=== PATIENT | female | born 1995 | race African-American/Black ===

== ENCOUNTER 2023-02-11 20:47 | Outpatient (REF) | payer MEDICAID, SELFPAY ==
[2023-02-16 15:08] LABS: Age Gdln ACOG Testing Note (.); IGP, rfx Aptima HPV ASCU Note (.)
== END 2023-02-11 20:48 ==
LOC: LAB 20:47
PROVIDERS: PCP Family Medicine; Visit Provider Physician Assistant
DX: Z12.4 Encounter for screening for malignant neoplasm of cervix (principal)
CPT/HCPCS: G0145

== ENCOUNTER 2023-02-14 08:26 | Outpatient (OUT) | payer MEDICAID, SELFPAY ==
[2023-02-14 09:31] LABS: Glucose 1 Hour 161 mg/dL; Thyroid Stimulating Hormone 0.508 uIU/mL (0.358-3.740)
[2023-02-16 18:07] LABS: AFP Value 38.1 ng/mL (.); Gest. Age on Collection Date 18.4 weeks (.); Gestat. Age Based On As provided (.); Insulin Dep Diabetes No (.); Maternal Age At EDD 27.7 yr (.); OSBR Risk 1 IN 10000 (.); Results Report (.)
== END 2023-02-14 08:27 ==
LOC: LAB 08:26
PROVIDERS: PCP Family Medicine; Visit Provider Obstetrics & Gynecology
DX: O26.892 Other specified pregnancy related conditions, second trimester (principal); E74.39 Other disorders of intestinal carbohydrate absorption; R73.09 Other abnormal glucose; R94.5 Abnormal results of liver function studies; N92.6 Irregular menstruation, unspecified
CPT/HCPCS: 36415; 82105; 82950; 84443

== ENCOUNTER 2023-03-12 09:37 | Outpatient (OUT) | payer MEDICAID, SELFPAY ==
--- NOTE | 2023-03-12 09:55 | US_ITS ---
Patient: SHADIA PARKS Exam Date: 03/12/2023 : 1995 Gender:F Ordering : DR Santino Mancini . Admission #: [id number] Family : DR Chan Pedro . Order #: [id number] CLICK HERE TO VIEW EXAM RADIOLOGY REPORT PROCEDURE: US BREAST RT LIMITED COMPARISON: None. INDICATIONS: Right Breast Lump N63.15 TECHNIQUE: Breast ultrasound was performed, with evaluation focusing only on specific areas of concern. FINDINGS: DIAGNOSTIC CATEGORY 1--NEGATIVE. RIGHT BREAST: No significant suspicious finding. RECOMMENDATIONS: CLINICAL EVALUATION. PLEASE NOTE: A NORMAL ULTRASOUND EXAMINATION DOES NOT EXCLUDE THE POSSIBILITY OF BREAST CANCER. A CLINICALLY SUSPICIOUS PALPABLE LUMP SHOULD BE BIOPSIED. Dictated by: Dominic Winkler M.D. on 03/12/2023 at 15:04 Approved by: Dominic Winkler M.D. on 03/12/2023 at 15:05
--- NOTE | 2023-03-12 09:56 | US_ITS ---
[address] [address] Patient Name: SHADIA PARKS MRN: [id number] date: 1995 Sex: F Assigned Patient Location: [place] Current Patient Location: [place] Accession/Order Number: [id number] Exam Date: 03/12/2023 10:00 Report Date: 03/12/2023 16:02 At the request of: ROBINA HOWE Procedure: US OB cervical length EXAMINATION: US OB anatomy, US OB cervical length HISTORY: Second Trimester Z34.92 COMPARISON: No relevant comparison available. TECHNIQUE: Transabdominal sonographic examination was performed for obstetrical and evaluation. FINDINGS: Number: 1 Heart Rate: 145.9 bpm H.B. /min Amniotic Fluid Volume: Subjectively normal Placental Location: Posterior with lower margin 0.4 cm from os. Cervix Length: 4.6 cm; closed. ANATOMY: Normal Structures -cerebellum, choroid plexus, cisterna magna, lateral cerebral ventricles, orbits, midline falx, hard palate, four-chamber heart, RVOT, LVOT, stomach, kidneys, bladder, umbilical cord insertion into abdomen, three-vessel cord, cervical spine, thoracic spine, lumbar spine, sacral spine, right upper extremity, left upper extremity, right lower extremity, left lower extremity. SUBOPTIMALLY SEEN: None ABNORMALITIES: Small amount of free fluid surrounding the heart and septation versus prominent cordae tendineae within left ventricle. BIOMETRY: BPD: 4.7 cm 20 weeks 1 days ; less than 3% HC: 17.7 cm 20 weeks 1 days; less than 3% AC: 15.7 cm 20 weeks 6 days; less than 3% FL: 3.6 cm 21 weeks 3 days; 5% EFW:391.4 grams; less than 3% FL/AC: 22.9 FL/BPD: 77.0 HC/AC: 1.1 GESTATIONAL AGE: Age by EDC: 23 weeks 0 days ABDIRIZAK by EDC: 07/09/2023 Age by current US: 20 weeks 5 days ABDIRIZAK by current US: 07/25/2023 US/US OB cervical length IMPRESSION: 1. Single live intrauterine with growth detailed above. 2. Estimated weight is less than 3rd percentile. 3. There appears to be small amount of fluid surrounding the heart and questionable prominent cordae tendineae versus septation within the left ventricle. Follow-up recommended. Electronically authenticated by: MELVIN LUGO Date: 03/12/2023 16:02
--- NOTE | 2023-03-12 09:56 | US_ITS ---
[address] [address] Patient Name: SHADIA PARKS MRN: [id number] date: 1995 Sex: F Assigned Patient Location: US Current Patient Location: US Accession/Order Number: [id number] Exam Date: 03/12/2023 10:00 Report Date: 03/12/2023 16:02 At the request of: ROBINA HOWE Procedure: US OB anatomy EXAMINATION: US OB anatomy, US OB cervical length HISTORY: Second Trimester Z34.92 COMPARISON: No relevant comparison available. TECHNIQUE: Transabdominal sonographic examination was performed for obstetrical and evaluation. FINDINGS: Number: 1 Heart Rate: 145.9 bpm H.B. /min Amniotic Fluid Volume: Subjectively normal Placental Location: Posterior with lower margin 0.4 cm from os. Cervix Length: 4.6 cm; closed. ANATOMY: Normal Structures -cerebellum, choroid plexus, cisterna magna, lateral cerebral ventricles, orbits, midline falx, hard palate, four-chamber heart, RVOT, LVOT, stomach, kidneys, bladder, umbilical cord insertion into abdomen, three-vessel cord, cervical spine, thoracic spine, lumbar spine, sacral spine, right upper extremity, left upper extremity, right lower extremity, left lower extremity. SUBOPTIMALLY SEEN: None ABNORMALITIES: Small amount of free fluid surrounding the heart and septation versus prominent cordae tendineae within left ventricle. BIOMETRY: BPD: 4.7 cm 20 weeks 1 days ; less than 3% HC: 17.7 cm 20 weeks 1 days; less than 3% AC: 15.7 cm 20 weeks 6 days; less than 3% FL: 3.6 cm 21 weeks 3 days; 5% EFW:391.4 grams; less than 3% FL/AC: 22.9 FL/BPD: 77.0 HC/AC: 1.1 GESTATIONAL AGE: Age by EDC: 23 weeks 0 days ABDIRIZAK by EDC: 07/09/2023 Age by current US: 20 weeks 5 days ABDIRIZAK by current US: 07/25/2023 US/US OB anatomy IMPRESSION: 1. Single live intrauterine with growth detailed above. 2. Estimated weight is less than 3rd percentile. 3. There appears to be small amount of fluid surrounding the heart and questionable prominent cordae tendineae versus septation within the left ventricle. Follow-up recommended. Electronically authenticated by: MELVIN LUGO Date: 03/12/2023 16:02
== END 2023-03-12 09:38 | disposition home or self-care (01) ==
LOC: US 09:37
PROVIDERS: PCP Family Medicine; Visit Provider Obstetrics & Gynecology
DX: Z34.92 Encounter for supervision of normal pregnancy, unspecified, second trimester (principal); N63.15 Unspecified lump in the right breast, overlapping quadrants
CPT/HCPCS: 76642; 76805; 76817

== ENCOUNTER 2023-04-24 00:56 | Observation (INO) | payer MEDICAID, SELFPAY ==
[2023-04-24 01:24] VITALS: BP 106/54; PULSE 84
[2023-04-24 01:26] VITALS: BP 106/54; PULSE 84; RESP 18; TEMP 36.8
[2023-04-24 02:02] LABS: Bilirubin Urine NEGATIVE (NEGATIVE); Blood Urine NEGATIVE (NEGATIVE); Clarity Urine CLEAR (CLEAR); Color Urine YELLOW (YELLOW); Glucose Urine UA NEGATIVE (NEGATIVE); Ketones Urine NEGATIVE (NEGATIVE); Leukocyte Esterase Urine NEGATIVE (NEGATIVE); Nitrite Urine NEGATIVE (NEGATIVE); Protein Urine NEGATIVE (NEG/TRACE); Specific Gravity Urine 1.025 (1.005-1.025); Urobilinogen Urine 0.2 EU/dL (0.2-1.0); pH Urine 6.5 (5.0-9.0)
[2023-04-24 02:05] LABS: Urine Microscopic Indicated NO
== END 2023-04-24 10:07 | disposition home or self-care (01) ==
PROVIDERS: Admitting Provider Obstetrics & Gynecology; PCP Family Medicine; Visit Provider Obstetrics & Gynecology
DX: O46.90 Antepartum hemorrhage, unspecified, unspecified trimester (principal); Z3A.00 Weeks of gestation of pregnancy not specified
CPT/HCPCS: 59025; 81003; G0378; G0379

== ENCOUNTER 2023-06-09 08:10 | Outpatient (OUT) | payer MEDICAID, SELFPAY ==
[2023-06-09 08:44] LABS: Glucose Fasting 84 mg/dL (74-106)
[2023-06-09 10:37] LABS: Glucose 1 Hour 138 mg/dL
[2023-06-09 11:16] LABS: Glucose 2 Hour 124 mg/dL
[2023-06-09 12:08] LABS: Glucose 3 Hour 135 mg/dL
== END 2023-06-09 08:11 | disposition home or self-care (01) ==
LOC: LAB 08:12
PROVIDERS: PCP Family Medicine; Visit Provider Obstetrics & Gynecology
DX: R73.09 Other abnormal glucose (principal)
CPT/HCPCS: 36415; 82951; 82952

== ENCOUNTER 2023-06-11 10:28 | Outpatient (OUT) | payer MEDICAID, SELFPAY ==
--- NOTE | 2023-06-11 10:30 | US_ITS ---
[address] [address] Patient Name: SHADIA PARKS MRN: [id number] date: 1995 Sex: F Assigned Patient Location: US Current Patient Location: US Accession/Order Number: [id number] Exam Date: 06/11/2023 10:30 Report Date: 06/11/2023 17:12 At the request of: ROBINA HOWE Procedure: US OB follow up EXAMINATION: US OB follow up HISTORY: FOLLOW UP FOR FLUID AROUND HEART COMPARISON: Ultrasound OB anatomy 03/12/2023 FINDINGS: Presentation: Cephalic Heart rate: 146 bpm Anatomy: Inadequate evaluation of heart due to position. No appreciable free fluid around the heart. GA: 35 weeks 1 day ABDIRIZAK: 07/15/2023 US/US OB follow up IMPRESSION: 1. Single live intrauterine . 2. Inadequate evaluation of the heart. Additional follow-up recommended. Electronically authenticated by: MELVIN LUGO Date: 06/11/2023 17:12
== END 2023-06-11 10:29 | disposition home or self-care (01) ==
LOC: US 10:29
PROVIDERS: PCP Family Medicine; Visit Provider Obstetrics & Gynecology
DX: Z36.2 Encounter for other antenatal screening follow-up (principal); Z3A.35 35 weeks gestation of pregnancy
CPT/HCPCS: 76816

== ENCOUNTER 2023-06-18 19:21 | Outpatient (REF) | payer MEDICAID, SELFPAY | END 2023-06-18 19:22 | disposition home or self-care (01) | LOC: LAB 19:21 | PROVIDERS: PCP Family Medicine; Visit Provider Obstetrics & Gynecology | DX: Z34.93 Encounter for supervision of normal pregnancy, unspecified, third trimester (principal) | CPT/HCPCS: 87081 ==

== ENCOUNTER 2023-06-26 10:13 | Outpatient (OUT) | payer MEDICAID, SELFPAY ==
--- NOTE | 2023-06-26 10:13 | US_ITS ---
[address] [address] Patient Name: SHADIA PARKS MRN: [id number] date: 1995 Sex: F Assigned Patient Location: US Current Patient Location: US Accession/Order Number: [id number] Exam Date: 06/26/2023 10:15 Report Date: 06/26/2023 15:08 At the request of: ROBINA HOWE Procedure: US OB growth EXAMINATION: US OB growth HISTORY: LGA COMPARISON: Ultrasound OB anatomy 03/12/2023 FINDINGS: Heart Rate: 137.0 bpm Number: 1.0 Position: CEPHALIC Amniotic Fluid Volume: 13.6 cm Maximum Vertical Pocket: 4.3 cm BIOMETRY: BPD: 8.3 cm cm; 33 weeks 2 days; <3% HC: 31.2 cmcm; 34 weeks 6 days ; < 3% AC: 32.5 cm cm; 36 weeks 3 days; 40% FL: 7.2 cm cm; 36 weeks 4 days; 33% EFW: 2809.5 grams; 24% FL/AC: 22.0 FL/BPD: 86.6 HC/AC: 1.0 GESTATIONAL AGE: Age by EDC: 37 weeks 2 days ABDIRIZAK by EDC: 07/15/2023 Age by US: 35 weeks 2 days ABDIRIZAK by US: 07/29/2023 US/US OB growth IMPRESSION: 1. Single live intrauterine with growth detailed above. 2. Biparietal diameter and head circumference are both < 3rd percentile. Electronically authenticated by: MELVIN LUGO Date: 06/26/2023 15:08
== END 2023-06-26 10:14 | disposition home or self-care (01) ==
LOC: US 10:13
PROVIDERS: PCP Family Medicine; Visit Provider Obstetrics & Gynecology
DX: O26.843 Uterine size-date discrepancy, third trimester (principal); Z3A.37 37 weeks gestation of pregnancy
CPT/HCPCS: 76816

== ENCOUNTER 2023-07-08 09:51 | Inpatient (IN) | payer MEDICAID, SELFPAY ==
[2023-07-08] VITALS (38 sets, daily range): BP systolic 86–131; BP diastolic 51–87; PULSE 64–92; RESP 14–24; TEMP 35.9–36.9; O2SAT 96–100
[2023-07-08] MEDS: 0.9 % SODIUM CHLORIDE 1,000 ML 1000 ML IV (11:00)
[2023-07-08] MEDS: 0.9 % SODIUM CHLORIDE 1,000 ML 125 ML IV (11:35)
[2023-07-08 11:45] LABS: Bilirubin Urine NEGATIVE (NEGATIVE); Blood Urine NEGATIVE (NEGATIVE); Clarity Urine CLEAR (CLEAR); Color Urine YELLOW (YELLOW); Glucose Urine UA NEGATIVE (NEGATIVE); Ketones Urine NEGATIVE (NEGATIVE); Leukocyte Esterase Urine NEGATIVE (NEGATIVE); Nitrite Urine NEGATIVE (NEGATIVE); Protein Urine 30 mg/dL (NEG/TRACE)
[2023-07-08 11:51] LABS: Amphetamine Screen Urine NEGATIVE (NEGATIVE); Barbiturates Screen Urine NEGATIVE (NEGATIVE); Benzodiazepines Screen Urine NEGATIVE (NEGATIVE); Buprenorphine Screen Urine NEGATIVE (NEGATIVE); Cannabinoid Screen Urine POSITIVE (NEGATIVE); Cocaine Screen Urine NEGATIVE (NEGATIVE); Methadone Screen Urine NEGATIVE (NEGATIVE); Methamphetamines Screen Urine NEGATIVE (NEGATIVE); Opiate Screen Urine NEGATIVE (NEGATIVE); Oxycodone Screen Urine NEGATIVE (NEGATIVE); Phencyclidine Screen Urine NEGATIVE (NEGATIVE); Tricyclic Antidepressant Urine NEGATIVE (NEGATIVE)
[2023-07-08 11:52] LABS: Basophils Percent Auto 0.2 % (0.2-2.0); Eosinophils Absolute Auto 0.1 10^3/uL (0.0-0.7); Eosinophils Percent Auto 0.4 % (0.9-7.0); Hematocrit 30.6 % (36.0-48.0); Hemoglobin 9.3 g/dL (12.0-16.0); Immature Granulocytes Abs Auto 0.08 10^3/uL (0.00-0.03); Immature Granulocytes Pct Auto 0.6 % (0.0-0.5); Lymphocytes Absolute Auto 2.9 10^3/uL (1.2-3.8); Lymphocytes Percent Auto 20.7 % (20.5-60.0); Mean Corpuscular HGB Conc 30.4 g/dL (29.9-35.2); Mean Corpuscular Hemoglobin 25.9 pg (26.7-34.0); Mean Corpuscular Volume 85.2 fL (81.0-99.0); Mean Platelet Volume 9.3 fL (9.5-13.5); Monocytes Absolute Auto 0.9 10^3/uL (0.3-0.8); Monocytes Percent Auto 6.2 % (1.7-12.0); Neutrophils Absolute Auto 10.1 10^3/uL (1.4-6.5); Neutrophils Percent Auto 71.9 % (43.0-75.0); Platelet Count 253 10^3/uL (150-450); Red Blood Count 3.59 10^6/uL (4.20-5.40); Red Cell Distribution Width 15.6 % (11.0-15.0)
[2023-07-08 11:56] LABS: Bacteria Urine TRACE #/HPF (NONE SEEN); Cast Seen? NONE SEEN #/LPF (NONE SEEN); Crystals Seen? None Seen #/HPF (None Seen); Mucus Urine SMALL (NONE SEEN); Squamous Epithelial Cell Urine MODERATE #/LPF (NONE/RARE)
[2023-07-08] MEDS: CEFAZOLIN SODIUM/DEXTROSE,ISO 2 GM/50 ML PIGGYBACK IV ×2 (12:21→17:52)
[2023-07-08] MEDS: LACTATED RINGER'S SOLUTION 1,000 ML 50 ML IV ×2 (12:44→13:18)
--- NOTE | 2023-07-08 13:30 | P.ON_ITS ---
Brief Operative Note Date of procedure: 07/08/23 Pre-op diagnosis: iup at 39wks, previous c/s, desires sterilization Post-op diagnosis: same as pre-op Procedure: NAME OF PROCEDURE: [ section with bilateral salpingectomy ] PROCEDURE: Patient was taken back to the Operating Room where she was given a spinal anesthesia with Duramorph without difficulty. She was prepped and draped in the normal sterile fashion. A Pfannenstiel skin incision was then made 2?cm above the symphysis pubis and carried down to underlying rectus fascia using a Bovie. The fascia was incised in the midline and extended laterally using Buck scissors. Two Alvin clamps were placed on the superior aspect of the fascia and dissected off the underlying rectus muscles. The same was performed on the inferior aspect as well. The muscles were then in the midline. Peritoneum was identified and entered bluntly. The peritoneum was then extended superiorly and inferiorly with good visualization of the bladder. The bladder blade was inserted. Vesicouterine peritoneum was identified, tented up, and entered with Metzenbaum scissors. A bladder flap was then created digitally. The bladder blade was reinserted. A low transverse incision was made on the patient's uterus and extended laterally digitally. The infant was then delivered atraumatically after the bladder blade was removed in the cephalic position. The cord was clamped and cut. Cord blood was obtained. The infant was handed off to awaiting team. The patient's placenta was spontaneously delivered. The uterus was then exteriorized. The uterus was cleared of all clots and debris. The bladder blade was reinserted. The patient's uterine incision was closed using #0 Vicryl in a running lock fashion. Excellent hemostasis was assured.? The rt tube was identified and grasped with babock, the ligasure was used to transect and ligate the tube in its entirity, this was done on the contralateral side as well. The uterus was then returned to the patient's abdomen. The patient's abdomen was copiously irrigated using warm saline. Peritoneal gutters were cleared of all clots and debris. Again excellent hemostasis was assured. The patient's fascia was closed using #0 Vicryl in a running fashion. The patie nt's skin was closed using 4-0 Vicryl subcuticularly. The patient tolerated the procedure well. Sponge, lap, and needle counts were correct x2. The patient was taken to the Recovery Room in stable condition. Anesthesia: spinal Surgeon: Santino Mancini [employer] Secretary: Kylah Vila Estimated blood loss (mL): 600 Pathology: other (placenta and tubes) Condition: stable Disposition: PACU
--- NOTE | 2023-07-08 13:34 | PM.OBPRCCS ---
Procedure Pre-op/Post-op diagnoses: Pre-Op/Post-Op Diagnoses Operation Date: 07/08/23 12:15 <No data on this case meets the specified criteria> Procedure: Procedures Operation Date: 07/08/23 12:15 Actual Procedure Side Surgeon p repeat with salpingectomy Not Applicable Santino Mancini DO Jewelry Consultant: Sadaf Vila Estimated blood loss (mL): 600 Disposition: floor Anesthesia type: Spinal
[2023-07-08] MEDS: OXYTOCIN/0.9 % SODIUM CHLORIDE 20 UNITS/1,000 ML PLAST..BAG 125 UNIT IV (14:00)
[2023-07-08] MEDS: ONDANSETRON 4 MG RAPDIS TABLET PO (15:20)
[2023-07-08] MEDS: KETOROLAC TROMETHAMINE 30 MG/ML VIAL IVP ×2 (15:20→23:14)
[2023-07-08] MEDS: PROMETHAZINE HCL 25 MG/ML VIAL IV (20:06)
[2023-07-08] MEDS: ENOXAPARIN SODIUM 40 MG/0.4 ML SYRINGE SUBQ (23:14)
[2023-07-09] VITALS (7 sets, daily range): BP systolic 104–121; BP diastolic 56–71; PULSE 71–72; RESP 16; TEMP 36.2–36.8
[2023-07-09] MEDS: 0.9 % SODIUM CHLORIDE 1,000 ML 999 ML IV (05:02)
[2023-07-09 06:21] LABS: Basophils Percent Auto 0.2 % (0.2-2.0); Eosinophils Absolute Auto 0.1 10^3/uL (0.0-0.7); Eosinophils Percent Auto 0.7 % (0.9-7.0); Hematocrit 26.8 % (36.0-48.0); Hemoglobin 8.2 g/dL (12.0-16.0); Immature Granulocytes Abs Auto 0.08 10^3/uL (0.00-0.03); Immature Granulocytes Pct Auto 0.6 % (0.0-0.5); Lymphocytes Absolute Auto 3.3 10^3/uL (1.2-3.8); Lymphocytes Percent Auto 23.9 % (20.5-60.0); Mean Corpuscular HGB Conc 30.6 g/dL (29.9-35.2); Mean Corpuscular Hemoglobin 25.8 pg (26.7-34.0); Mean Corpuscular Volume 84.3 fL (81.0-99.0); Mean Platelet Volume 9.5 fL (9.5-13.5); Monocytes Absolute Auto 1.2 10^3/uL (0.3-0.8); Monocytes Percent Auto 8.3 % (1.7-12.0); Neutrophils Absolute Auto 9.2 10^3/uL (1.4-6.5); Neutrophils Percent Auto 66.3 % (43.0-75.0); Platelet Count 240 10^3/uL (150-450); Red Blood Count 3.18 10^6/uL (4.20-5.40); Red Cell Distribution Width 15.8 % (11.0-15.0); White Blood Count 13.9 10^3/uL (4.0-11.0)
--- NOTE | 2023-07-09 06:51 | PM.OBPN ---
OB - PN: Subj Subjective Patient comments: no complaints and pain well controlled [place] status: doing well Exam Constitutional Vital Signs, click to edit/add: Last Vital Signs Temp 98.2 F 07/09/23 04:14 Pulse 72 07/09/23 04:14 Resp 16 07/09/23 04:14 BP 104/62 07/09/23 04:14 Pulse Ox 100 07/08/23 15:30 O2 Del Method Room Air 07/09/23 04:14 Documenting provider has reviewed patient's vital signs: yes Common normals: no apparent distress Respiratory Common normals: normal respiratory effort and clear to auscultation bilaterally Cardio Common normals: regular rate and regular rhythm GI Common normals: Normal to inspection, nondistended, normoactive bowel sounds present Extremity Common normals: no clubbing, cyanosis or edema and no calf tenderness Results Labs Labs: Short CBC 07/08/23 07/09/23 Range/Units 10:05 06:07 WBC 14.0 H 13.9 H (4.0-11.0) 10^3/uL Hgb 9.3 L 8.2 L (12.0-16.0) g/dL Hct 30.6 L 26.8 L (36.0-48.0) % Plt Count 253 240 (150-450) 10^3/uL Urine 07/08/23 Range/Units 10:30 Urine Color Yellow (YELLOW) Urine Clarity Clear (CLEAR) Urine pH 8.0 (5.0-9.0) Ur Specific [place] 1.020 (1.005-1.025) Urine Protein 30 A (NEG/TRACE) mg/dL Urine Glucose (UA) Negative (NEGATIVE) mg/dL OB - PN: A/P Plan - day: 1 Plan: routine postop care Time Spent with Patient Time: Total time spent is greater than 50% in coordination of care (as documented) at patient's floor/unit and/or counseling patient: Total time spent with greater than 50% in coordination of care (as documented) at patient's floor/unit and/or counseling patient: less than 15 minutes
--- NOTE | 2023-07-09 08:06 | PC.NURSE ---
Awake and alert, plan of care discussed, voices no complaints-discussed hx of depression and orders recieved by physician for antidepressant therapy, urine clearing in sanchez, iv continues at 125 ml/hr, dr dye in room
[2023-07-09] MEDS: KETOROLAC TROMETHAMINE 30 MG/ML VIAL IVP (08:35)
[2023-07-09] MEDS: CITALOPRAM HYDROBROMIDE 20 MG TABLET PO (08:35)
[2023-07-09] MEDS: DOCUSATE SODIUM 100 MG CAPSULE PO (08:36)
[2023-07-09] MEDS: IBUPROFEN 400 MG TABLET 800 MG PO ×2 (15:36→23:16)
--- NOTE | 2023-07-09 19:29 | W.PC.ACHO ---
Registration Status: ADM IN Primary Language: Guatemalan Preferred Language: Guatemalan report given Active Medications Generic Name Dose Route Start Last Admin Trade Name Freq PRN Reason Stop Dose Admin Al Hydroxide/Mg Hydroxide 2,400 mg 07/08/23 13:27 Magnesium Hydroxide 2,400 Mg/10 Ml Oral.Susp PO Q6H PRN Dyspepsia Diphenhydramine HCl 25 mg 07/08/23 13:27 Diphenhydramine Hcl 50 Mg/Ml (1ml) Vial IV 07/09/23 13:28 Q6H PRN Itching Diphtheria/Pertussis/Tetanus Vacc 0.5 ml 07/10/23 09:00 Adacel Diph,Pertuss(Acell),Tet Vac/Pf 0.5 Ml Adult Syringe IM 07/10/23 09:01 .ONCE ONE Docusate Sodium 100 mg 07/09/23 09:00 Docusate Sodium 100 Mg Capsule PO BID MINDI Enoxaparin Sodium 40 mg 07/08/23 23:00 07/08/23 23:14 Enoxaparin Sodium 40 Mg/0.4 Ml Syringe SUBQ 40 mg Q24H MINDI Administration Sodium Chloride 1,000 mls @ 125 mls/hr 07/08/23 11:15 07/09/23 05:02 Sodium Chloride 0.9% 1,000 Ml IV 999 mls/hr .Q8H MINDI Administration Ibuprofen 800 mg 07/08/23 13:27 Ibuprofen 400 Mg Tablet PO Q8H PRN Pain Ketorolac Tromethamine 30 mg 07/08/23 13:27 07/08/23 23:14 Ketorolac Tromethamine 30 Mg/Ml Vial IVP 07/10/23 13:28 30 mg Q6H PRN Administration Pain Measles/Mumps/Rubella Vaccine Live 0.5 ml 07/10/23 09:00 Measles,Mumps,Rubella Vacc/Pf 0.5 Ml Vial SQ 07/10/23 09:01 .ONCE ONE Ondansetron HCl 4 mg 07/08/23 13:27 07/08/23 15:20 Ondansetron 4 Mg Rapdis Tablet PO 4 mg Q6H PRN Administration Nausea And Vomiting Ondansetron HCl 4 mg 07/08/23 13:27 Ondansetron Pf 4 Mg/2 Ml Vial IV Q6H PRN Nausea And Vomiting Oxycodone/Acetaminophen 1 tab 07/08/23 13:27 Oxycodone Hcl/Acetaminophen 5mg/325mg PO Q4H PRN Pain Scale 4-6 Oxycodone/Acetaminophen 2 tab 07/08/23 13:27 Oxycodone Hcl/Acetaminophen 5mg/325mg PO Q4H PRN Pain Scale 7-10 Promethazine HCl 25 mg 07/08/23 19:12 07/08/23 20:06 Promethazine Hcl 25 Mg/Ml Vial IV 25 mg Q6H PRN Administration Nausea And Vomiting Senna 17.2 mg 07/08/23 20:00 Sennosides 8.6 Mg Tablet PO QHS PRN Constipation Simethicone 80 mg 07/08/23 13:27 Simethicone 80 Mg Tab.Chew PO QID PRN Abdominal Distention Diet Category Date Time Status Regular Consistency Diet Diet 07/08/23 13:28 Active IV Insertion/Site Date of IV Line Insertion [18g 07/08/23 right Upper Arm] IV Insertion Time [18g right 10:55 Upper Arm] Neurology Patient orientation (short person list) Respiratory Lung sounds [Throughout] Inspiratory Wheeze Lung sounds [Throughout] Inspiratory Wheeze Lung sounds [Throughout] Inspiratory Wheeze Pulse Oximetry 100 Pulse Oximetry 100 Pulse Oximetry 100 Pulse Oximetry 100 Pulse Oximetry 100 Pulse Oximetry 100 Pulse Oximetry 96 Pulse Oximetry 100 Pulse Oximetry 100 Pulse Oximetry 100 Pulse Oximetry 99 Pulse Oximetry 100 Pulse Oximetry 100 Pulse Oximetry 100 Pulse Oximetry 100 Pulse Oximetry 100 Pulse Oximetry 100 Pulse Oximetry 100 Pulse Oximetry 99 Pulse Oximetry 99 Oxygen Delivery Method Room Air Oxygen Delivery Method Room Air Oxygen Delivery Method Room Air Oxygen Delivery Method Room Air Oxygen Delivery Method Room Air Oxygen Delivery Method Room Air Oxygen Delivery Method Room Air Oxygen Delivery Method Room Air Oxygen Delivery Method Room Air Oxygen Delivery Method Room Air Oxygen Delivery Method Room Air Oxygen Delivery Method Room Air Oxygen Delivery Method Room Air Oxygen Delivery Method Room Air Cardiology Heart Sounds Strong,Regular Heart Sounds Strong,Regular Heart Sounds Strong,Regular Catheter Urinary Catheter Date of 07/08/23 Insertion [Urethral] Urinary Catheter Time of 10:43 Insertion [Urethral]
--- NOTE | 2023-07-09 19:30 | W.PC.ACHO ---
Registration Status: ADM IN Primary Language: Nauruan Preferred Language: Nauruan Report recieved from David Gandhi RN. Active Medications Generic Name Dose Route Start Last Admin Trade Name Freq PRN Reason Stop Dose Admin Al Hydroxide/Mg Hydroxide 2,400 mg 07/08/23 13:27 Magnesium Hydroxide 2,400 Mg/10 Ml Oral.Susp PO Q6H PRN Dyspepsia Celecoxib 20 mg 07/09/23 08:15 07/09/23 08:35 Citalopram Hydrobromide 20 Mg Tablet PO 20 mg QD MINDI Administration Diphtheria/Pertussis/Tetanus Vacc 0.5 ml 07/10/23 09:00 Adacel Diph,Pertuss(Acell),Tet Vac/Pf 0.5 Ml Adult Syringe IM 07/10/23 09:01 .ONCE ONE Docusate Sodium 100 mg 07/09/23 09:00 07/09/23 08:36 Docusate Sodium 100 Mg Capsule PO 100 mg BID MINDI Administration Enoxaparin Sodium 40 mg 07/08/23 23:00 07/08/23 23:14 Enoxaparin Sodium 40 Mg/0.4 Ml Syringe SUBQ 40 mg Q24H MINDI Administration Sodium Chloride 1,000 mls @ 125 mls/hr 07/08/23 11:15 07/09/23 05:02 Sodium Chloride 0.9% 1,000 Ml IV 999 mls/hr .Q8H MINDI Administration Ibuprofen 800 mg 07/08/23 13:27 07/09/23 15:36 Ibuprofen 400 Mg Tablet PO 800 mg Q8H PRN Administration Pain Ketorolac Tromethamine 30 mg 07/08/23 13:27 07/09/23 08:35 Ketorolac Tromethamine 30 Mg/Ml Vial IVP 07/10/23 13:28 30 mg Q6H PRN Administration Pain Measles/Mumps/Rubella Vaccine Live 0.5 ml 07/10/23 09:00 Measles,Mumps,Rubella Vacc/Pf 0.5 Ml Vial SQ 07/10/23 09:01 .ONCE ONE Ondansetron HCl 4 mg 07/08/23 13:27 07/08/23 15:20 Ondansetron 4 Mg Rapdis Tablet PO 4 mg Q6H PRN Administration Nausea And Vomiting Ondansetron HCl 4 mg 07/08/23 13:27 Ondansetron Pf 4 Mg/2 Ml Vial IV Q6H PRN Nausea And Vomiting Oxycodone/Acetaminophen 1 tab 07/08/23 13:27 Oxycodone Hcl/Acetaminophen 5mg/325mg PO Q4H PRN Pain Scale 4-6 Oxycodone/Acetaminophen 2 tab 07/08/23 13:27 Oxycodone Hcl/Acetaminophen 5mg/325mg PO Q4H PRN Pain Scale 7-10 Promethazine HCl 25 mg 07/08/23 19:12 07/08/23 20:06 Promethazine Hcl 25 Mg/Ml Vial IV 25 mg Q6H PRN Administration Nausea And Vomiting Senna 17.2 mg 07/08/23 20:00 Sennosides 8.6 Mg Tablet PO QHS PRN Constipation Simethicone 80 mg 07/08/23 13:27 Simethicone 80 Mg Tab.Chew PO QID PRN Abdominal Distention Respiratory Oxygen Delivery Method Room Air Oxygen Delivery Method Room Air Oxygen Delivery Method Room Air Oxygen Delivery Method Room Air Oxygen Delivery Method Room Air Oxygen Delivery Method Room Air Cardiology Heart Sounds Strong,Regular Heart Sounds Strong,Regular Bowels Date of Last Bowel Movement [ 07/09/23 All Quadrants]
[2023-07-09] MEDS: ENOXAPARIN SODIUM 40 MG/0.4 ML SYRINGE SUBQ (23:16)
[2023-07-10 04:37] VITALS: BP 117/73; PULSE 72
[2023-07-10 04:42] VITALS: PULSE 72; RESP 14; TEMP 36.8
[2023-07-10] MEDS: IBUPROFEN 400 MG TABLET 800 MG PO (07:28)
[2023-07-10 07:30] VITALS: BP 114/70; PULSE 66; RESP 16; TEMP 36.6
--- NOTE | 2023-07-10 07:33 | W.PC.ACHO ---
Registration Status: ADM IN Primary Language: South Sudanese Preferred Language: [place]ese Report given to Hermelindo Crabtree RN. Active Medications Generic Name Dose Route Start Last Admin Trade Name Freq PRN Reason Stop Dose Admin Al Hydroxide/Mg Hydroxide 2,400 mg 07/08/23 13:27 Magnesium Hydroxide 2,400 Mg/10 Ml Oral.Susp PO Q6H PRN Dyspepsia Celecoxib 20 mg 07/09/23 08:15 07/09/23 08:35 Citalopram Hydrobromide 20 Mg Tablet PO 20 mg QD MINDI Administration Diphtheria/Pertussis/Tetanus Vacc 0.5 ml 07/10/23 09:00 Adacel Diph,Pertuss(Acell),Tet Vac/Pf 0.5 Ml Adult Syringe IM 07/10/23 09:01 .ONCE ONE Docusate Sodium 100 mg 07/09/23 09:00 07/09/23 20:24 Docusate Sodium 100 Mg Capsule PO Not Given BID MINDI Enoxaparin Sodium 40 mg 07/08/23 23:00 07/09/23 23:16 Enoxaparin Sodium 40 Mg/0.4 Ml Syringe SUBQ 40 mg Q24H MINDI Administration Sodium Chloride 1,000 mls @ 125 mls/hr 07/08/23 11:15 07/09/23 05:02 Sodium Chloride 0.9% 1,000 Ml IV 999 mls/hr .Q8H MINDI Administration Ibuprofen 800 mg 07/08/23 13:27 07/10/23 07:28 Ibuprofen 400 Mg Tablet PO 800 mg Q8H PRN Administration Pain Ketorolac Tromethamine 30 mg 07/08/23 13:27 07/09/23 08:35 Ketorolac Tromethamine 30 Mg/Ml Vial IVP 07/10/23 13:28 30 mg Q6H PRN Administration Pain Measles/Mumps/Rubella Vaccine Live 0.5 ml 07/10/23 09:00 Measles,Mumps,Rubella Vacc/Pf 0.5 Ml Vial SQ 07/10/23 09:01 .ONCE ONE Ondansetron HCl 4 mg 07/08/23 13:27 07/08/23 15:20 Ondansetron 4 Mg Rapdis Tablet PO 4 mg Q6H PRN Administration Nausea And Vomiting Ondansetron HCl 4 mg 07/08/23 13:27 Ondansetron Pf 4 Mg/2 Ml Vial IV Q6H PRN Nausea And Vomiting Oxycodone/Acetaminophen 1 tab 07/08/23 13:27 Oxycodone Hcl/Acetaminophen 5mg/325mg PO Q4H PRN Pain Scale 4-6 Oxycodone/Acetaminophen 2 tab 07/08/23 13:27 Oxycodone Hcl/Acetaminophen 5mg/325mg PO Q4H PRN Pain Scale 7-10 Promethazine HCl 25 mg 07/08/23 19:12 07/08/23 20:06 Promethazine Hcl 25 Mg/Ml Vial IV 25 mg Q6H PRN Administration Nausea And Vomiting Senna 17.2 mg 07/08/23 20:00 Sennosides 8.6 Mg Tablet PO QHS PRN Constipation Simethicone 80 mg 07/08/23 13:27 Simethicone 80 Mg Tab.Chew PO QID PRN Abdominal Distention Respiratory Oxygen Delivery Method Room Air Oxygen Delivery Method Room Air Bowels Date of Last Bowel Movement [ 07/09/23 All Quadrants]
--- NOTE | 2023-07-10 08:44 | PM.OBPN ---
OB - PN: Subj Subjective Patient comments: no complaints and pain well controlled [place] status: doing well Exam Constitutional Vital Signs, click to edit/add: Last Vital Signs Temp 97.9 F 07/10/23 07:30 Pulse 66 07/10/23 07:30 Resp 16 07/10/23 07:30 BP 114/70 07/10/23 07:30 Pulse Ox 100 07/08/23 15:30 O2 Del Method Room Air 07/10/23 07:30 Documenting provider has reviewed patient's vital signs: yes Common normals: no apparent distress Respiratory Common normals: normal respiratory effort and clear to auscultation bilaterally Cardio Common normals: regular rate and regular rhythm GI Common normals: Normal to inspection, nondistended, normoactive bowel sounds present Extremity Common normals: no clubbing, cyanosis or edema and no calf tenderness OB - PN: A/P Plan - day: 2 Plan: routine postop care, discharge home and follow up 6 weeks Time Spent with Patient Time: Total time spent is greater than 50% in coordination of care (as documented) at patient's floor/unit and/or counseling patient: Total time spent with greater than 50% in coordination of care (as documented) at patient's floor/unit and/or counseling patient: less than 15 minutes
[2023-07-10] MEDS: CITALOPRAM HYDROBROMIDE 20 MG TABLET PO (08:50)
--- NOTE | 2023-07-20 | DS_ITS ---
DISCHARGE DATE: ??07/20/2023 PRIMARY DIAGNOSES: 1.? Intrauterine at 39 weeks. 2.? Previous . 3.? Desires permanent sterilization. PROCEDURE:? section with bilateral salpingectomy. HOSPITAL COURSE:? As expected.? Please see chart for full details.? LABORATORY DATA:? Please see chart. COMPLICATIONS:? None. DISCHARGE CONDITION:? Stable. CONSULTATION:? Anesthesia. DISCHARGE INSTRUCTIONS: 1.? Diet:? Regular. 2.? Medications: a.? Percocet 5/325 one to two p.o. every 4-6 hours p.r.n. pain. b.? Motrin 800 one p.o. every 8 hours p.r.n. pain. 3.? Followup in one week. Restrictions:? Pelvic rest for 6 weeks.? No heavy lifting.? May drive when pain free and no longer on narcotics. MTDD
== END 2023-07-10 10:45 | disposition home or self-care (01) | DRG 539 ==
PROVIDERS: Admitting Provider Obstetrics & Gynecology; PCP Family Medicine; Visit Provider Obstetrics & Gynecology
PROC: 10D00Z1 Extraction of Products of Conception, Low, Open Approach (ICD-10-PCS; CPT 59514; principal; 2023-07-08 12:15)
DX: O34.211 Maternal care for low transverse scar from previous cesarean delivery (principal); O99.334 Smoking (tobacco) complicating childbirth; F17.210 Nicotine dependence, cigarettes, uncomplicated; Z3A.39 39 weeks gestation of pregnancy; Z37.0 Single live birth; Z79.82 Long term (current) use of aspirin; Z79.899 Other long term (current) drug therapy; Z83.3 Family history of diabetes mellitus; Z83.49 Family history of other endocrine, nutritional and metabolic diseases; Z82.49 Family history of ischemic heart disease and other diseases of the circulatory system; Z83.2 Family history of diseases of the blood and blood-forming organs and certain disorders involving the immune mechanism; Z81.8 Family history of other mental and behavioral disorders; Z23 Encounter for immunization
CPT/HCPCS: 36415; 51702; 80307; 81001; 85025; 86850; 86900; 86901; 88302; 96372; 96374; 96376

== ENCOUNTER 2025-04-14 15:45 | Outpatient (OUT) | payer MEDICAID, SELFPAY ==
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
--- OUTSIDE RECORDS SUMMARY | 2024-03-02 12:15 | XMS_ITS ---
Author Organization The [facility] in [place] Address [address] [place] [address] Care Team Providers Care Hospice Volunteer Coordinator Name Role Phone Reno Rangel Primary Care Provider Allergies No Known Allergies REASON FOR VISIT yearly- meds, Discuss Iron pills- said was on those in the past Medications Medication SIG (Take, Route, Frequency, Duration) Notes Start Date End Date Status Citalopram Hydrobromide 40 MG 1 tablet Orally Once a day for 30 days Active Abilify 15 MG 1 tablet Orally Once a day Active Social History Tobacco Use: Social History Observation Description Date Details (start date - stop date) Current Smoker 08/31/2015 - NA Tobacco Control (Standard) Question Answer Notes Tobacco use: Current smoker When did you start smoking? 08/31/2015 How often do you smoke cigarettes? Every day How many cigarettes a day do you smoke? 11-20 Additional Findings: Tobacco user Modera te cigarette smoker (10-19 cigs/day) AUDIT-C (Standard) Question Answer Notes Did you have a drink contain ing alcohol in the past year? Yes How often did you have six o r more drinks on one occasion in the past year? Never (0 point) How many drinks did you have on a typical day when you were drinking in the past year? 1 or 2 drinks (0 point) How often did you have a dri nk containing alcohol in the past year? Monthly or less (1 point) Points 1 Interpretation Negative Problems Problem Type SNOMED Code ICD Code Onset Dates Problem Status W/U Status Risk Notes Problem Well adult (620992433) Well adult (Z00.00) Active confirmed Vital Signs Weight 220.4 lbs 03/02/2024 Height 63 in 03/02/2024 Blood pressure systolic 108 mm Hg 03/02/20 24 Blood pressure diastolic 64 mm Hg 024 BMI 39.04 kg/m2 03/02/2024 Encounters Encounter Location Date Provider Diagnosis [facility] [address] [place] [address] 03/02/2024 Reno Rangel Well adult Z00.0 0 Assessments Encounter Date Diagnosis (ICD Code) Assessment Notes Treatment Notes Treatment Clinical Notes Section Notes 03/02/2024 Well adult (ICD-10 - Z00.00) Plan Of Treatment Medication Medication Name Sig Start Date Stop Date Notes Citalopram Hydrobromide 40 MG 1 tablet O rally Once a day for 30 days Abilify 15 MG 1 tablet Orally Once a day Pending Test Test Name Order Date CBC AUTO DIFF 03/02/2024 FERRITIN 03/02/2024 GLYCOHEMOGLOBIN A1C 03/02/2024 IRON 03/02/2024 LIPID PROFILE 03/02/2024 PROF 14(COMP METB) 03/02/2024 THYROID PROFILE WITH TSH 03/02/2024 Progress Notes * Prachi PARKS MDOB:[birth year] (28 yo F)Acc No.[id number]:03/02/2024 Progress Note Patient: Prachi CORONEL Provider: Nathaly Rangel ([facility])MD :1995 A ge:28 Y S ex:Female Date:03/02/2024 Address:[facility] [address], [id number] Check In:04:26 PM ESTCheck O ut:04:42 PM EST Subjective: * Chief Complaints: * Y early- medsDiscuss Iron pills- said was on those in the past * HPI: D epression Screening: PHQ-2 (2015 Edition) L ittle interest or pleasure in doing things??Not at all F eeling down, depressed, or hopeless? N ot at all T otal Score 0 G eneral: no issues. * ROS: E ENT: hearing changes d enies, denies. v isual changes d enies, denies. n on-healing mouth sores d enies, denies. s wollen glands or neck lumps?denies, denies. h oarseness d enies, denies. s ore throat d enies, denies. d ifficulty swallowing d enies, denies. n ose bleeds d enies, denies. n walker congestion d enies, denies. e ar ache d enies, denies. e ar discharge d enies, denies.?ringing in ears d enies, denies. l ight sensitivity d enies, denies. e ye pain denies, denies. b lurring d enies, denies. e ye irritation d enies, denies. d ouble vision d enies, denies. v ision loss d enies, denies. G eneral/Constitutional: Sweats: D enies, Denies. F atigue d enies, denies.?Sleep problems d enies, denies. A norexia d enies, denies. M alaise d enies, denies. W eight loss d enies, denies. F atigue or Weakness d enies, denies. F ever or Chills d enies, denies. C ardiovascular: Shortness of Breath w/lying flat d enies, denies. L ightheadedness/dizziness d enies, denies. C hest tightness/ heavy pressure d enies, denies.?Swelling of legs, ankles, or feet d enies, denies. W aking up with shortness of breath denies, denies. C hest pain d enies, denies. P alpitations d enies, denies.?Weight gain d enies, denies. R espiratory: Chronic or frequent cough d enies, denies. C oughing up blood d enies, denies. D ifficulty breathing d enies, denies. P roductive cough?denies, denies. S noring d enies, denies. S hortness of breath that awakens from sleep (PND) d enies, denies. C hest pain d enies, denies. S putum production d enies, denies. W heezing d enies, denies. M usculoskeletal: Joint pain d enies, denies. J oint Fluid d enies, denies. B ack pain d enies, denies. K nee pain d enies, denies. N abraham pain d enies, denies. J oint Stiffness d enies, denies. M uscle cramps d enies, denies. Weakness of muscles d enies, denies. A rthritis d enies, denies. M uscle aches?denies, denies. P ain in shoulder(s) d enies, denies. S wollen joints d enies, denies. * Active Problem List N93.8 Dysfunctional uterin e bleeding Modified On:01/06/2024 Status:confirmed L91.8 Acquired skin tag Modified On:01/18/2024 Status:confirmed M54.12 Cervical radicular p ain Modified On:01/18/2024 Status:confirmed L30.9 Eczema Modified On:01/18/2024 Status:confirmed J01.90 Acute sinusitis Modified On:01/18/2024 Status:confirmed N92.1 Breakthrough bleedin g Modified On:01/18/2024 Status:confirmed R53.83 Fatigue Modified On:01/18/2024 Status:confirmed E66.01 Morbid obesity Modified On:01/18/2024 Status:confirmed Z00.00 Annual physical exam Modified On:01/18/2024 Status:confirmed Z00.00 Well adult Modified On:03/02/2024 Status:confirmed * Medical History: * Surgical History: C ESAREAN DELIVERY x3 * Hospitalization/Major Diagno stic Procedure: s ee above * Family History: F ather: alive, colon cancer, Hypercholesterolemia, diagnosed with Other malignant neoplasm of unspecified site. M other: alive, Heart Attack, , Hypercholesterolemia. B rother(s): alive. Sister(s): alive. D sherieer(s): alive. 1 brother(s) , 1 sister(s) - healthy. 3 daughter(s) - healthy. . * Social History: T obacco Use: T obacco Control (Standard) T obacco use: C urrent smoker W hen did you start smoking? 0 08/31/2015 H ow often do you smoke cigarettes? E very day H ow many cigarettes a day do you smoke? 1 1-20 A dditional Findings: Tobacco user M oderate cigarette smoker (10-19 cigs/day) D rug/Alcohol: A DIPAK-C (Standard) D id you have a drink containing alcohol in the past year? Y es H ow often did you have six or more drinks on one occasion in the past year? N ever (0 point) H ow many drinks did you have on a typical day when you were drinking in the past year? 1 or 2 drinks (0 point) H ow often did you have a drink containing alcohol in the past year? M onthly or less (1 point) P oints 1 I nterpretation N egative * Medications: T akingAbilify(ARIPiprazole) 10 MG Tablet 1 tablet Orally Once a day Citalopram Hydrobromide 40 MG Tablet 1 tablet Orally Once a day Medication List reviewed and reconciled with the patientTaking Abilify(ARIPiprazole) 10 MG Tablet 1 tablet Orally Once a day Taking Citalopram Hydrobromide 40 MG Tablet 1 tablet Orally Once a day Medication List reviewed and reconciled with the patient * Allergies: N .K.D.A.no[Allergies Verified] Objective: * Vitals: W t:220.4lbs, Ht: 63 in, BP:108/64mm Hg, BMI:39.04Index, Ht-cm: 160.02 cm, Wt-k.97 kg. * Examination: P hysical Exam: GENERAL: w ell developed, well nourished, in no acute distress , well developed, well nourished, in no acute distress. HEAD: n ormocephalic/atraumatic , normocephalic/atraumatic.? EYES: p upils equal, round and reactive to light, conjunctivae and sclerae normal , pupils equal, round and reactive to light, conjunctivae and sclerae normal.? EARS: n o deformity or lesion of external ear, canals and TM appear normal bilaterally, TM's intact, not inflamed with normal light reflex, hearing grossly normal to conversational speech , no deformity or lesion of external ear, canals and TM appear normal bilaterally, TM's intact, not inflamed with normal light reflex, hearing grossly normal to conversational speech. NOSE: n o deformity, discharge, inflammation, or lesions , no deformity, discharge, inflammation, or lesions. MOUTH: m ucous membranes moist, normal oropharynx and posterior pharynx without lesions or exudates, tongue normal, dentition normal , mucous membranes moist, normal oropharynx and posterior pharynx without lesions or exudates, tongue normal, dentition normal. NECK: n abraham supple, no masses or palpable cervical nodes, trachea midline, thyroid without nodules, masses, tenderness, or enlargement , neck supple, no masses or palpable cervical nodes, trachea midline, thyroid without nodules, masses, tenderness, or enlargement. CHEST: n o chest wall deformity, no chest wall tenderness , no chest wall deformity, no chest wall tenderness. LUNGS: n ormal respiratory effort and clear to auscultation, no wheezes, rales, or rhonchi, good air exchange , normal respiratory effort and clear to auscultation, no wheezes, rales, or rhonchi, good air exchange. CARDIO: r egular rate and rhythm, normal S1 and S2, nor murmur, rub, or gallop , regular rate and rhythm, normal S1 and S2, nor murmur, rub, or gallop. PULSES: n ormal capillary refill , normal capillary refill.? ABDOMEN: s oft, non-distended, non-tender, no masses , soft, non-distended, non-tender, no masses. MUSCULOSKELETAL: n o deformity or scoliosis noted, normal range of motion, joints normal, no erythema, edema, effusion, or ecchymosis , no deformity or scoliosis noted, normal range of motion, joints normal, no erythema, edema, effusion, or ecchymosis. EXTREMITY: n o clubbing, cyanosis, edema, or deformity with normal ROM in both upper and lower bilateral extremities , no clubbing, cyanosis, edema, or deformity with normal ROM in both upper and lower bilateral extremities. NEUROLOGIC: g rossly normal , grossly normal. SKIN: n o rashes, ulcerations, or suspicious lesions , no rashes, ulcerations, or suspicious lesions. LYMPH NODES: n o cervical adenopathy, nodes normal , no cervical adenopathy, nodes normal. MENTAL STATUS: a lert and oriented x3, normal mood and affect , alert and oriented x3, normal mood and affect. Assessment: * Assessment: 1. W ell adult - Z00.00 (Primary) Plan: * Treatment: * Procedure Codes: * Preventive Medicine: Screenings/Counseling: B ND ACTION PLAN Above Normal BMI Follow-up D ietary management education, guidance, and counseling * * Sign off status: Completed Visit Status: C HK (Check Out) true * Provider: Nathaly Rangel ([facility])MD Date: 03/02/2024 Generated for Keii sonya/Marcelo/eTransmitting on: 0 04/14/2025 03:48 PM EDT History and Physical Notes * HPI (History of Present Illness) Category Sub-Category Detail Notes Category Not es General no issues Depression Screening PHQ-2 (2015 Edition) Little interest or pleasure in doing things?: Not at all Feeling down, depressed, or hopeless?: N ot at all Total Score: 0 Examination Category Sub-Category Detail Notes Category Not es Physical Exam GENERAL: well developed, well nourished, in no acute distress , well developed, well nourished, in no acute distress HEAD: normocephalic/atraum atic , normocephalic/atraumatic EYES: pupils equal, round and reactive to light, conjunctivae and sclerae normal , pupils equal, round and reactive to light, conjunctivae and sclerae normal EARS: no deformity or lesi on of external ear, canals and TM appear normal bilaterally, TM's intact, not inflamed with normal light reflex, hearing grossly normal to conversational speech , no deformity or lesion of external ear, canals and TM appear normal bilaterally, TM's intact, not inflamed with normal light reflex, hearing grossly normal to conversational speech NOSE: no deformity, discha rge, inflammation, or lesions , no deformity, discharge, inflammation, or lesions MOUTH: mucous membranes florin st, normal oropharynx and posterior pharynx without lesions or exudates, tongue normal, dentition normal , mucous membranes moist, normal oropharynx and posterior pharynx without lesions or exudates, tongue normal, dentition normal NECK: neck supple, no mass es or palpable cervical nodes, trachea midline, thyroid without nodules, masses, tenderness, or enlargement , neck supple, no masses or palpable cervical nodes, trachea midline, thyroid without nodules, masses, tenderness, or enlargement CHEST: no chest wall deform ity, no chest wall tenderness , no chest wall deformity, no chest wall tenderness LUNGS: normal respiratory e ffort and clear to auscultation, no wheezes, rales, or rhonchi, good air exchange , normal respiratory effort and clear to auscultation, no wheezes, rales, or rhonchi, good air exchange CARDIO: regular rate and rhy thm, normal S1 and S2, nor murmur, rub, or gallop , regular rate and rhythm, normal S1 and S2, nor murmur, rub, or gallop PULSES: normal capillary ref ill , normal capillary refill ABDOMEN: soft, non-distended, non-tender, no masses , soft, non-distended, non- tender, no masses RECTAL: MUSCULOSKELETAL: no deformity or scol iosis noted, normal range of motion, joints normal, no erythema, edema, effusion, or ecchymosis , no deformity or scoliosis noted, normal range of motion, joints normal, no erythema, edema, effusion, or ecchymosis EXTREMITY: no clubbing, cyanosi s, edema, or deformity with normal ROM in both upper and lower bilateral extremities , no clubbing, cyanosis, edema, or deformity with normal ROM in both upper and lower bilateral extremities NEUROLOGIC: grossly normal , maxx ssly normal SKIN: no rashes, ulceratio ns, or suspicious lesions , no rashes, ulcerations, or suspicious lesions LYMPH NODES: no cervical adenopat hy, nodes normal , no cervical adenopathy, nodes normal MENTAL STATUS: alert and oriented x 3, normal mood and affect , alert and oriented x3, normal mood and affect
--- OUTSIDE RECORDS SUMMARY | 2024-03-02 12:47 | XMS_ITS ---
Author Organization The [facility] in [place] Address [address] [place] [address] Care Team Providers Care Blade Boner Name Role Phone AshishReno brock Primary Care Provider [phone] IDALMIS RANGEL Unavailable [phone] REASON FOR VISIT refill meds Medications Medication SIG (Take, Route, Frequency, Duration) Notes Start Date End Date Status Citalopram Hydrobromide 40 MG 1 tablet Orally Once a day for 30 days Active Abilify 15 MG 1 tablet Orally Once a day for 30 days Active Encounters Encounter Location Date Provider Diagnosis [address] [address] 03/02/2024 IDALMIS RANGEL Well adult Z00.00 Assessments Encounter Date Diagnosis (ICD Code) Assessment Notes Treatment Notes Treatment Clinical Notes Section Notes 03/02/2024 Well adult (ICD-10 - Z00.00) Plan Of Treatment Medication Medication Name Sig Start Date Stop Date Notes Citalopram Hydrobromide 40 MG 1 tablet O rally Once a day for 30 days Abilify 15 MG 1 tablet Orally Once a day for 30 days Progress Notes * Prachi PARKS MDOB:[birth year] (28 yo F)Acc No.[id number]:03/02/2024 Patient: Scar EAGLEPrachi :1995 A ge:28 Y S ex:Female Address:[address] [place] [address] * Refills Refill Abilify Tablet, 15 MG, Orally, 30, 1 tablet, Once a day, 30 days, Refills=11 Refill Citalopram Hydrobromide Tablet, 40 MG, Orally, 30 Tablet, 1 tablet, Once a day, 30 days, Refills=11 * true * Date: Generated for Rhett hassan/Marcelo/Petritting on: 0 04/14/2025 03:48 PM EDT
--- OUTSIDE RECORDS SUMMARY | 2025-04-11 04:45 | XMS_ITS ---
Author Organization [facility] in [place] Address [address] [place] [address] Care Team Providers Care Publisher Assistant Name Role Phone Reno Pedro Primary Care Provider Allergies No Known Allergies REASON FOR VISIT wellness- work PE Medications Medication SIG (Take, Route, Fr equency, Duration) Notes Start Date End Date Status Adipex-P 37.5 MG 1 tablet before yue kfast Orally Once a day 04/11/2025 Active Social History Tobacco Use: Social History [...] user Modera te cigarette smoker (10-19 cigs/day) Problems Problem Type SNOMED Code ICD Code Onset Dates Problem Status W/U Status Risk Notes Problem Obesity (817437105) Obesity (E66.9) Active confirmed Vital Signs Weight 258.4 lbs 04/11/2025 Height 63 in 04/11/2025 Blood pressure systolic 112 mm Hg 04/11/20 25 Blood pressure diastolic 74 mm Hg 025 BMI 45.77 kg/m2 04/11/2025 Encounters Encounter Location Date Provider Diagnosis [facility] [address] [place] [address] 04/11/2025 Reno Pedro Well adult Z00.00 ; Dysfunctional uterine bleeding N93.8 and Obesity E66.9 Assessments Encounter Date Diagnosis (ICD Code) Assessment Notes Treatment Notes Treatment Clinical Notes Section Notes 04/11/2025 Well adult (ICD-10 - Z00.00) off bipolar meds - and stable 04/11/2025 Dysfunctional uterine bleeding (ICD-10 - N93.8) 04/11/2025 Obesity (ICD-10 - E66.9) Plan Of Treatment Medication Medication Name Sig Start Date Stop Date Notes Adipex-P 37.5 MG 1 tablet before yue kfast Orally Once a day 04/11/2025 Treatment Notes Assessment Notes Well adult off bipolar meds - a nd stable Pending Test Test Name Order Date HEMOGLOBIN A1C (GLYCO) 04/11/2025 IRON, TOTAL 04/11/2025 LIPID PANEL (CHOL/TRIG/HDL/LDL) 04/11/20 25 Insulin Level 04/11/2025 FSH+LH+Prog+E2 04/11/2025 US PELVIS AND TRANSVAG 04/11/2025 THYROID PANEL (T4/TSH/FREE T3) 5 CMP (COMP MET NELSON) w/eGFR CKD-EPI 2024 CBC WITH DIFF 04/11/2025 Progress Notes * Prachi PARKS MDOB:[birth year] (29 yo F)Acc No.[id number]:04/11/2025 Progress Note Patient: Prachi CORONEL Provider: Nathaly Pedro ([facility])MD :1995 A ge:29 Y S ex:Female Date:04/11/2025 Address:[address] [place] [address] Rody PEREZ, [id number] Check In:08:33 AM ESTCheck O ut:09:07 AM EST Subjective: * Chief Complaints: * w ellness- work PE * HPI: G eneral: well adult no issues. * ROS: E ENT: hearing changes d enies. v isual changes d enies.?non-healing mouth sores d enies. s wollen glands or neck lumps d enies. h oarseness d enies. s ore throat d enies. d ifficulty swallowing d enies. n ose bleeds d enies. n walker congestion d enies. e ar ache d enies. e ar discharge?denies. r inging in ears d enies. l ight sensitivity d enies. e ye pain d enies. b lurring d enies. e ye irritation d enies. d ouble vision d enies.?vision loss d enies. G eneral/Constitutional: Sweats: D enies. F atigue d enies. S leep problems d enies. A norexia d enies. M alaise d enies. W eight loss d enies.?Fatigue or Weakness d enies. F ever or Chills d enies. C ardiovascular: Shortness of Breath w/lying flat d enies. L ightheadedness/dizziness d enies. C hest tightness/ heavy pressure d enies. S welling of legs, ankles, or feet d enies. W aking up with shortness of breath d enies. C hest pain denies. P alpitations d enies. W eight gain d enies. R espiratory: Chronic or frequent cough d enies. C oughing up blood?denies. D ifficulty breathing d enies. P roductive cough d enies. S noring?denies. S hortness of breath that awakens from sleep (PND) d enies. C hest pain d enies. S putum production d enies. W heezing d enies. M usculoskeletal: Joint pain d enies. J oint Fluid d enies. B ack pain d enies. K nee pain d enies. N abraham pain d enies. J oint Stiffness d enies. M uscle cramps d enies. W eakness of muscles d enies. A rthritis d enies. M uscle aches d enies. P ain in shoulder(s) d enies. S wollen joints d enies. * Active Problem List N93.8 Dysfunctional uterin e bleeding Modified On:01/06/2024W/U Status:confirmed L91.8 Acquired skin tag Modified On:01/18/2024W/U Status:confirmed M54.12 Cervical radicular p ain Modified On:01/18/2024 Status:confirmed L30.9 Eczema Modified On:01/18/2024 Status:confirmed J01.90 Acute sinusitis Modified On:01/18/2024 Status:confirmed N92.1 Breakthrough bleedin g Modified On:01/18/2024 Status:confirmed R53.83 Fatigue Modified On:01/18/2024 Status:confirmed E66.01 Morbid obesity Modified On:01/18/2024 Status:confirmed Z00.00 Annual physical exam Modified On:01/18/2024 Status:confirmed Z00.00 Well adult Modified On:03/02/2024 Status:confirmed E66.9 Obesity Modified On:04/11/2025 Status:confirmed * Medical History: * Surgical History: C ESAREAN DELIVERY x3 * Hospitalization/Major Diagno stic Procedure: s ee above * Family History: F ather: alive, colon cancer, Hypercholesterolemia, diagnosed with Other malignant neoplasm of unspecified site. M other: alive, Heart Attack, , Hypercholesterolemia. B rother(s): alive. Sister(s): alive. D prashanthhter(s): alive. 1 brother(s) , 1 sister(s) - [...] user M oderate cigarette smoker (10-19 cigs/day) * Medications: D iscontinuedAbilify(ARIPiprazole) 15 MG Tablet 1 tablet Orally Once a day Citalopram Hydrobromide 40 MG Tablet 1 tablet Orally Once a day Medication List reviewed and reconciled with the patientDiscontinued Abilify(ARIPiprazole) 15 MG Tablet 1 tablet Orally Once a day Discontinued Citalopram Hydrobromide 40 MG Tablet 1 tablet Orally Once a day Medication List reviewed and reconciled with the patient * Allergies: N .K.D.A.no[Allergies Verified] Objective: * Vitals: W t:258.4lbs, Ht: 63 in, BP:112/74mm Hg, BMI:45.77Index, Ht-cm: 160.02 cm, Wt-k.21 kg. * Examination: P hysical Exam: GENERAL: w ell developed, well nourished, in no acute distress. HEAD: n ormocephalic/atraumatic. EYES: p upils equal, round and reactive to light, conjunctivae and sclerae normal. EARS: n o deformity or lesion of external ear, canals and TM appear normal bilaterally, TM's intact, not inflamed with normal light reflex, hearing grossly normal to conversational speech. NOSE: n o deformity, discharge, inflammation, or lesions.? MOUTH: m ucous membranes moist, normal oropharynx and posterior pharynx without lesions or exudates, tongue normal, dentition normal. NECK: n abraham supple, no masses or palpable cervical nodes, trachea midline, thyroid without nodules, masses, tenderness, or enlargement. CHEST: n o chest wall deformity, no chest wall tenderness.? LUNGS: n ormal respiratory effort and clear to auscultation, no wheezes, rales, or rhonchi, good air exchange. CARDIO: r egular rate and rhythm, normal S1 and S2, nor murmur, rub, or gallop. PULSES: n ormal capillary refill. ABDOMEN: s oft, non-distended, non-tender, no masses. MUSCULOSKELETAL: n o deformity or scoliosis noted, normal range of motion, joints normal, no erythema, edema, effusion, or ecchymosis. EXTREMITY: n o clubbing, cyanosis, edema, or deformity with normal ROM in both upper and lower bilateral extremities. NEUROLOGIC: g rossly normal. SKIN: n o rashes, ulcerations, or suspicious lesions. LYMPH NODES: n o cervical adenopathy, nodes normal. MENTAL STATUS: a lert and oriented x3, normal mood and affect. Assessment: * Assessment: 1. W ell adult - Z00.00 (Primary) 2 . D ysfunctional uterine bleeding - N93.8 3 . O besity - E66.9 Plan: * Treatment: 2. D ysfunctional uterine bleeding I maging: US PELVIS AND TRANSVAG 3.?Obesity? Start Adipex-P Tablet, 37.5 MG, 1 tablet before breakfast, Orally, Once a day, 30.?? * Procedure Codes: * Preventive Medicine: Screenings/Counseling: B [place] ACTION PLAN Above Normal BMI Follow-up D ietary management education, guidance, and counseling * * Sign off status: Completed Visit Status: C HK (Check Out) true * Provider: Nathaly Pedro ([facility])MD Date: 04/11/2025 Generated for Printi ng/Faxing/eTransmitting on: 04/14/2025 03:48 PM EDT History and Physical Notes * HPI (History of Present Illness) Category Sub-Category Detail Notes Category Not es General well adult no issues Examination Category Sub-Category Detail Notes Category Not es Physical Exam GENERAL: well developed, well nourished, in no acute distress HEAD: normocephalic/atraum atic EYES: pupils equal, round and reactive to light, conjunctivae and sclerae normal EARS: no deformity or lesi on of external ear, canals and TM appear normal bilaterally, TM's intact, not inflamed with normal light reflex, hearing grossly normal to conversational speech NOSE: no deformity, discha rge, inflammation, or lesions MOUTH: mucous membranes florin st, normal oropharynx and posterior pharynx without lesions or exudates, tongue normal, dentition normal NECK: neck supple, no mass es or palpable cervical nodes, trachea midline, thyroid without nodules, masses, tenderness, or enlargement CHEST: no chest wall deform ity, no chest wall tenderness LUNGS: normal respiratory e ffort and clear to auscultation, no wheezes, rales, or rhonchi, good air exchange CARDIO: regular rate and rhy thm, normal S1 and S2, nor murmur, rub, or gallop PULSES: normal capillary ref ill ABDOMEN: soft, non-distended, non-tender, no masses RECTAL: MUSCULOSKELETAL: no deformity or scol iosis noted, normal range of motion, joints normal, no erythema, edema, effusion, or ecchymosis EXTREMITY: no clubbing, cyanosi s, edema, or deformity with normal ROM in both upper and lower bilateral extremities NEUROLOGIC: grossly normal SKIN: no rashes, ulceratio ns, or suspicious lesions LYMPH NODES: no cervical adenopat hy, nodes normal MENTAL STATUS: alert and oriented x 3, normal mood and affect
--- NOTE | 2025-04-14 15:48 | US_ITS ---
The [address] [address] Patient Name: SHADIA PARKS MRN: [id number] date: 1995 Sex: F Assigned Patient Location: Current Patient Location: Accession/Order Number: [id number] Exam Date: 04/14/2025 21:45 Report Date: 04/14/2025 21:48 At the request of: IDALMIS RANGEL MD Procedure: US pelvis transvaginal The pelvic ultrasound transabdominal transvaginal imaging HISTORY: Amenorrhea for 6 months. History of 3 C-sections. History of tubes removed. Uterus anteverted. Uterus measures 8.9 x 4.6 x 5.2 cm. Limited assessment due to patient body habitus. Endometrium has a total combined thickness of 7.5 mm. Right ovary not visualized. The left ovary measures 2.3 x 1.6 x 1.7 cm with resistive index of 0.6. Prominent vessels in the left adnexal region identified. US/US pelvis transvaginal IMPRESSION: Examination secondary patient body habitus. Nonvisualization of the right ovary. Unremarkable left ovary. Anteverted uterus. No uterine lesion. Unremarkable 7.5 mm thick endometrial complex Impression dictated by: Arvin Chisholm M.D. 04/14/2025 9:48 PM Dictation Location: [place] [address] Electronically authenticated by: [id number] Y Date: 04/14/2025 21:48
--- OUTSIDE RECORDS SUMMARY | 2025-04-14 15:48 | XMS_ITS | Encounter Summary ---
Author Organization [facility] Address [address] [place] [address] Care Team Providers Care Seafood Farmer Name Role Phone Chan Pedro MD Primary Care Provider [phone] Encounter Details Date Type Department Care Team (Late st Contact Info) Description 04/06/2023 Abstract [facility] [address] [place] [address] [place] [address] Sunita Edward LPN Social History Tobacco Use Types Packs/Day Years Used Date Smoking Tobacco: Every Day Cigarettes Comments Yes Sex and Gender Information Value Date Recorded Sex Assigned at Not on file Legal Sex Female 7:58 PM EDT Gender Identity Female 11/12/2022 7:58 PM EDT Sexual Orientation Not on file documented as of this encounter Plan of Treatment Not on file documented as of this encounter Visit Diagnoses Not on filedocumented in this encounter Care Teams Seafood Farmer Relationship Specialty Start Date End Date Chan Pedro MD PCP - General Family Medicine 02/11/23 documented as of this encounter
--- OUTSIDE RECORDS SUMMARY | 2025-04-14 15:48 | XMS_ITS | Encounter Summary ---
Author Organization [facility] Address [address] [place] [address] Care Team Providers Care Traffic Operations Manager Name Role Phone Chan Pedro MD Primary Care Provider [phone] Encounter Details Date Type Department Care Team (Late st Contact Info) Description 04/06/2023 External Result Encounter [facility] [address] [facility] [place] [address] Santino Mancini DO [address] [place] [address] Social History Tobacco Use Types Packs/Day Years Used Date Smoking Tobacco: Every Day Cigarettes Comments Yes Sex and Gender Information Value Date Recorded Sex Assigned at Not on file Legal Sex Female 7:58 PM EDT Gender Identity Female 11/12/2022 7:58 PM EDT Sexual Orientation Not on file documented as of this encounter Plan of Treatment Not on file documented as of this encounter Procedures Procedure Name Priority Date/Time Associated Diagnosis Comments US OB 14+ WEEKS ANATOMY SCAN 04/06/2023 1:35 PM EDT documented in this encounter Results * US OB 14+ weeks anatomy scan (04/06/2023 1:35 PM EDT) Anatomical Region Laterality Modality Body Ultrasound 04/06/2023 1:35 PM EDT Narrative 04/06/2023 1:34 PM EDT THIS EXAM WAS PERFORMED AT [facility] REPORT (Signed Final 04/06/2023 13:34) PATIENT INFO: ID #: [id number] : [birth year] (27 yrs)(F) Name: SHADIA CUNNINGHAM Visit Date: 04/06/2023 12:03 STEEL PERFORMED BY: Attending: Peter Tompkins MD Performed By: Sonia Mcduffie RDMS Referred By: Santino Soto. Address: [address] [place] [address] [place] [address] Location: [facility] [place] SERVICE(S) PROVIDED: Comprehensive Anatomic Survey 84206 INDICATIONS: Screening for anatomic survey Z36.89 Obesity in , antepartum O99.210 Prior O34.21 Screening for IUGR Z36.4 Smoking (tobacco) complicating , O99.332 second trimester VITAL SIGNS: Weight (lb): 243 Height: 5'2 BMI: 44.44 EVALUATION: Num Of Fetuses: 1 Heart Rate(bpm): 142 Cardiac Activity: Present appears normal Presentation: Variable Placenta: Posterior, away from cervical os P. Cord Insertion: Eccentric (>2cm from edge) Largest Pocket(cm) 5.53 BIOMETRY: BPD: 55.6 mm G.Age: 23w 0d < 1 % OFD: 78.5 mm HC: 213.8 mm G.Age: 23w 3d < 1 % AC: 199.8 mm G.Age: 24w 4d 13 % FL: 48.9 mm G.Age: 26w 3d 59 % HUM: 43.8 mm G.Age: 26w 0d 54 % CER: 27.6 mm G.Age: 24w 4d 37 % LV: 4.4 mm CM: 6 mm TIB: 44.7 mm G.Age: 27w 3d 87 % CI: 70.8 % 70 - 86 FL/HC: 22.9 % 18.6 - 20.4 HC/AC: 1.07 1.04 - 1.22 FL/BPD: 87.9 % 71 - 87 FL/AC: 24.5 % 20 - 24 Est. FW: 767 gm 1 lb 11 oz 17 % OB HISTORY: : 4 Term: 2 Livin GESTATIONAL AGE: LMP: 25w 5d Date: 10/08/22 ABDIRIZAK: 07/15/23 U/S Today: 24w 3d ABDIRIZAK: 07/24/23 Best: 25w 5d Det. By: LMP (10/08/22) ABDIRIZAK: 07/15/23 TARGETED ANATOMY: Central Nervous System Calvarium/Cranial V.: Appears normal Intracranial Elsa: Appears normal Cavum: Appears normal Parenchyma: Appears normal Lateral Ventricles: Appears normal Choroid Plexus: Appears normal Cereb./Vermis: Appears normal Cisterna Magna: Appears normal Midline Falx: Appears normal Spine Cervical: Not well visualized Thoracic: Not well visualized Lumbar: Not well visualized Sacral: Not well visualized Shape/Curvature: Not well visualized Head/Neck Face: Appears normal Lips: Appears normal Neck: Appears normal Nuchal Fold: Not evaluated d/t GA Nasal Bone: Appears normal Profile: Appears normal Orbits/Eyes: Appears normal Mandible: Appears normal Maxilla: Appears normal Thorax Thoracic Contour: Appears normal Lungs: Appears normal 4 Chamber View: Appears normal Cardiac Activity: Appears normal Cardiac Rhythm: Normal Cardiac Situs: Appears normal Rt Outflow Tract: Appears normal Lt Outflow Tract: Appears normal Aortic Arch: Appears normal Ductal Arch: Appears normal SVC: Appears normal Interventr. Septum: Appears Normal Cardiac Berino: Normal Diaphragm: Appears normal 3 Vessel View: Appears normal 3 V Trachea View: Appears Normal IVC: Appears normal Crossing: Appears normal Abdomen Ventral Wall: Appears normal Cord Insertion: Appears normal Situs: Appears normal Stomach: Appears normal Lt Kidney: Appears normal Rt Kidney: Appears normal Bladder: Appears normal Bowel: Appears normal Extremities Lt Humerus: Appears normal Rt Humerus: Appears normal Lt Forearm: Appears normal Rt Forearm: Appears normal Lt Hand: Appears normal Rt Hand: Appears normal Lt Femur: Appears normal Rt Femur: Appears normal Lt Lower Leg: Appears normal Rt Lower Leg: Appears normal Lt Foot: Appears normal Rt Foot: Appears normal Other Umbilical Cord: Appear normal Masses: None visualized Genitalia: Female CERVIX UTERUS ADNEXA: Cervix Normal appearance by abdominal scan Uterus Gravid uterus Right Ovary Size(cm) 5.42 x 2.94 x 1.66 Vol(ml): 13.85 Visualized Left Ovary Not visualized Cul De Sac No fluid seen Adnexa No adnexal masses identified COMMENTS: 1. Ultrasound is not diagnostic for chromosomal abnormalities, will not detect all structural abnormalities, and is not diagnostic for genetic disorders even if multiple exams are performed during a given . 2. Images of optimal diagnostic quality could not be obtained. 3. anatomic survey is incomplete due to maternal body habitus and position. Peter Tompkins MD Electronically Signed Final Report 04/06/2023 13:34 IMPRESSION: 1. Single intrauterine with size consistent with dates. 2. The HC measures less than the 3rd percentile for the gestational age but reference biometric measurement within 2 SD of the mean. (Dae and yury, 1984) 3. Amniotic fluid volume assessment (DVP) is normal. RECOMMENDATIONS: 1. Please see M consultation documentation from today's encounter. 2. Subsequent follow up or other follow up as clinically determined by primary OB provider unless otherwise specified by [facility]. 3. Results forwarded to ordering provider so they can follow up with the patient as necessary. Procedure Note Radiology, RadiologistMD - 04/06/2023 [facility] (Signed Final 04/06/2023 13:34) PATIENT INFO: ID #: [id number] : [birth year] (27 yrs)(F) Name: SHADIA CUNNINGHAM Visit Date: 04/06/2023 12:03 STEEL PERFORMED BY: Attending: Peter Tompkins MD Performed By: Sonia Mcduffie RDMS Referred By: Santino Loya Address: [address] [place] [address] [address] [place] [place] [address] Location: [facility] [place] SERVICE(S) PROVIDED: Comprehensive Anatomic Survey 80975 INDICATIONS: Screening for anatomic survey Z36.89 Obesity in , antepartum O99.210 Prior O34.21 Screening for IUGR Z36.4 Smoking (tobacco) complicating , O99.332 second trimester VITAL SIGNS: Weight (lb): 243 Height: 5'2 BMI: 44.44 EVALUATION: Num Of Fetuses: 1 Heart Rate(bpm): 142 Cardiac Activity: Present appears normal Presentation: Variable Placenta: Posterior, away from cervical os P. Cord Insertion: Eccentric (>2cm from edge) Largest Pocket(cm) 5.53 BIOMETRY: BPD: 55.6 mm G.Age: 23w 0d < 1 % OFD: 78.5 mm HC: 213.8 mm G.Age: 23w 3d < 1 % AC: 199.8 mm G.Age: 24w 4d 13 % FL: 48.9 mm G.Age: 26w 3d 59 % HUM: 43.8 mm G.Age: 26w 0d 54 % CER: 27.6 mm G.Age: 24w 4d 37 % LV: 4.4 mm CM: 6 mm TIB: 44.7 mm G.Age: 27w 3d 87 % CI: 70.8 % 70 - 86 FL/HC: 22.9 % 18.6 - 20.4 HC/AC: 1.07 1.04 - 1.22 FL/BPD: 87.9 % 71 - 87 FL/AC: 24.5 % 20 - 24 Est. FW: 767 gm 1 lb 11 oz 17 % OB HISTORY: : 4 Term: 2 Livin GESTATIONAL AGE: LMP: 25w 5d Date: 10/08/22 ABDIRIZAK: 07/15/23 U/S Today: 24w 3d ABDIRIZAK: 07/24/23 Best: 25w 5d Det. By: LMP (10/08/22) ABDIRIZAK: 07/15/23 TARGETED ANATOMY: Central Nervous System Calvarium/Cranial V.: Appears normal Intracranial Elsa: Appears normal Cavum: Appears normal Parenchyma: Appears normal Lateral Ventricles: Appears normal Choroid Plexus: Appears normal Cereb./Vermis: Appears normal Cisterna Magna: Appears normal Midline Falx: Appears normal Spine Cervical: Not well visualized Thoracic: Not well visualized Lumbar: Not well visualized Sacral: Not well visualized Shape/Curvature: Not well visualized Head/Neck Face: Appears normal Lips: Appears normal Neck: Appears normal Nuchal Fold: Not evaluated d/t GA Nasal Bone: Appears normal Profile: Appears normal Orbits/Eyes: Appears normal Mandible: Appears normal Maxilla: Appears normal Thorax Thoracic Contour: Appears normal Lungs: Appears normal 4 Chamber View: Appears normal Cardiac Activity: Appears normal Cardiac Rhythm: Normal Cardiac Situs: Appears normal Rt Outflow Tract: Appears normal Lt Outflow Tract: Appears normal Aortic Arch: Appears normal Ductal Arch: Appears normal SVC: Appears normal Interventr. Septum: Appears Normal Cardiac Berino: Normal Diaphragm: Appears normal 3 Vessel View: Appears normal 3 V Trachea View: Appears Normal IVC: Appears normal Crossing: Appears normal Abdomen Ventral Wall: Appears normal Cord Insertion: Appears normal Situs: Appears normal Stomach: Appears normal Lt Kidney: Appears normal Rt Kidney: Appears normal Bladder: Appears normal Bowel: Appears normal Extremities Lt Humerus: Appears normal Rt Humerus: Appears normal Lt Forearm: Appears normal Rt Forearm: Appears normal Lt Hand: Appears normal Rt Hand: Appears normal Lt Femur: Appears normal Rt Femur: Appears normal Lt Lower Leg: Appears normal Rt Lower Leg: Appears normal Lt Foot: Appears normal Rt Foot: Appears normal Other Umbilical Cord: Appear normal Masses: None visualized Genitalia: Female CERVIX UTERUS ADNEXA: Cervix Normal appearance by abdominal scan Uterus Gravid uterus Right Ovary Size(cm) 5.42 x 2.94 x 1.66 Vol(ml): 13.85 Visualized Left Ovary Not visualized Cul De Sac No fluid seen Adnexa No adnexal masses identified COMMENTS: 1. Ultrasound is not diagnostic for chromosomal abnormalities, will not detect all structural abnormalities, and is not diagnostic for genetic disorders even if multiple exams are performed during a given . 2. Images of optimal diagnostic quality could not be obtained. 3. anatomic survey is incomplete due to maternal body habitus and position. Peter Tompkins MD Electronically Signed Final Report 04/06/2023 13:34 IMPRESSION: 1. Single intrauterine with size consistent with dates. 2. The HC measures less than the 3rd percentile for the gestational age but reference biometric measurement within 2 SD of the mean. (Dae and colleagues, 1984) 3. Amniotic fluid volume assessment (DVP) is normal. RECOMMENDATIONS: 1. Please see MFM consultation documentation from today's encounter. 2. Subsequent follow up or other follow up as clinically determined by primary OB provider unless otherwise specified by MFM. 3. Results forwarded to ordering provider so they can follow up with the patient as necessary. us Santino Mancini DO IMG OB US PROCEDURES Final Resul t documented in this encounter Visit Diagnoses Not on filedocumented in this encounter Care Teams Traffic Operations Manager Relationship Specialty Start Date End Date Chan Pedro MD PCP - General Family Medicine 02/11/23 documented as of this encounter
--- OUTSIDE RECORDS SUMMARY | 2025-04-14 15:48 | XMS_ITS | Encounter Summary ---
Author Organization [facility] Address [address] [place] [address] Care Team Providers Care Clinical Social Work Therapist Name Role Phone Chan Pedro MD Primary Care Provider [phone] Encounter Details Date Type Department Care Team (Late st Contact Info) Description 02/18/2023 Abstract [facility] [address] [place] [address] Santino Mancini DO [address] [facility] [place] [address] Social History Tobacco Use Types Packs/Day Years [...] on filedocumented in this encounter Care Teams Clinical Social Work Therapist Relationship Specialty Start Date End Date Chan Pedro MD PCP - General Family Medicine 02/11/23 documented as of this encounter
--- OUTSIDE RECORDS SUMMARY | 2025-04-14 15:48 | XMS_ITS | Encounter Summary ---
Author Organization [facility] Address [address] [place] [address] Care Team Providers Care Oracle Architect Name Role Phone Chan Pedro MD Primary Care Provider [phone] Reason for Visit * Reason Comments Med Refill Encounter Details Date Type Department Care Team (Late st Contact Info) Description 03/08/2025 Refill [facility] [address] [place] [id number] Santino Mancini DO [address] [place], [place] [id number] Nausea and vomiting in ([facility]) Social History Tobacco Use Types Packs/Day Years Used Date Smoking Tobacco: Every Day Cigarettes Comments No Sex and Gender Information Value Date Recorded Sex Assigned at Not on file Legal Sex Female 7:58 PM EDT Gender Identity Female 11/12/2022 7:58 PM EDT Sexual Orientation Not on file documented as of this encounter Plan of Treatment Not on file documented as of this encounter Visit Diagnoses Diagnosis Nausea and vomiting in ([facility]) Unspecified vomiting of , unspecified as to episode of care documented in this encounter Care Teams Oracle Architect Relationship Specialty Start Date End Date Chan Pedro MD PCP - General Family Medicine 02/11/23 documented as of this encounter
--- OUTSIDE RECORDS SUMMARY | 2025-04-14 15:48 | XMS_ITS | Encounter Summary ---
Author Organization [facility] Address [address] [place] [address] Care Team Providers Care Professional Model Name Role Phone Chan Pedro MD Primary Care Provider [phone] Encounter Details Date Type Department Care Team (Late st Contact Info) Description 04/02/2023 Abstract [facility] [address] [place] [address] [place] [address] Sunita Edward LPN Social History Tobacco Use [...] on filedocumented in this encounter Care Teams Professional Model Relationship Specialty Start Date End Date Chan Pedro MD PCP - General Family Medicine 02/11/23 documented as of this encounter
--- OUTSIDE RECORDS SUMMARY | 2025-04-14 15:48 | XMS_ITS | Encounter Summary ---
Author Organization [facility] Address [address] [place] [address] Care Team Providers Care Tile Edger Name Role Phone Chan Pedro MD Primary Care Provider [phone] Encounter Details Date Type Department Care Team (Late st Contact Info) Description 03/12/2023 Clinisync Result Encounter [facility] External Department Unsolicited Santino Howe, DO [address] [place] [address] [place] [address] Social History Tobacco Use Types Packs/Day Years [...] Priority Date/Time Associated Diagnosis Comments US OB CERVICAL LENGTH 03/12/2023 4:02 PM EDT documented in this encounter Results * US OB CERVICAL LENGTH (03/12/2023 4:02 PM EDT) Anatomical Region Laterality Modality Other 03/12/2023 4:02 PM EDT Narrative 02/26/2024 11:00 AM EDT The [address] [address] Ultrasound Report Signed with Mariama Patient: SHADIA PARKS MR#: [id number] : 1995 Acct:[id number] Age/Sex: 27 / F ADM Date: 03/12/23 Loc: US Attending Dr: Santino Howe D.O. Ordering Physician: Santino Howe D.O. Date of Service: 03/12/23 Procedure(s): US OB cervical length Accession Number(s): [id number] cc: Santino Howe D.O.; Chan Pedro M.D. ADDENDUM [place] [id number] Patient Name: SHADIA PARKS MRN: [id number] date: 1995 Sex: F Assigned Patient Location: US Current Patient Location: US Accession/Order Number: [id number] Exam Date: 03/12/2023 10:00 Report Date: 03/20/2023 11:32 At the request of: SANTINO HOWE Procedure: US OB cervical length Begin Addendum #1 The patient provided incorrect clinical gestational age which should have been 22 weeks 1 day at the time of this ultrasound exam: BPD less than 3% HC less than 3% Abdominal circumference 5. 1% Femur length: 24% Estimated weight 2. 9% Findings consistent with intrauterine growth retardation Original Report EXAMINATION: US OB anatomy, US OB cervical length HISTORY: Second Trimester Z34. 92 COMPARISON: No relevant comparison available. TECHNIQUE: Transabdominal sonographic examination was performed for obstetrical and evaluation. FINDINGS: Number: 1 Heart Rate: 145. 9 bpm H. B. /min Amniotic Fluid Volume: Subjectively normal Placental Location: Posterior with lower margin 0. 4 cm from os. Cervix Length: 4. 6 cm; closed. ANATOMY: Normal Structures -cerebellum, choroid plexus, cisterna magna, lateral cerebral ventricles, orbits, midline falx, hard palate, four-chamber heart, RVOT, LVOT, stomach, kidneys, bladder, umbilical cord insertion into abdomen, three-vessel cord, cervical spine, thoracic spine, lumbar spine, sacral spine, right upper extremity, left upper extremity, right lower extremity, left lower extremity. SUBOPTIMALLY SEEN: None ABNORMALITIES: Small amount of free fluid surrounding the heart and septation versus prominent cordae tendineae within left ventricle. BIOMETRY: BPD: 4. 7 cm 20 weeks 1 days ; less than 3% HC: 17. 7 cm 20 weeks 1 days; less than 3% AC: 15. 7 cm 20 weeks 6 days; less than 3% FL: 3. 6 cm 21 weeks 3 days; 5% EFW:391. 4 grams; less than 3% FL/AC: 22. 9 FL/BPD: 77. 0 HC/AC: 1. 1 GESTATIONAL AGE: Age by EDC: 23 weeks 0 days ABDIRIZAK by EDC: 07/09/2023 Age by current US: 20 weeks 5 days ABDIRIZAK by current US: 07/25/2023 Addendum Dictated By: Sal Valentin M.D. Addendum Signed By: <Electronically signed by Sal Valentin M.D.> 02/26/24 1100 Addendum Cosigned By: DD/ TD/TT: / ADDENDUM US/US OB cervical length IMPRESSION: 1. Single live intrauterine with growth detailed above. 2. Estimated weight is less than 3rd percentile. 3. There appears to be small amount of fluid surrounding the heart and questionable prominent cordae tendineae versus septation within the left ventricle. Follow-up recommended. Electronically authenticated by: SAL VALENTIN Date: 03/20/2023 11:32 Addendum Dictated By: Sal Valentin M.D. Addendum Signed By: <Electronically signed by Sal Valentin M.D.> 02/26/24 1100 Addendum Cosigned By: DD/ TD/TT: / [address] [address] Patient Name: SHADIA PARKS MRN: [id number] date: 1995 Sex: F Assigned Patient Location: Current Patient Location: Accession/Order Number: [id number] Exam Date: 03/12/2023 10:00 Report Date: 03/12/2023 16:02 At the request of: SANTINO HOWE Procedure: US OB cervical length EXAMINATION: US OB anatomy, US OB cervical length HISTORY: Second Trimester Z34.92 COMPARISON: No relevant comparison available. TECHNIQUE: Transabdominal sonographic examination was performed for obstetrical and evaluation. FINDINGS: Number: 1 Heart Rate: 145.9 bpm H.B. /min Amniotic Fluid Volume: Subjectively normal Placental Location: Posterior with lower margin 0.4 cm from os. Cervix Length: 4.6 cm; closed. ANATOMY: Normal Structures -cerebellum, choroid plexus, cisterna magna, lateral cerebral ventricles, orbits, midline falx, hard palate, four-chamber heart, RVOT, LVOT, stomach, kidneys, bladder, umbilical cord insertion into abdomen, three-vessel cord, cervical spine, thoracic spine, lumbar spine, sacral spine, right upper extremity, left upper extremity, right lower extremity, left lower extremity. SUBOPTIMALLY SEEN: None ABNORMALITIES: Small amount of free fluid surrounding the heart and septation versus prominent cordae tendineae within left ventricle. BIOMETRY: BPD: 4.7 cm 20 weeks 1 days ; less than 3% HC: 17.7 cm 20 weeks 1 days; less than 3% AC: 15.7 cm 20 weeks 6 days; less than 3% FL: 3.6 cm 21 weeks 3 days; 5% EFW:391.4 grams; less than 3% FL/AC: 22.9 FL/BPD: 77.0 HC/AC: 1.1 GESTATIONAL AGE: Age by EDC: 23 weeks 0 days ABDIRIZAK by EDC: 07/09/2023 Age by current US: 20 weeks 5 days ABDIRIZAK by current US: 07/25/2023 US/US OB cervical length IMPRESSION: 1. Single live intrauterine with growth detailed above. 2. Estimated weight is less than 3rd percentile. 3. There appears to be small amount of fluid surrounding the heart and questionable prominent cordae tendineae versus septation within the left ventricle. Follow-up recommended. Electronically authenticated by: DOMINIC WINKLER Date: 03/12/2023 16:02 Dictated By: Dominic Winkler M.D. Signed By: 03/12/23 1605 DD/ 1602 TD/TT: Senior Linux Unix Engineer: Procedure Note Radiology, Radiologist, - 02/26/2024 [place] [address] Ultrasound Report Signed with Addlorraine Patient: SHADIA PARKS KMR#: [id number] : 1995Acct:[id number] Age/Sex: 27 / FADM Date: 03/12/23 Loc: US Attending Dr: Santino Howe D.O. Ordering Physician: Santino Howe D.O. Date of Service: 03/12/23 Procedure(s): US OB cervical length Accession Number(s): [id number] cc: Santino Howe D.O.; Chan Pedro M.D. ADDENDUM The [place] [id number] Patient Name: SHADIA PARKS MRN: [id number] date: 1995 Sex: F Assigned Patient Location: US Current Patient Location: US Accession/Order Number: [id number] Exam Date: 03/12/2023 10:00 Report Date: 03/20/2023 11:32 At the request of: SANTINO HOWE Procedure: US OB cervical length Begin Addendum #1 The patient provided incorrect clinical gestational age which should havebeen 22 weeks 1 day at the time of this ultrasound exam: BPD less than 3% HC less than 3% Abdominal circumference 5. 1% Femur length: 24% Estimated weight 2. 9% Findings consistent with intrauterine growth retardation Original Report EXAMINATION: US OB anatomy, US OB cervical length HISTORY: Second Trimester Z34. 92 COMPARISON: No relevant comparison available. TECHNIQUE: Transabdominal sonographic examination was performed for obstetrical and evaluation. FINDINGS: Number: 1 Heart Rate: 145. 9 bpm H. B. /min Amniotic Fluid Volume: Subjectively normal Placental Location: Posterior with lower margin 0. 4 cm from os. Cervix Length: 4. 6 cm; closed. ANATOMY: Normal Structures -cerebellum, choroid plexus, cisterna magna, lateral cerebral ventricles, orbits, midline falx, hard palate, four-chamberheart, RVOT, LVOT, stomach, kidneys, bladder, umbilical cord insertion intoabdomen, three-vessel cord, cervical spine, thoracic spine, lumbar spine, sacralspine, right upper extremity, left upper extremity, right lower extremity, leftlower extremity. SUBOPTIMALLY SEEN: None ABNORMALITIES: Small amount of free fluid surrounding the heart andseptation versus prominent cordae tendineae within left ventricle. BIOMETRY: BPD: 4. 7 cm 20 weeks 1 days ; less than 3% HC: 17. 7 cm 20 weeks 1 days; less than 3% AC: 15. 7 cm 20 weeks 6 days; less than 3% FL: 3. 6 cm 21 weeks 3 days; 5% EFW:391. 4 grams; less than 3% FL/AC: 22. 9 FL/BPD: 77. 0 HC/AC: 1. 1 GESTATIONAL AGE: Age by EDC: 23 weeks 0 days ABDIRIZAK by EDC: 07/09/2023 Age by current US: 20 weeks 5 days ABDIRIZAK by current US: 07/25/2023 Addendum Dictated By: Sal Valentin M.D. Addendum Signed By: <Electronically signed by Sal Valentin M.D.> 02/26/24 1100 Addendum Cosigned By: DD/ TD/TT: / ADDENDUM US/US OB cervical length IMPRESSION: 1. Single live intrauterine with growth detailed above. 2. Estimated weight is less than 3rd percentile. 3. There appears to be small amount of fluid surrounding the heart and questionable prominent cordae tendineae versus septation within the left ventricle. Follow-up recommended. Electronically authenticated by: SAL VALENTIN Date: 03/20/2023 11:32 Addendum Dictated By: Sal Valentin M.D. Addendum Signed By: <Electronically signed by Sal Valentin M.D.> 02/26/24 1100 Addendum Cosigned By: DD/ TD/TT: / [address] [address] Patient Name: SHADIA PARKS MRN: [id number] date: 1995 Sex: F Assigned Patient Location: US Current Patient Location: Accession/Order Number: [id number] Exam Date: 03/12/2023 10:00 Report Date: 03/12/2023 16:02 At the request of: SANTINO CARLEY Procedure: US OB cervical length EXAMINATION: US OB anatomy, US OB cervical length HISTORY: Second Trimester Z34.92 COMPARISON: No relevant comparison available. TECHNIQUE: Transabdominal sonographic examination was performed for obstetrical and evaluation. FINDINGS: Number: 1 Heart Rate: 145.9 bpm H.B. /min Amniotic Fluid Volume: Subjectively normal Placental Location: Posterior with lower margin 0.4 cm from os. Cervix Length: 4.6 cm; closed. ANATOMY: Normal Structures -cerebellum, choroid plexus, cisterna magna, lateral cerebral ventricles, orbits, midline falx, hard palate, four-chamberheart, RVOT, LVOT, stomach, kidneys, bladder, umbilical cord insertion intoabdomen, three-vessel cord, cervical spine, thoracic spine, lumbar spine, sacralspine, right upper extremity, left upper extremity, right lower extremity, leftlower extremity. SUBOPTIMALLY SEEN: None ABNORMALITIES: Small amount of free fluid surrounding the heart andseptation versus prominent cordae tendineae within left ventricle. BIOMETRY: BPD: 4.7 cm 20 weeks 1 days ; less than 3% HC: 17.7 cm 20 weeks 1 days; less than 3% AC: 15.7 cm 20 weeks 6 days; less than 3% FL: 3.6 cm 21 weeks 3 days; 5% EFW:391.4 grams; less than 3% FL/AC: 22.9 FL/BPD: 77.0 HC/AC: 1.1 GESTATIONAL AGE: Age by EDC: 23 weeks 0 days ABDIRIZAK by EDC: 07/09/2023 Age by current US: 20 weeks 5 days ABDIRIZAK by current US: 07/25/2023 US/US OB cervical length IMPRESSION: 1. Single live intrauterine with growth detailed above. 2. Estimated weight is less than 3rd percentile. 3. There appears to be small amount of fluid surrounding the heart and questionable prominent cordae tendineae versus septation within the left ventricle. Follow-up recommended. Electronically authenticated by: DOMINIC WINKLER Date: 03/12/2023 16:02 Dictated By: Dominic Winkler M.D. Signed By:03/12/23 1605 DD/ 1602 TD/TT: Senior Linux Unix Engineer: us Santino Howe DO [facility] Final Result documented in this encounter Visit Diagnoses Not on filedocumented in this encounter Care Teams Tile Edger Relationship Specialty Start Date End Date Chan Pedro MD PCP - General Family Medicine 02/11/23 documented as of this encounter
--- OUTSIDE RECORDS SUMMARY | 2025-04-14 15:48 | XMS_ITS | Encounter Summary ---
Author Organization [facility] Address [address] [place] [address] Care Team Providers Care Coil Repair Technician Name Role Phone Chan Pedro MD Primary Care Provider [phone] Encounter Details Date Type Department Care Team (Late st Contact Info) Description 03/17/2023 Abstract [facility] [address] [place] [address] Santino Mancini DO [address] [place] [address] Social History Tobacco Use Types Packs/Day Years [...] on filedocumented in this encounter Care Teams Coil Repair Technician Relationship Specialty Start Date End Date Chan Pedro MD PCP - General Family Medicine 02/11/23 documented as of this encounter
--- OUTSIDE RECORDS SUMMARY | 2025-04-14 15:48 | XMS_ITS | Encounter Summary ---
Author Organization [facility] tem Address [id number] [address] [place] [address] Care Team Providers Care Pre School Teacher Name Role Phone Chan Pedro MD Primary Care Provider [phone] Encounter Details Date Type Department Care Team (Late st Contact Info) Description 02/05/2021 Orders Only Maternal- Medicine at [facility] [address] [place] [address] External, Scanning Provider Social History Tobacco Use Types Packs/Day Years Used Date Smoking Tobacco: Never Assessed Alcohol Use Standard Drinks/Week Comments Not Currently 0 (1 standard drink = 0.6 oz pur e alcohol) Childcare Answer Date Recorded Childcare Unknown 07/20/2019 Employment Answer Date Recorded Employment Unknown 07/20/2019 Purpose - Life Answer Date Recorded Purpose and direction in life Unknown Comments Yes Sex and Gender Information Value Date Recorded Sex Assigned at Female 04/03/2023 12:13 PM EDT Legal Sex Female 2:47 PM EST Gender Identity Female 04/03/2023 12:13 PM EDT Sexual Orientation Straight 04/03/2023 12 :13 PM EDT COVID-19 Exposure Response Date Recorded In the last month, have you been in contact with someone who was confirmed or suspected to have Coronavirus / COVID-19? No / Unsure 02/08/2021 7:05 AM EDT documented as of this encounter Plan of Treatment Not on file documented as of this encounter Procedures Procedure Name Priority Date/Time Associated Diagnosis Comments US PREG LMTD 1 OR MORE FETUS Routine 01/30/2021 CREATININE, URINE, 24 HOUR Routine 12/24/2020 PROTEIN, URINE, 24 HOUR Routine 12/24/2020 US PREG LMTD 1 OR MORE FETUS Routine 11/26/2020 HCG-BETA, SERUM Routine 11/19/2020 documented in this encounter Results * Ultrasound limited 1 or more fetus (01/30/2021) Anatomical Region Laterality Modality OB-MEDICAL PARASITOLOGIST Ultrasound Narrative 01/30/2021 see attached report us Scanning Provider External IMG US ORDERABLES Harish ariana Result - Final * Protein, urine, 24 hour (12/24/2020) Urine protein 12.2 MANUAL LY TRANSCRIBED RESULTS Comment:see attached report Urine volume 975 MANUALL Y TRANSCRIBED RESULTS Comment:see attached report Total Protein, urine, 24 hour 118.9 MANUALLY TRANSCRIBED RESULTS Comment:see attached report us Scanning Provider External URINE ORDERABLES Edit ed Result - Final Performing Organization Address [facility] Co de Phone Number MANUALLY TRANSCRIBED RESULTS * Creatinine, urine, 24 hour (12/24/2020) Urine creatinine 125.03 MANUALLY TRANSCRIBED RESULTS Comment:see attached report Creatinine 0.58 mg/dL MANUALLY TRANSCRIBED RESULTS Comment:see attached report Urine volume 975 MANUALL Y TRANSCRIBED RESULTS Comment:see attached report Creatinine, 24H Ur 1,219.04 MANUALLY TRANSCRIBED RESULTS Comment:see attached report Creatinine Clearance 133.60 mL/min MANUALLY TRANSCRIBED RESULTS Comment:see attached report us Scanning Provider External URINE ORDERABLES Edit ed Result - Final Performing Organization Address [facility] Co de Phone Number MANUALLY TRANSCRIBED RESULTS * Ultrasound limited 1 or more fetus (11/26/2020) Anatomical Region Laterality Modality OB-MEDICAL PARASITOLOGIST Ultrasound Narrative 11/26/2020 see attached report us Scanning Provider External IMG US ORDERABLES Harish ariana Result - Final * hCG, quantitative, (11/19/2020) Hcg-beta, serum 121,905 MANUALLY TRANSCRIBED RESULTS Comment:see attached report us Scanning Provider External LAB BLOOD ORDERABLES Edited Result - Final MANUALLY TRANSCRIBED RESULTS documented in this encounter Visit Diagnoses Not on filedocumented in this encounter Care Teams Pre School Teacher Relationship Specialty Start Date End Date Chan Pedro MD PCP - General Family Medicine 02/08/21 documented as of this encounter
--- OUTSIDE RECORDS SUMMARY | 2025-04-14 15:48 | XMS_ITS | Patient Health Record ---
Author Organization [facility] [place] Address [address] [place] [address] Care Team Providers Care Asphalt Distributor Operator Name Role Phone Reno Pedro Primary Care Provider Allergies No Known Allergies Reason For Referral No Information Medications Medication SIG (Take, Route, Fr equency, [...] Problem Status W/U Status Risk Notes Problem Fatigue (77878436) Fatigue (R53.83) Active confirmed Problem Morbid obesity (434293539) Morbid obesity (E66.01) Active confirmed Problem Obesity (921278223) Obesity (E66.9) Active confirmed Problem Eczema (18263819) Eczema (L30.9) Active confirm ed Problem Acute sinusitis (11015521) Acute sinusitis (J01.90) Active confirmed Problem Annual health maintenance examination (81331793) Annual physical exam (Z00.00) Active confirmed Problem Well adult (172876923) Well adult (Z00.00) Active confirmed Problem Cervical radiculopathy (88814923) Cervical radicular pain (M54.12) Active confirmed Problem Dysfunctional uterine bleeding (73954595296688) Dysfunctional uterine bleeding (N93.8) Active confirmed Problem Breakthrough bleeding (18971300) Breakthrough bleeding (N92.1) Active confirmed Problem Skin tag (033264583) Acquired skin tag (L91.8) Active confirmed Vital Signs Blood pressure diastolic 74 mm Hg 04/11/2025 Height 63 in 04/11/2025 Blood pressure systolic 112 mm Hg 04/11/2025 Weight 258.4 lbs 04/11/2025 BMI 45.77 kg/m2 04/11/2025 Encounters Encounter Location Date Provider Diagnosis [facility] [address] [place] [address] 04/11/2025 Reno Pedro Well adult Z00.00 ; Dysfunctional uterine bleeding N93.8 and Obesity E66.9 Assessments Encounter Date Diagnosis (ICD Code) Assessment Notes Treatment Notes Treatment Clinical Notes Section Notes 04/11/2025 Well adult (ICD-10 - Z00.00) off bipolar meds - and stable 04/11/2025 Dysfunctional uterine bleeding (ICD-10 - N93.8) 04/11/2025 Obesity (ICD-10 - E66.9) Plan Of Treatment Pending Test Test Name Order Date HEMOGLOBIN A1C (GLYCO) 04/11/2025 IRON, TOTAL 04/11/2025 LIPID PANEL (CHOL/TRIG/HDL/LDL) 04/11/20 25 Insulin Level 04/11/2025 FSH+LH+Prog+E2 04/11/2025 CBC AUTO DIFF 03/02/2024 FERRITIN 03/02/2024 GLYCOHEMOGLOBIN A1C 03/02/2024 IRON 03/02/2024 LIPID PROFILE 03/02/2024 PROF 14(COMP METB) 03/02/2024 THYROID PROFILE WITH TSH 03/02/2024 US PELVIS AND TRANSVAG 04/11/2025 THYROID PANEL (T4/TSH/FREE T3) CMP (COMP MET NELSON) w/eGFR CKD-EPI 2024 CBC WITH DIFF 04/11/2025 Insurance Providers Payer Name Payer Address Payer Phone Subscriber Number Group Number Insured Name Patient Relationship to Insured Coverage Start Date Coverage End Date [employer] [place] [employer] [address] [address] [place] [address] [id number] Prachi Lock Self - patient is the insured Medical (General) History Medical History History ICD Code Cervical radiculopathy M54.12 Eczema L30.9 Dysfunctional uterine bleeding N93.8 Surgical History Surgery Date(Month/Year) DELIVERY x3 Hospitalization History Reason Date(Month/Year) see above
--- OUTSIDE RECORDS SUMMARY | 2025-04-14 15:48 | XMS_ITS | Clinical Summary ---
Author Organization [facility] [employer] Address [id number] [address] [place] [address] Care Team Providers Care Vp Security Name Role Phone Chan Pedro MD Primary Care Provider [phone] Allergies No known active allergies Medications ondansetron (ZOFRAN) 4 mg tablet Take 1 tablet (4 mg total) by mouth every 8 (eight) hours as needed for nausea or vomiting. Active Active Problems Problem Noted Date Diagnosed Date Tobacco use in Bipolar disease during Obesity affecting with history of section, ante Family History Medical History Relation Name Comments Cancer Father Heart disease Father Stent Placemen t Heart attack Mother Thyroid Issues Mother Heart disease Paternal Aunt Heart disease Paternal Grandfather Relation Name Status Comments Father Alive Mother Alive Paternal Aunt Alive Paternal Grandfather Social History Tobacco Use Types Packs/Day Years Used Date Smoking Tobacco: Every Day Cigarettes Smokeless Tobacco: Never Tobacco Cessation:Ready to Q uit: Not Asked; Counseling Given: Not Answered Alcohol Use Standard Drinks/Week Comments Yes 0 (1 standard drink = 0.6 oz pur e alcohol) Socially Childcare Answer Date Recorded Childcare Unknown 07/20/2019 Employment Answer Date Recorded Employment Unknown 07/20/2019 Hunger Screening Answer Date Recorded Within the past 12 months we worried whether our food would run out before we got money to buy more. Never True 09/11/2023 Food Insecurity - Inability Not on file 08/31 Purpose - Life Answer Date Recorded Purpose and direction in life Unknown Comments No Sex and Gender Information Value Date Recorded Sex Assigned at Female 04/03/2023 12:13 PM EDT Legal Sex Female 2:47 PM EST Gender Identity Female 04/03/2023 12:13 PM EDT Sexual Orientation Straight 04/03/2023 12 :13 PM EDT Last Filed Vital Signs Vital Sign Reading Time Taken Comments Blood Pressure 134/77 09/11/2023 10:44 AM EST Pulse 62 09/11/2023 10:44 AM EST Temperature - - Respiratory Rate - - Oxygen Saturation - - Inhaled Oxygen Concentration - - Weight 100.8 kg (222 lb 3.2 oz) 024 10:44 AM EST Height 157.5 cm (5' 2 ) 09/11/2023 10:4 4 AM EST Body Mass Index 40.64 09/11/2023 10:44 AM EST Plan of Treatment Health Maintenance Due Date Last Done Comments Depression Screening 2007 Pap Smear 2016 Adult BMI Screening 09/11/2024 09/11/2023 Tobacco Screening 09/11/2024 09/11/2023 Influenza Vaccine 05/01/2025 07/05/2009 DTaP,Tdap and Td Vaccines (8 - Td or Tdap) 12/22/2026 12/22/2016, 03/22/2007, 05/15/2000, Additional history exists Medical Devices Not on file Insurance [employer] Care Teams Vp Security Relationship Specialty Start Date End Date Chan Pedro MD PCP - General Family Medicine 02/08/21
--- OUTSIDE RECORDS SUMMARY | 2025-04-14 15:48 | XMS_ITS | Encounter Summary ---
Author Organization [facility] Address [address] [place] [address] Care Team Providers Care Dinner Cook Name Role Phone Chan Pedro MD Primary Care Provider [phone] Encounter Details Date Type Department Care Team (Late st Contact Info) Description 02/12/2023 Abstract [facility] [address] [place] [address] Kristal Pearson PA [address] [place] [address] Social History Tobacco Use Types Packs/Day Years Used Date Smoking Tobacco: Every Day Cigarettes Tobacco Cessation:Ready to Q uit: Not Asked; Counseling Given: Not Answered Comments Yes Sex and Gender Information Value Date Recorded Sex Assigned at Not on file Legal Sex Female 7:58 PM EDT Gender Identity Female 11/12/2022 7:58 PM EDT Sexual Orientation Not on file documented as of this encounter Plan of Treatment Not on file documented as of this encounter Visit Diagnoses Not on filedocumented in this encounter Care Teams Dinner Cook Relationship Specialty Start Date End Date Chan Pedro MD PCP - General Family Medicine 02/11/23 documented as of this encounter
--- OUTSIDE RECORDS SUMMARY | 2025-04-14 15:48 | XMS_ITS | Encounter Summary ---
Author Organization [facility] Address [address] [place] [address] Care Team Providers Care Pigment Supplier Name Role Phone Chan Pedro MD Primary Care Provider [phone] Encounter Details Date Type Department Care Team (Late st Contact Info) Description 06/26/2023 Clinisync Result Encounter [facility] External Department Unsolicited Santino Howe, DO [address] [place] [address] [place] [address] Social History Tobacco Use Types Packs/Day Years [...] Priority Date/Time Associated Diagnosis Comments US OB GROWTH 06/26/2023 3:08 PM EDT documented in this encounter Results * US OB GROWTH (06/26/2023 3:08 PM EDT) Anatomical Region Laterality Modality Other 06/26/2023 3:08 PM EDT Narrative 06/26/2023 3:08 PM EDT The [address] [address] Ultrasound Report Signed Patient: SHADIA PARKS Omer Grullon MR#: [id number] : 1995 Acct:[id number] Age/Sex: 27 / F ADM Date: 06/26/23 Loc: US Attending Dr: Santino Howe D.O. Ordering Physician: Santino Howe D.O. Date of Service: 06/26/23 Procedure(s): US OB growth Accession Number(s): [id number] cc: Santino Howe D.O.; Chan Pedro M.D. [place] [address] Patient Name: SHADIA PARKS MRN: [id number] date: 1995 Sex: F Assigned Patient Location: Current Patient Location: Accession/Order Number: [id number] Exam Date: 06/26/2023 10:15 Report Date: 06/26/2023 15:08 At the request of: SANTINO HOWE Procedure: US OB growth EXAMINATION: US OB growth HISTORY: LGA COMPARISON: Ultrasound OB anatomy 03/12/2023 FINDINGS: Heart Rate: 137.0 bpm Number: 1.0 Position: CEPHALIC Amniotic Fluid Volume: 13.6 cm Maximum Vertical Pocket: 4.3 cm BIOMETRY: BPD: 8.3 cm cm; 33 weeks 2 days; <3% HC: 31.2 cmcm; 34 weeks 6 days ; < 3% AC: 32.5 cm cm; 36 weeks 3 days; 40% FL: 7.2 cm cm; 36 weeks 4 days; 33% EFW: 2809.5 grams; 24% FL/AC: 22.0 FL/BPD: 86.6 HC/AC: 1.0 GESTATIONAL AGE: Age by EDC: 37 weeks 2 days ABDIRIZAK by EDC: 07/15/2023 Age by US: 35 weeks 2 days ABDIRIZAK by US: 07/29/2023 US/US OB growth IMPRESSION: 1. Single live intrauterine with growth detailed above. 2. Biparietal diameter and head circumference are both < 3rd percentile. Electronically authenticated by: DOMINIC WINKLER Date: 06/26/2023 15:08 Dictated By: Dominic Winkler M.D. Signed By: 06/26/23 1511 DD/ 1508 TD/TT: Public Transit Trolley Driver: Procedure Note Radiology, Radiologist, - 06/26/2023 [place] [address] Ultrasound Report Signed Patient: SHADIA PARKS KMR#: [id number] : 1995Acct:[id number] Age/Sex: FADM Date: 06/26/23 Loc: US Attending Dr: Santino Howe D.O. Ordering Physician: Santino Howe D.O. Date of Service: 06/26/23 Procedure(s): US OB growth Accession Number(s): [id number] cc: Santino Howe D.O.; Chan Pedro M.D. The [place] [address] Patient Name: SHADIA PARKS MRN: [facility]:[id number] date: 1995 Sex: F Assigned Patient Location: US Current Patient Location: US Accession/Order Number: [id number] Exam Date: 06/26/2023 10:15 Report Date: 06/26/2023 15:08 At the request of: SANTINO HOWE Procedure: US OB growth EXAMINATION: US OB growth HISTORY: LGA COMPARISON: Ultrasound OB anatomy 03/12/2023 FINDINGS: Heart Rate: 137.0 bpm Number: 1.0 Position: CEPHALIC Amniotic Fluid Volume: 13.6 cm Maximum Vertical Pocket: 4.3 cm BIOMETRY: BPD: 8.3 cm cm; 33 weeks 2 days; <3% HC: 31.2 cmcm; 34 weeks 6 days ; < 3% AC: 32.5 cm cm; 36 weeks 3 days; 40% FL: 7.2 cm cm; 36 weeks 4 days; 33% EFW: 2809.5 grams; 24% FL/AC: 22.0 FL/BPD: 86.6 HC/AC: 1.0 GESTATIONAL AGE: Age by EDC: 37 weeks 2 days ABDIRIZAK by EDC: 07/15/2023 Age by US: 35 weeks 2 days ABDIRIZAK by US: 07/29/2023 US/US OB growth IMPRESSION: 1. Single live intrauterine with growth detailed above. 2. Biparietal diameter and head circumference are both < 3rd percentile. Electronically authenticated by: DOMINIC WINKLER Date: 06/26/2023 15:08 Dictated By: Dominic Winkler M.D. Signed By:06/26/23 1511 DD/ 1508 TD/TT: Public Transit Trolley Driver: us Santino Live DO [facility] Final Result documented in this encounter Visit Diagnoses Not on filedocumented in this encounter Care Teams Pigment Supplier Relationship Specialty Start Date End Date Chan Pedro MD PCP - General Family Medicine 02/11/23 documented as of this encounter
--- OUTSIDE RECORDS SUMMARY | 2025-04-14 15:48 | XMS_ITS | Clinical Summary ---
Author Organization [facility] Address [address] [place] [address] Care Team Providers Care Electrical Wirer Name Role Phone Chan Pedro MD Primary Care Provider [phone] Allergies No known active allergies Medications citalopram (CeleXA) 20 MG tablet Take 20 mg by mouth in the morning. 3 Active ondansetron ODT (Zofran-ODT) 4 MG disintegrating tabletIndications:N ausea and vomiting in ([facility]) DISSOLVE 1 (ONE) TABLET BY MOUTH ON THE TONGUE EVERY 8 HOURS NEEDED FOR NAUSEA AND VOMITING 20 tablet 3 4 Active citalopram (CeleXA) 40 MG tabletIndications:D epression, unspecified depression type TAKE 1 TABLET BY MOUTH IN THE MORNING 30 tablet 3 4 Active Encounters Date Type Department Care Team Description 03/08/2025 Refill [facility] [address] [place] [address] [place] [id number] Santino Mancini DO Nausea and vomiting in ([facility]) from Last 3 Months Family History Medical History Relation Name Comments Cancer Father Heart disease Father stents Heart disease Father's Sister Heart disease Mother Thyroid disease Mother Autism Other Diabetes Other Sickle cell anemia Other Relation Name Status Comments Father Father's Sister Mother Other Social History Tobacco Use Types Packs/Day Years Used Date Smoking Tobacco: Every Day Cigarettes Tobacco Cessation:Ready to Q uit: Not Asked; Counseling Given: Not Answered Comments No Sex and Gender Information Value Date Recorded Sex Assigned at Not on file Legal Sex Female 7:58 PM EDT Gender Identity Female 11/12/2022 7:58 PM EDT Sexual Orientation Not on file Last Filed Vital Signs Vital Sign Reading Time Taken Comments Blood Pressure 120/80 08/17/2023 11:00 AM EST Pulse - - Temperature - - Respiratory Rate - - Oxygen Saturation - - Inhaled Oxygen Concentration - - Weight 99.5 kg (219 lb 6.4 oz) 08/17/2023 11:00 AM EST Height 157.5 cm (5' 2 ) 07/27/2023 10:12 AM EST Body Mass Index 40.13 07/27/2023 10:12 AM EST Plan of Treatment Not on file Insurance [employer] MEDICAID [place] Care Teams Electrical Wirer Relationship Specialty Start Date End Date Chan Pedro MD PCP - General Family Medicine 02/11/23
--- OUTSIDE RECORDS SUMMARY | 2025-04-14 15:49 | XMS_ITS | Encounter Summary ---
Author Organization [facility] Address [address] [place] [address] Care Team Providers Care Document Analyst Name Role Phone Chan Pedro MD Primary Care Provider [phone] Encounter Details Date Type Department Care Team (Late st Contact Info) Description 06/11/2023 Clinisync Result Encounter [facility] External Department Unsolicited Santino Howe, DO [address] [place] [address] [place] [address] Social History Tobacco Use Types Packs/Day Years [...] Priority Date/Time Associated Diagnosis Comments US OB FOLLOW UP 06/11/2023 5:12 PM EDT documented in this encounter Results * US OB FOLLOW UP (06/11/2023 5:12 PM EDT) Anatomical Region Laterality Modality Radiographic Divya ging 06/11/2023 5:12 PM EDT Narrative 06/11/2023 5:12 PM EDT The [address] [address] Ultrasound Report Signed Patient: SHADIA PARKS MR#: [id number] : 1995 Acct:[id number] Age/Sex: 27 / F ADM Date: 06/11/23 Loc: US Attending Dr: Santino Howe D.O. Ordering Physician: Santino Howe D.O. Date of Service: 06/11/23 Procedure(s): US OB follow up Accession Number(s): [id number] cc: Santino Howe D.O.; Chan Pedro M.D. The [place] [address] Patient Name: SHADIA PARKS MRN: [id number] date: 1995 Sex: F Assigned Patient Location: US Current Patient Location: US Accession/Order Number: [id number] Exam Date: 06/11/2023 10:30 Report Date: 06/11/2023 17:12 At the request of: SANTINO HOWE Procedure: US OB follow up EXAMINATION: US OB follow up HISTORY: FOLLOW UP FOR FLUID AROUND HEART COMPARISON: Ultrasound OB anatomy 03/12/2023 FINDINGS: Presentation: Cephalic Heart rate: 146 bpm Anatomy: Inadequate evaluation of heart due to position. No appreciable free fluid around the heart. GA: 35 weeks 1 day ABDIRIZAK: 07/15/2023 US/US OB follow up IMPRESSION: 1. Single live intrauterine . 2. Inadequate evaluation of the heart. Additional follow-up recommended. Electronically authenticated by: DOMINIC WINKLER Date: 06/11/2023 17:12 Dictated By: Dominic Winkler M.D. Signed By: 06/11/231713 DD/ 11 TD/TT: Technology Applications Engineer: Procedure Note Radiology, Radiologist, MD - 06/11/2023 [place] [address] Ultrasound Report Signed Patient: SHADIA PARKS KMR#: [id number] : 1995Acct:[id number] Age/Sex: 27 / FADM Date: 06/11/23 Loc: US Attending Dr: Santino Howe D.O. Ordering Physician: Santino Howe D.O. Date of Service: 06/11/23 Procedure(s): US OB follow up Accession Number(s): [id number] cc: Santino Howe D.O.; Chan Pedro M.D. [place] [address] Patient Name: SHADIA PARKS MRN: [facility]:[id number] date: 1995 Sex: F Assigned Patient Location: US Current Patient Location: US Accession/Order Number: [id number] Exam Date: 06/11/2023 10:30 Report Date: 06/11/2023 17:12 At the request of: SANTINO HOWE Procedure: US OB follow up EXAMINATION: US OB follow up HISTORY: FOLLOW UP FOR FLUID AROUND HEART COMPARISON: Ultrasound OB anatomy 03/12/2023 FINDINGS: Presentation: Cephalic Heart rate: 146 bpm Anatomy: Inadequate evaluation of heart due to position. Noappreciable free fluid around the heart. GA: 35 weeks 1 day ABDIRIZAK: 07/15/2023 US/US OB follow up IMPRESSION: 1. Single live intrauterine . 2. Inadequate evaluation of the heart. Additional follow-uprecommended. Electronically authenticated by: DOMINIC WINKLER Date: 06/11/2023 17:12 Dictated By: Dominic Winkler M.D. Signed By:06/11/231713 DD/ 11 TD/TT: Technology Applications Engineer: Santino Howe DO IMG XR PROCEDURES Final Result documented in this encounter Visit Diagnoses Not on filedocumented in this encounter Care Teams Document Analyst Relationship Specialty Start Date End Date Chan Pedro MD PCP - General Family Medicine 02/11/23 documented as of this encounter
--- OUTSIDE RECORDS SUMMARY | 2025-04-14 15:52 | XMS_ITS | CCD ---
Author Organization [facility] Care Team Providers Care Manager Library Name Role Phone CLAIRE ., DR RAYGOZA Admitting Unavailable HOY ., DR RAYGOZA Attending Unavailable HOY ., DR RAYGOZA Primary Care Unavailable HOY ., DR RAYGOZA Consulting Unavailable CARLEY ., DR QUARLES Admitting Unavailable CARLEY ., DR QUARLES Attending Unavailable HOY ., DR RAYGOZA Primary Care Unavailable CARLEY ., DR QUARLES Consulting Unavailable ZIEBER, DR MELVIN Santamaria Consulting Unavailable REQUEST, DR RON LISTED Consulting Unavaila ble CLAIRE ., DR RAYGOZA Primary Care Unavailable SOLOMON ., KIZZY Admitting Unavailable SOLOMON ., KIZZY Attending Unavailable SOLOMON ., KIZZY Consulting Unavailable LORRAINEY ., DR RAYGOZA Admitting Unavailable HOY ., DR RAYGOZA Attending Unavailable HOY ., DR RAYGOZA Primary Care Unavailable CARLEY ., DR QUARLES Admitting Unavailable CARLEY ., DR QUARLES Attending Unavailable HOY ., DR RAYGOZA Primary Care Unavailable CARLEY ., DR QUARLES Consulting Unavailable DISHA SANCHEZ Attending Unavailable DISHA SANCHEZ Attending Unavailable HOLLY CORTEZ Attending Unavailable IDALMIS PEDRO Referring Unavailable IDALMIS PEDRO Primary Care Unavailable DO Marvin Cutler Emergency Provider [phone] MD Idalmis Pedro Primary Care Provider SIMONA Harris Emergency Provider MD Meng Ross Admit Provider MD Meng Ross Attending Provider [phone] Idalmis Pedro Primary Care Unavailable Mickey Grayson Attending Unavailable Meng Ross Admitting Unavailab Idalmis Mclean Primary Care Unavailable Marvin Cutler Admitting Unavailable Marvin Cutler Attending Unavailable Meng Ross Admitting Unavailab Meng Anderson Attending Unavailab Idalmis Mclean Primary Care Unavailable DISHA SANCHEZ Attending Unavailable DISHA SANCHEZ Attending Unavailable DISHA SANCHEZ Attending Unavailable Idalmis Pedro MD Primary Care Provider Medications Current Medications Medication Drug Class(es) Dates Sig (Normalized) Sig (Original) citalopram 40 mg oral tablet (3 sources) Serotonin Reuptake Inhibitor Start: 01-04-2024 take 40 mg by mouth once daily Citalopram Active 40 MG PO Daily January 04, 2024 12:00am Start: 08-17-2023 End: 11-15-2023 take 1 tablet by mouth in the morning citalopram (CeleXA) 40 mg tablet Take 1 tablet (40 mg total) by mouth in the morning. 0 08/17/2023 11/15/2023 Active ondansetron 4 mg oral tablet (1 source) Serotonin-3 Receptor Antagonist take 1 tablet by mouth every eight hours as needed for nausea and vomiting ondansetron (ZOFRAN) 4 mg tablet Take 1 tablet (4 mg total) by mouth every 8 (eight) hours as needed for nausea or vomiting. 0 Active Completed/Discontinued Medications Medication Drug Class(es) Dates Sig (Normalized) Sig (Original) aspirin 81 mg delayed release oral tablet (1 source) Platelet Aggregation Inhibitor, Nonsteroidal Anti-inflammatory Drug Start: 01-25-2021 End: 09-11-2023 take 1 tablet by mouth in the morning aspirin 81 mg Take 1 tablet (81 mg total) by mouth in the morning. 0 01/25/2021 09/11/2023 Discontinued (Discontinued by another clinician) nicotine 2 mg chewing gum (2 sources) Cholinergic Nicotinic Agonist Start: 08-16-2021 End: 01-03-2024 Nicotine (Polacrilex) Discontinued 2 MG BUCCAL Q2H 60 August 16, 2021 1:00am January 03, 2024 11:34pm polysaccharide iron complex 391 mg oral capsule (2 sources) Start: 08-13-2021 End: 01-03-2024 take 1 capsule by mouth once daily Polysaccharide Iron Complex (Pro Fe) 180 mg iron capsule Discontinued 180 MG PO Daily August 13, 2021 1:00am January 03, 2024 11:34pm 25/iron/folate 6/dha (PRENA1 ORAL) (1 source) End: 09-11-2023 25/iron/folate 6/dha (PRENA1 ORAL) Take 1 tablet by mouth. 0 09/11/2023 Discontinued (Patient Stopped On Own) promethazine hydrochloride 25 mg oral tablet (1 source) Phenothiazine Start: 11-15-2020 End: 09-11-2023 take 1 tablet by mouth every six hours as needed promethazine (PHENERGAN) 25 mg tablet Take 1 tablet (25 mg total) by mouth every 6 (six) hours as needed. 0 11/15/2020 09/11/2023 Discontinued (Patient Stopped On Own) sertraline 100 mg oral tablet (5 sources) Serotonin Reuptake Inhibitor Start: 08-16-2021 End: 01-03-2024 take 100 mg by mouth once daily Sertraline Discontinued 100 MG PO Daily August 16, 2021 1:00am January 03, 2024 11:34pm Start: 08-13-2021 End: 08-16-2021 take 50 mg by mouth once daily Sertraline Discontinued 50 MG PO Daily August 13, 2021 1:00am August 16, 2021 1:41pm Start: 01-25-2021 End: 09-11-2023 take 1 tablet by mouth in the morning sertraline (ZOLOFT) 25 mg tablet Take 1 tablet (25 mg total) by mouth in the morning. 0 01/25/2021 09/11/2023 Discontinued (Patient Stopped On Own) Problems Active Problems Problem Classification Problem Date Documented Da te Episodic/Chronic Hemorrhoids (5 sources) Unspecified hemorrhoids; Translations: [Residual hemorrhoidal skin tags] Onset: 09-11-2023 09-11-2023 Episodic Menstrual disorders (9 sources) Irregular menstruation, unspecified; Translations: [Amenorrhea, unspecified] Onset: 11-07-2022 Chronic Miscellaneous mental health disorders (3 sources) depression; Translations: [ depression] Onset: 01-09-2024 01-04-2024 Episodic Mood disorders (3 sources) Major depressive disorder; Translations: [Major depressive disorder, single episode, unspecified] Onset: 01-09-2024 08-12-2023 Chronic Other complications of (1 source) Maternal obesity complicating , childbirth and the puerperium, antepartum; Translations: [Obesity complicating , unspecified trimester] 02-08-2021 Chronic Other complications of (1 source) Other specified related conditions, first trimester; Translations: [OTH SPEC PREG RELATED COND 1ST TRI] Onset: 12-05-2022 Episodic Other gastrointestinal disorders (4 sources) Constipation, unspecified; Translations: [CONSTIPATION UNSPECIFIED] Onset: 12-04-2022 Episodic Other nutritional; endocrine; and metabolic disorders (1 source) Body mass index (BMI) 40.0-44.9, adult; Translations: [Body mass index (BMI) 40.0-44.9, adult] Onset: 09-11-2023 Chronic Other nutritional; endocrine; and metabolic disorders (1 source) Body mass index 40+ - severely obese; Translations: [Body mass index (BMI) 40.0-44.9, adult] 09-11-2023 Chronic Other and delivery including normal (4 sources) Encounter for supervision of other normal , first trimester; Translations: [ENC SUPV OTH NORMAL PREG FIRST TRI] Onset: 12-16-2022 Episodic Residual codes; unclassified (1 source) 9 weeks gestation of ; Translations: [9 WEEKS GESTATION OF ] Onset: 12-05-2022 Episodic Spondylosis; intervertebral disc disorders; other back problems (1 source) Radiculopathy, cervical region; Translations: [RADICULOPATHY CERVICAL REGION] Onset: 11-11-2022 Episodic Past or Other Problems Problem Classification Problem Date Documented Da te Episodic/Chronic Other complications of (1 source) Maternal tobacco use in ; Translations: [Smoking (tobacco) complicating , unspecified trimester] 02-08-2021 Episodic Other complications of (1 source) Bipolar disorder; Translations: [Other mental disorders complicating , unspecified trimester] 02-08-2021 Episodic Previous (1 source) ; Translations: [Maternal care for unspecified type scar from previous delivery] 06-11-2021 Episodic Results Test Name Value Interpretation Reference Range Facility ECG 12 lead ECGon 01-09-2024 ECG 12 lead ECG [facility] [place] [address] [place] [id number] Electrocardiograph Report Signed Patient: Shadia Lock MR#: [id number] 226 : 1995 Acct:[id number] Age/Sex: 28 / F ADM Date: 01/09/24 Loc: Room: [address] [place] [address] Type: ADM IN Attending Dr: Meng Ross MD Ordering Provider: Meng Ross MD Date of Service: 01/09/2407/24/500 ECG/ECG 12 lead ECG: baseline for psych meds Copies to: Test Reason : Blood Pressure : / mmHG Vent. Rate : 061 BPM Atrial Rate : 061 BPM P-R Int : 154 ms QRS Dur : 082 ms QT Int : 400 ms P-R-T Axes : 027 -02 -04 degrees QTc Int : 402 ms Normal sinus rhythm Nonspecific T wave abnormality Abnormal ECG Confirmed by [facility] ([id number] on 01/10/2024 2:54:46 PM Referred By: Electronically Signed By:CINTHIA SULLIVAN MD [facility] Transcribed By: MUS Signed By Shady Sullivan MD 01/10/24 1454 Normal [facility] Free T4 (Free Thyroxine)on 0 01-09-2024 Free T4 [Mass/Vol] 0.86 ng/dL Normal 0.61-1.12 [facility] Comment on above: Performed By: #### E AMANDA, CMP, REDRAW VITD, CBC #### [facility] [address] [place] [address] [facility] Lipid Panelon 01-09-2024 Cholesterol [Mass/Vol] 133 mg/dL Low 140-200 [facility] Comment on above: Result Comment: Chol less than 200 mg/dl low risk Chol 201-239 mg/dl borderline risk Chol 240 mg/dl and greater high risk Performed By: #### L IPID, TSH3 wRFLX, [id number], T4F #### [facility] [address] [place] [address] [facility] Cholesterol in HDL [Mass/Vol] 37 mg/dL Normal 23-92 [facility] Comment on above: Result Comment: HDL CHOL ATP-III CLASSIFICATION Cardiovascular Risk HDL > or equal to 60 mg/dL LOW HDL < 40 mg/dL HIGH Performed By: #### L IPID, TSH3 wRFLX, [id number], T4F #### [facility] [address] [place] [id number] [facility] Cholesterol.total/Choles terol in HDL [Mass ratio] 3.6 {ratio} Normal <5.0 [facility] Comment on above: Performed By: #### L IPID, TSH3 wRFLX, [id number], T4F #### [facility] [address] LDL Cholesterol,Calculated 79 mg/dL Normal 0-100 [facility] Comment on above: Result Comment: LDL ATP III CLASSIFICATION LDL less than 100 mg/dL Optimal LDL 100-129 mg/dL Near or above optimal LDL 130-159 mg/dL Borderline high LDL 160-189 mg/dL High LDL greater than 189 mg/dL Very high Performed By: #### L IPID, TSH3 wRFLX, [id number], T4F #### [facility] [address] Triglyceride w/Reflex 83 mg/dL Normal 0-149 [facility] Comment on above: Result Comment: TRIG ATP III CLASSIFICATION TRIG less than 150 mg/dL Normal TRIG 150-199 mg/dL Borderline high TRIG 200-500 mg/dL High TRIG greater than 500 mg/dL Very high Standard traceable to the Center for Disease Conrtrol and Prevention (CDC) test method. Performed By: #### L IPID, TSH3 wRFLX, [id number], T4F #### [facility] [address] [place] [id number] [facility] VLDL CHOLESTEROL 16 mg/dL Normal [facility] Comment on above: Performed By: #### L IPID, TSH3 wRFLX, [id number], T4F #### [facility] [address] [place] [id number] [facility] Thyroid Stim Hormone w/Rflxo n 01-09-2024 Thyroid Stim Hormone w/Rflx 0.36 u[iU]/mL Low 0.45-5.33 [facility] Comment on above: Performed By: #### E STEVEN PATEL, REDRAW VITD, CBC #### [place] [phone] [facility] Vitamin D 25 Hydroxy Totalon 01-09-2024 Vitamin D 25 Hydroxy Total Normal 30-100 [facility] Comment on above: Result Comment: Hemo lyzed-ADDED ON TO PREVIOUS REQUISITION VITAMIN D STATUS 25(OH)VITAMIN D RANGE (ng/mL) Deficient <20 Insufficient 20 to <30 Sufficient 30 to 100 Reference: [place] MF,Suzanne NC, [place] NAVARRO, et al. Evaluation,treatment, and prevention of vitamin D deficiency; an Endocrine Society clinical practice guideline. JCEM. 2010; 96(7):1911-30. PERFORMED BY: [place] [address] PATHOLOGIST CREDIT INTERN HENRIQUE BHARDWAJ M.D. Performed By: #### E STEVEN PATEL, REDRAW VITD, CBC #### [place] [id number] [facility] Alanine aminotransferase [En zymatic activity/volume] in Serum or PlasmaOrdered By: Won Harris on 01-08-2024 ALT [Catalytic activity/Vol] 28 U/L Normal 7-52 [facility] Comment on above: Performed By: #### E STEVEN PATEL, REDRAW VITD, CBC #### [address] Albumin [Mass/volume] in Ser um or Plasma by Bromocresol green (BCG) dye binding methoOrdered By: Won Harris on 01-08-2024 Albumin BCG dye [Mass/Vol] 4.5 g/dL 3.5-5.7 [facility] Alkaline phosphatase [Enzyma tic activity/volume] in Serum or PlasmaOrdered By: Won Harris on 01-08-2024 ALP [Catalytic activity/Vol] 45 U/L Normal 34-104 [facility] Comment on above: Performed By: #### E STEVEN PATEL, REDRAW VITD, CBC #### [address] Amphetamine Screen Ql (U)Ord ered By: Won Harris on 01-08-2024 Amphetamines Ql (U) Negative Negative [facility] Aspartate aminotransferase [ Enzymatic activity/volume] in Serum or PlasmaOrdered By: Won Harris on 01-08-2024 AST [Catalytic activity/Vol] 23 U/L Normal 13-39 [facility] Comment on above: Performed By: #### E AMANDA, CMP, REDRAW VITD, CBC #### [address] Automated basophil %Ordered By: Won Harris on 01-08-2024 Basophils/100 WBC (Bld) 0.4 % Normal . [facility] Comment on above: Performed By: #### E AMANDA, CMP, REDRAW VITD, CBC #### [address] Automated basophil countOrde red By: Won Harris on 01-08-2024 Basophils (Bld) [#/Vol] 0.0 10*3/uL Normal 0.0-0.2 [facility] Comment on above: Result Comment: PERF ORMED BY: [place] [address] PATHOLOGIST CREDIT INTERN HENRIQUE BHARDWAJ M.D. Performed By: #### E AMANDA, CMP, REDRAW VITD, CBC #### [address] Automated blood monocyte cou ntOrdered By: Won Harris on 01-08-2024 Monocytes (Bld) [#/Vol] 0.7 10*3/uL Normal 0.0-0.8 [facility] Comment on above: Performed By: #### E AMANDA, CMP, REDRAW VITD, CBC #### [facility] [address] [place] [address] Automated eosinophil %Ordere d By: Won Harris on 01-08-2024 Eosinophils/100 WBC (Bld) 0.9 % Normal . [facility] Comment on above: Performed By: #### E AMANDA, CMP, REDRAW VITD, CBC #### [facility] [address] Automated eosinophil countOr dered By: Won Harris on 01-08-2024 Eosinophils (Bld) [#/Vol] 0.1 10*3/uL Normal 0.0-0.45 [facility] Comment on above: Performed By: #### E AMANDA, CMP, REDRAW VITD, CBC #### [facility] [address] Automated erythrocytes count in urine sediment (number/area)Ordered By: Won Harris on 01-08-2024 RBC Auto (Urine sed) [#/Area] 0-1 [HPF] 0-4 [facility] Automated leukocytes count i n urine sediment (number/area)Ordered By: Won Harris on 01-08-2024 WBC Auto (Urine sed) [#/Area] 1-2 [HPF] 0-4 [facility] Automated monocyte %Ordered By: Won Harris on 01-08-2024 Monocytes/100 WBC (Bld) 8.5 % Normal . [facility] Comment on above: Performed By: #### E AMANDA, CMP, REDRAW VITD, CBC #### [facility] [address] Automated neutrophil %Ordere d By: Won Harris on 01-08-2024 Neutrophils/100 WBC (Bld) 54.2 % Normal . [facility] Comment on above: Performed By: #### E AMANDA, CMP, REDRAW VITD, CBC #### [facility] [address] Automated urine color determ inationOrdered By: Won Harris on 01-08-2024 Color (U) Dark yellow Critically abnormal Yellow [facility] Comment on above: Order Comment: Name Collection Type:: Clean-Voided Midstream Performed By: #### E AMANDA, CMP, REDRAW VITD, CBC #### [facility] [address] [place] [address] Barbiturates [Presence] in U rine by Screen methodOrdered By: Won Harris on 01-08-2024 Barbiturates Screen Ql (U) Negative Negative [facility] Benzodiazepines Screen Ql (U )Ordered By: Won Harris on 01-08-2024 Benzodiazepines Ql (U) Negative Negative [facility] Benzoylecgonine [Presence] i n Urine by Screen methodOrdered By: oWn Harris on 01-08-2024 Benzoylecgonine Screen Ql (U) Negative Negative [facility] Bilirubin Test strip Ql (U)O rdered By: Won Harris on 01-08-2024 Bilirubin Ql (U) Negative Negative [facility] Bilirubin.total [Mass/volume ] in Serum or PlasmaOrdered By: Won Harris on 01-08-2024 Bilirubin [Mass/Vol] 0.3 mg/dL Normal 0.3-1.0 [facility] Comment on above: Performed By: #### E AMANDA, CMP, REDRAW VITD, CBC #### [address] head/brain wo conon 01-07 CT head/brain wo [place] [address] CT Scan Report Signed Patient: Shadia Lock MR#: [id number] 226 : 1995 Acct:[id number] Age/Sex: 28 / F ADM Date: 01/08/24 Loc: ER Room: Type: [facility] ER Attending Dr: Copies to: Won Harris PA-C Ordering Provider: Won Harris PA-C Date of Service: 01/08/24 CT/CT head/brain wo con: ams CT head/brain wo con 01/08/2024 6:20 PM SIGNS AND SYMPTOMS: Altered mental status, forgetfulness TECHNIQUE:Multi-dete ctor CT axial slices of the brain were obtained without IV contrast. CT was performed with one or more of the following dose reduction techniques: Automated exposure control, adjustment of the mA and/or kV according to patient size, or use of iterative reconstruction technique. COMPARISON: None. FINDINGS: There is no shift of the midline structures, acute intracranial bleeding, mass effects, or evidence of acute ischemia. The ventricular system is normal in size. The brainstem and the cerebellum are unremarkable. The visualized intraorbital contents, the visualized paranasal sinuses, and the infratemporal soft tissues show no acute abnormality. The osseous structures in the skull base and the calvarium show no abnormality. CT/CT head/brain wo con IMPRESSION: Normal noncontrasted CT brain. Impression dictated by: Lane Williamson M.D.01/08/2024 6:59 PM Dictation Location: [place] [address] Transcribed By: [facility] 01/08/241858 Dictated By: Lane Williamson II, MD 01/08/241854 Signed By: 01/08/241858 Normal [facility] Calcium [Mass/volume] in Ser um or PlasmaOrdered By: Won Harris on 01-08-2024 Calcium [Mass/Vol] 9.1 mg/dL Normal 8.6-10.3 [facility] Comment on above: Performed By: #### E STEVEN PATEL, REDRAW VITD, CBC #### [facility] [address] [place] [id number] [facility] Cannabinoids [Presence] in U rine by Screen methodOrdered By: Won Harris on 01-08-2024 Cannabinoids Screen Ql (U) Positive Negative [facility] Comment on above: These are unconfirme d results and should not be used for legal purposes. Drug Cut-Off Concentration: AMPH 1000 ng/mL ARELY 200 ng/mL LATHA 200 ng/mL COCM 300 ng/mL OP 300 ng/mL PCP 25 ng/mL THC 20 ng/mL Carbon dioxide, total [Moles /volume] in Serum or PlasmaOrdered By: Won Harris on 01-08-2024 CO2 [Moles/Vol] 26.5 mmol/L Normal 21.0-31.0 [facility] Comment on above: Performed By: #### E STEVEN PATEL, REDRAW VITD, CBC #### [facility] [address] [place] [id number] [place] Casts typing in urine sedime nt by light microscopyOrdered By: Won Harris on 01-08-2024 Casts LM Nom (Urine sed) None seen [LPF] None S een [facility] Chloride [Moles/volume] in S jimmy or PlasmaOrdered By: Won Harris on 01-08-2024 Chloride [Moles/Vol] 104 mmol/L Normal 98-107 [facility] Comment on above: Performed By: #### E AMANDA, CMP, REDRAW VITD, CBC #### [facility] [address] [place] [address] Complete Blood Count Auto Di ffon 01-08-2024 Mean Corpuscular HGB Conc 32.8 g/dL Normal 32.0-35.0 [facility] Comment on above: Performed By: #### E AMANDA, CMP, REDRAW VITD, CBC #### [address] Monocytes/100 WBC (Bld) 20.61 % High 0.00-20.00 [facility] Comment on above: Result Comment: For adults in ED, MDW > 20.0 may be associated with a higher risk of sepsis during the first 12 hrs of hospital admission Performed By: #### E AMANDA, CMP, REDRAW VITD, CBC #### [facility] [address] [place] [address] NRBC% 0.1 /100{WBC} Normal 0-0.5 [facility] Comment on above: Performed By: #### E AMANDA, CMP, REDRAW VITD, CBC #### [facility] [address] [place] [address] Comprehensive Metabolic Pane kenn 01-08-2024 Albumin [Mass/Vol] 4.5 g/dL Normal 3.5-5.7 [facility] Comment on above: Performed By: #### E AMANDA, CMP, REDRAW VITD, CBC #### [facility] [address] [place] [address] Creatinine Clr Calc Pharmacy 164.72 Normal [facility] Comment on above: Result Comment: PERF ORMED BY: [place] [address] PATHOLOGIST CREDIT INTERN HENRIQUE BHARDWAJ M.D. Performed By: #### E AMANDA, CMP, REDRAW VITD, CBC #### [facility] [address] [place] [address] [place] GFR/1.73 sq M.predicted MDRD (S/P/Bld) [Vol rate/Area] mL/min/{1.73_m2} Normal [facility] Comment on above: Performed By: #### E AMANDA, CMP, REDRAW VITD, CBC #### [facility] [address] Creatinine [Mass/volume] in Serum or PlasmaOrdered By: Won Harris on 01-08-2024 Creatinine [Mass/Vol] 0.55 mg/dL Low 0.60-1.20 [facility] Comment on above: Performed By: #### E AMANDA, CMP, REDRAW VITD, CBC #### [facility] [address] [place] [address] [place] Dipstick and Microscopicon 0 01-08-2024 Appearance (U) Clear Normal Clear [facility] Comment on above: Order Comment: Name Collection Type:: Clean-Voided Midstream Performed By: #### E AMANDA, CMP, REDRAW VITD, CBC #### [facility] [address] [place] [address] [place] Bacteria,Urine None Seen Normal None Seen [facility] Comment on above: Order Comment: Name Collection Type:: Clean-Voided Midstream Performed By: #### E AMANDA, CMP, REDRAW VITD, CBC #### [facility] [address] [place] [address] [place] Bilirubin,Urine Negative Normal Negative [facility] Comment on above: Order Comment: Name Collection Type:: Clean-Voided Midstream Performed By: #### E AMANDA, CMP, REDRAW VITD, CBC #### [facility] [address] [place] [address] [place] Glucose Ql (U) Normal Normal Normal [facility] Comment on above: Order Comment: Name Collection Type:: Clean-Voided Midstream Performed By: #### E AMANDA, CMP, REDRAW VITD, CBC #### [facility] [address] [place] [address] [place] Hyaline Casts,Urine None Seen Normal 0-8 [facility] Comment on above: Order Comment: Name Collection Type:: Clean-Voided Midstream Performed By: #### E AMANDA, CMP, REDRAW VITD, CBC #### [facility] [address] [place] [address] [place] Ketones Ql (U) 4+ High Negative [facility] Comment on above: Order Comment: Name Collection Type:: Clean-Voided Midstream Performed By: #### E AMANDA, CMP, REDRAW VITD, CBC #### [address] Leukocyte esterase Test strip Ql (U) Negative Normal Negative [facility] Comment on above: Order Comment: Name Collection Type:: Clean-Voided Midstream Performed By: #### E AMANDA, CMP, REDRAW VITD, CBC #### [facility] [address] [place] [address] [place] Mucus,Urine 3+ Critically abnormal [facility] Comment on above: Order Comment: Name Collection Type:: Clean-Voided Midstream Performed By: #### E AMANDA, CMP, REDRAW VITD, CBC #### [facility] [address] [place] [address] [place] Nitrite,Urine Negative Normal Negative [facility] [facility] Comment on above: Order Comment: Name Collection Type:: Clean-Voided Midstream Performed By: #### E AMANDA, CMP, REDRAW VITD, CBC #### [facility] [address] [place] [address] [place] Occult Blood,Urine Negative Normal Negative [facility] Comment on above: Order Comment: Name Collection Type:: Clean-Voided Midstream Performed By: #### E AMANDA, CMP, REDRAW VITD, CBC #### [facility] [address] [place] [address] Other Casts,Urine None Seen Normal None Seen [facility] Comment on above: Order Comment: Name Collection Type:: Clean-Voided Midstream Performed By: #### E AMANDA, CMP, REDRAW VITD, CBC #### [place] [address] [place] Protein,Urine Trace High Negative [facility] Comment on above: Order Comment: Name Collection Type:: Clean-Voided Midstream Performed By: #### E AMANDA, CMP, REDRAW VITD, CBC #### [place] [address] [place] RBC LM.HPF (Urine sed) [#/Area] 0 /[HPF] Normal 0-4 [facility] Comment on above: Order Comment: Name Collection Type:: Clean-Voided Midstream Performed By: #### E AMANDA, CMP, REDRAW VITD, CBC #### [address] Specificy Brea,Urine 1.037 High 1.001-1.030 [facility] Comment on above: Order Comment: Name Collection Type:: Clean-Voided Midstream Performed By: #### E AMANDA, CMP, REDRAW VITD, CBC #### [place] [address] [place] Squamous Epithelial Cell,Urine 10-19 High 0-2 [facility] Comment on above: Order Comment: Name Collection Type:: Clean-Voided Midstream Performed By: #### E AMANDA, CMP, REDRAW VITD, CBC #### [place] [address] [place] Urobilinogen,Urine Normal Normal Normal [facility] Comment on above: Order Comment: Name Collection Type:: Clean-Voided Midstream Performed By: #### E AMANDA, CMP, REDRAW VITD, CBC #### [place] [address] [place] WBC,Urine 1-2 Normal 0-4 [facility] Comment on above: Order Comment: Name Collection Type:: Clean-Voided Midstream Performed By: #### E AMANDA, CMP, REDRAW VITD, CBC #### [facility] [address] Drug Screen,Urineon 01-08-20 24 Amphetamine Screen,Urine Negative Normal Negative [facility] Comment on above: Performed By: #### E AMANDA, CMP, REDRAW VITD, CBC #### [place] [address] [place] Barbiturate Screen,Urine Negative Normal Negative [facility] Comment on above: Performed By: #### E AMANDA, CMP, REDRAW VITD, CBC #### [address] Benzodiazepines Screen,Urine Negative Normal Negative [facility] Comment on above: Performed By: #### E AMANDA, CMP, REDRAW VITD, CBC #### [address] Cannabinoid Screen,Urine Positive High Negative [facility] Comment on above: Result Comment: Thes e are unconfirmed results and should not be used for legal purposes. Drug Cut-Off Concentration: AMPH 1000 ng/mL ARELY 200 ng/mL LATHA 200 ng/mL COCM 300 ng/mL OP 300 ng/mL PCP 25 ng/mL THC 20 ng/mL PERFORMED BY: [place] [address] PATHOLOGIST CREDIT INTERN HENRIQUE BHARDWAJ M.D. Performed By: #### E AMANDA, CMP, REDRAW VITD, CBC #### [place] [address] [place] Cocaine Screen,Urine Negative Normal Negative [facility] Comment on above: Performed By: #### E AMANDA, CMP, REDRAW VITD, CBC #### [place] [address] [place] Opiate Screen,Urine Negative Normal Negative [facility] Comment on above: Performed By: #### E AMANDA, CMP, REDRAW VITD, CBC #### [place] [address] [place] Phencyclidine Screen,Urine Negative Normal Negative [facility] Comment on above: Performed By: #### E AMANDA, CMP, REDRAW VITD, CBC #### [facility] [address] Erythrocyte distribution wid th [Ratio] by Automated countOrdered By: Won Harris on 01-08-2024 Erythrocyte distribution width (RBC) [Ratio] 16.2 % High 11.9-15.3 [facility] Comment on above: Performed By: #### E AMANDA, CMP, REDRAW VITD, CBC #### [facility] [address] [place] [address] [place] Erythrocytes [#/volume] in B lood by Automated countOrdered By: Won Harris on 01-08-2024 RBC (Bld) [#/Vol] 4.34 10*6/uL Normal 3.60-5.00 [facility] Comment on above: Performed By: #### E STEVEN PATEL, REDRAW VITD, CBC #### [facility] [address] [place] [address] Ethanol [Mass/volume] in Ser um or PlasmaOrdered By: Won Harris on 01-08-2024 Ethanol [Mass/Vol] mg/dL Normal [facility] Comment on above: Performed By: #### E STEVEN PATEL, REDRAW VITD, CBC #### [facility] [address] [place] [address] Ethanol [Mass/Vol] TNP [facility] Comment on above: Test not performed Ethyl Alcohol Profileon 12-29 Percent Ethanol Not performed Normal [facility] Comment on above: Result Comment: PERF ORMED BY: [place] [address] PATHOLOGIST CREDIT INTERN HENRIQUE BHARDWAJ M.D. Performed By: #### E AMANDASTEVEN Perez, REDRAW VITD, CBC #### [facility] [address] [place] [address] [place] Glucose [Mass/volume] in Ser um or PlasmaOrdered By: Won Harris on 01-08-2024 Glucose [Mass/Vol] 96 mg/dL Normal 70-100 [facility] Comment on above: ADA recommended refe rence rangeRandom Glucose Reference Range is dependent on time and content of last meal. Glucose of more than 200 mg/dL in a nonstressed, ambulatory subject supports the diagnosis of Diabetes Mellitus. Result Comment: [facility] Glucose Reference Range is dependent on time and content of last meal. Glucose of more than 200 mg/dL in a nonstressed, ambulatory subject supports the diagnosis of Diabetes Mellitus. ADA recommended reference range Performed By: #### E AMANDA, CMP, REDRAW VITD, CBC #### [address] HCG ( test) IA.rapi d Ql (U)Ordered By: Won Harris on 01-08-2024 HCG ( test) Ql (U) Negative [facility] HCG,Urineon 01-08-2024 Beta HCG ( test) Ql (U) Negative Normal [facility] Comment on above: Order Comment: Name Collection Type:: Clean-Voided Midstream Result Comment: PERF ORMED BY: [place] [address] PATHOLOGIST CREDIT INTERN HENRIQUE BHARDWAJ M.D. Performed By: #### E STEVEN PATEL, REDRAW VITD, CBC #### [address] Hematocrit [Volume Fraction] of Blood by Automated countOrdered By: Won Harris on 01-08-2024 Hematocrit (Bld) [Volume fraction] 35.4 % Normal 34.0-46.4 [facility] Comment on above: Performed By: #### E STEVEN PATEL, REDRAW VITD, CBC #### [address] Hemoglobin [Mass/volume] in BloodOrdered By: Won Harris on 01-08-2024 Hemoglobin (Bld) [Mass/Vol] 11.6 g/dL Low 11.8-15.4 [facility] Comment on above: Performed By: #### E AMANDA, CMP, REDRAW VITD, CBC #### [address] Ketones Auto test strip (U) [Mass/Vol]Ordered By: Won Harris on 01-08-2024 Ketones (U) [Mass/Vol] 4+ Negative [facility] - UrinalysisOrder ed By: Won Harris on 01-08-2024 Hyaline casts LM Ql (Urine sed) None seen [LPF] 0-8 [facility] Leukocytes [#/volume] correc ariana for nucleated erythrocytes in Blood by Automated counOrdered By: Won Harris on 01-08-2024 WBC corrected for nucl RBC Auto (Bld) [#/Vol] 8.1 10*3/uL 3.8-11.6 [facility] Leukocytes [#/volume] in Blo od by Automated countOrdered By: Won Harris on 01-08-2024 WBC (Bld) [#/Vol] 8.1 10*3/uL Normal 3.8-11.6 [facility] Comment on above: Performed By: #### E AMANDA CMP, REDRAW VITD, CBC #### [facility] [address] [place] [address] [place] Lymphocytes [#/volume] in Bl ood by Automated countOrdered By: Won Harris on 01-08-2024 Lymphocytes (Bld) [#/Vol] 2.9 10*3/uL Normal 1.00-4.8 [facility] Comment on above: Performed By: #### E AMANDA CMP, REDRAW VITD, CBC #### [facility] [address] [place] [address] [place] Lymphocytes/100 leukocytes i n Blood by Automated countOrdered By: Won Harris on 01-08-2024 Lymphocytes/100 WBC (Bld) 36.0 % Normal . [facility] Comment on above: Performed By: #### E AMANDA CMP, REDRAW VITD, CBC #### [facility] [address] [place] [address] [place] MCH [Entitic mass] by Automa ariana countOrdered By: Won Harris on 01-08-2024 MCH (RBC) [Entitic mass] 26.7 pg Normal 24.7-34.3 [facility] Comment on above: Performed By: #### E AMANDA, CMP, REDRAW VITD, CBC #### [facility] [address] MCHC Auto (RBC) [Mass/Vol]Or dered By: Won Harris on 01-08-2024 MCHC (RBC) [Mass/Vol] 32.8 g/dL 32.0-35.0 [facility] MCV [Entitic volume] by Auto mated countOrdered By: Won Harris on 01-08-2024 MCV (RBC) [Entitic vol] 81.5 fL Normal 80-100 [facility] Comment on above: Performed By: #### E STEVEN PATEL, REDRAW VITD, CBC #### [facility] [address] Monocyte distribution width [Entitic volume] in Blood by AutomatedOrdered By: Won Harris on 01-08-2024 Monocyte distribution width Auto (Bld) [Entitic vol] 20.61 % 0.00-20.00 [facility] Comment on above: For adults in ED, MD W > 20.0 may be associated with a higher risk of sepsis during the first 12 hrs of hospital admission Mucus LM Ql (Urine sed)Order ed By: Won Harris on 01-08-2024 Mucus Ql (Urine sed) 3+ [LPF] [facility] Neutrophils [#/volume] in Bl ood by Automated countOrdered By: Won Harris on 01-08-2024 Neutrophils (Bld) [#/Vol] 4.4 10*3/uL Normal 1.8-7.7 [facility] Comment on above: Performed By: #### E STEVEN PATEL, REDRAW VITD, CBC #### [facility] [address] Nitrite Test strip Ql (U)Ord ered By: Won Harris on 01-08-2024 Nitrite Ql (U) Negative Negative [facility] No Panel InformationOrdered By: Won Harris on 01-08-2024 Estimated GFR (CKD-EPI) > 60.0 mL/Min [facility] Creatinine Clearance (Chem 164.72 [facility] Nucleated erythrocytes [Pres ence] in Blood by Automated countOrdered By: Won Harris on 01-08-2024 Nucleated RBC Auto Ql (Bld) 0.1 /100{WBC} 0-0.5 [facility] Opiates [Presence] in Urine by Screen methodOrdered By: Won Harris on 01-08-2024 Opiates Screen Ql (U) Negative Negative [facility] Phencyclidine Screen Ql (U)O rdered By: Won Harris on 01-08-2024 Phencyclidine Ql (U) Negative Negative [facility] Platelet mean volume [Entiti c volume] in Blood by Automated countOrdered By: Won Harris on 01-08-2024 Platelet mean volume (Bld) [Entitic vol] 7.8 fL Normal 6.3-10.7 [facility] Comment on above: Performed By: #### E AMANDA, CMP, REDRAW VITD, CBC #### [facility] [address] [place] [address] [place] Platelets [#/volume] in Bloo d by Automated countOrdered By: Won Harris on 01-08-2024 Platelets (Bld) [#/Vol] 296 10*3/uL Normal 150-450 [facility] Comment on above: Performed By: #### E AMANDA, CMP, REDRAW VITD, CBC #### [facility] [address] [place] [id number] [place] Potassium [Moles/volume] in Serum or PlasmaOrdered By: Won Harris on 01-08-2024 Potassium [Moles/Vol] 3.2 mmol/L Low 3.5-5.1 [facility] Comment on above: Performed By: #### E AMANDA, CMP, REDRAW VITD, CBC #### [facility] [address] [place] [address] [place] Protein Auto test strip (U) [Mass/Vol]Ordered By: Won Harris on 01-08-2024 Protein (U) [Mass/Vol] Trace mg/dL Negative [facility] Protein [Mass/volume] in Ser um or PlasmaOrdered By: Won Harris on 01-08-2024 Protein [Mass/Vol] 7.3 g/dL Normal 6.4-8.9 [facility] Comment on above: Performed By: #### E STEVEN PATEL, REDRAW VITD, CBC #### [address] Redraw Vitamin D 25OHon 12-29 Redraw Vitamin D 25OH 15.5 ng/mL Low 30-100 [facility] Comment on above: Result Comment: TOÑA MIN D STATUS 25(OH)VITAMIN D RANGE (ng/mL) Deficient <20 Insufficient 20 to <30 Sufficient 30 to 100 Reference: [place] MF,[place] NC, [place] NAVARRO, et al. Evaluation,treatment, and prevention of vitamin D deficiency; an Endocrine Society clinical practice guideline. JCEM. 2010; 96(7):1911-30. PERFORMED BY: [place] [address] PATHOLOGIST CREDIT INTERN HENRIQUE BHARDWAJ M.D. Performed By: #### E STEVEN PATEL, REDRAW VITD, CBC #### [address] Serum globulin measurement b y calculation (mass/volume)Ordered By: Won Harris on 01-08-2024 Globulin (S) [Mass/Vol] 2.8 g/dL Normal [facility] Comment on above: Performed By: #### E STEVEN PATEL, REDRAW VITD, CBC #### [facility] [address] [place] [address] Serum or plasma albumin/glob ulin mass ratioOrdered By: Won Harris on 01-08-2024 Albumin/Globulin [Mass ratio] 1.6 {ratio} Normal [facility] Comment on above: Performed By: #### E STEVEN PATEL, REDRAW VITD, CBC #### [address] Serum or plasma anion gap de terminationOrdered By: Won Harris on 01-08-2024 Anion gap [Moles/Vol] 10.7 mmol/L Normal 6.0-15.0 [facility] Comment on above: Performed By: #### E STEVEN PATEL, REDRAW VITD, CBC #### [facility] [address] [place] [address] [place] Sodium [Moles/volume] in Ser um or PlasmaOrdered By: Won Harris on 01-08-2024 Sodium [Moles/Vol] 138 mmol/L Normal 136-145 [facility] Comment on above: Performed By: #### E STEVEN PATEL, REDRAW VITD, CBC #### [facility] [address] Specific gravity Auto test s trip (U) [Rel density]Ordered By: Won Harris on 01-08-2024 Specific gravity (U) [Rel density] 1.037 1.001-1.030 [facility] Squamous epithelial cells de tection in urine sediment by light microscopyOrdered By: Won Harris on 01-08-2024 Epithelial cells.squamous LM Ql (Urine sed) 10-19 [HPF] 0-2 [facility] Urea nitrogen [Mass/volume] in Serum or PlasmaOrdered By: Won Harris on 01-08-2024 Urea nitrogen [Mass/Vol] 11 mg/dL Normal 7-25 [facility] Comment on above: Performed By: #### E STEVEN PATEL, REDRAW VITD, CBC #### [facility] [address] [place] [address] [place] Urine bacteria detection by automated methodOrdered By: Won Harris on 01-08-2024 Bacteria Auto Ql (U) None seen [HPF] None Seen [facility] Urine clarity by refractomet ry automatedOrdered By: Won Harris on 01-08-2024 Clarity Refractometry automated (U) Clear Clear [facility] Urine glucose measurement by automated test strip (mass/volume)Ordered By: Won Harris on 01-08-2024 Glucose Auto test strip (U) [Mass/Vol] Normal mg/dL Normal [facility] Urine hemoglobin detection b y automated test stripOrdered By: Won Harris on 01-08-2024 Hemoglobin Auto test strip Ql (U) Negative Negative [facility] Urine leukocyte esterase det ection by automated test stripOrdered By: Won Harris on 01-08-2024 Leukocyte esterase Auto test strip Ql (U) Negative Negative [facility] Urine pH measurement by auto mated test stripOrdered By: Won Harris on 01-08-2024 pH (U) 6.5 [pH] Normal 5.0-9.0 [facility] Comment on above: Order Comment: Name Collection Type:: Clean-Voided Midstream Performed By: #### E STEVEN PATEL, REDRAW VITD, CBC #### [facility] [address] Urobilinogen Auto test strip (U) [Mass/Vol]Ordered By: Won Harris on 01-08-2024 Urobilinogen (U) [Mass/Vol] Normal mg/dL Normal [facility] Alanine aminotransferase [En zymatic activity/volume] in Serum or PlasmaOrdered By: Marvin Cutler on 01-04-2024 ALT [Catalytic activity/Vol] 29 U/L Normal 7-52 [facility] Comment on above: Performed By: #### E STEVEN PATEL, REDRAW VITD, CBC #### [facility] [address] Albumin [Mass/volume] in Ser um or Plasma by Bromocresol green (BCG) dye binding methoOrdered By: Marvin Cutler on 01-04-2024 Albumin BCG dye [Mass/Vol] 4.5 g/dL 3.5-5.7 [facility] Alkaline phosphatase [Enzyma tic activity/volume] in Serum or PlasmaOrdered By: Marvin Cutler on 01-04-2024 ALP [Catalytic activity/Vol] 47 U/L Normal 34-104 [facility] Comment on above: Performed By: #### E STEVEN PATEL, REDRAW VITD, CBC #### [facility] [address] Amphetamine Screen Ql (U)Ord ered By: Marvin Cutler on 01-04-2024 Amphetamines Ql (U) Negative Negative [facility] Aspartate aminotransferase [ Enzymatic activity/volume] in Serum or PlasmaOrdered By: Marvin Cutler on 01-04-2024 AST [Catalytic activity/Vol] 27 U/L Normal 13-39 [facility] Comment on above: Performed By: #### E AMANDA, CMP, REDRAW VITD, CBC #### [address] Automated basophil %Ordered By: Marvin Cutler on 01-04-2024 Basophils/100 WBC (Bld) 0.5 % Normal . [facility] Comment on above: Performed By: #### E AMANDA, CMP, REDRAW VITD, CBC #### [address] Automated basophil countOrde red By: Marvin Cutler on 01-04-2024 Basophils (Bld) [#/Vol] 0.0 10*3/uL Normal 0.0-0.2 [facility] Comment on above: Result Comment: PERF ORMED BY: [place] [address] PATHOLOGIST CREDIT INTERN HENRIQUE BHARDWAJ M.D. Performed By: #### E AMANDA, CMP, REDRAW VITD, CBC #### [address] Automated blood monocyte cou ntOrdered By: Marvin Cutler on 01-04-2024 Monocytes (Bld) [#/Vol] 0.7 10*3/uL Normal 0.0-0.8 [facility] Comment on above: Performed By: #### E AMANDA, CMP, REDRAW VITD, CBC #### [address] Automated eosinophil %Ordere d By: Marvin Cutler on 01-04-2024 Eosinophils/100 WBC (Bld) 0.3 % Normal . [facility] Comment on above: Performed By: #### E AMANDA, CMP, REDRAW VITD, CBC #### [address] Automated eosinophil countOr dered By: Marvin Cutler on 01-04-2024 Eosinophils (Bld) [#/Vol] 0.0 10*3/uL Normal 0.0-0.45 [facility] Comment on above: Performed By: #### E AMANDA, CMP, REDRAW VITD, CBC #### [facility] [address] Automated erythrocytes count in urine sediment (number/area)Ordered By: Marvin Cutler on 01-04-2024 RBC Auto (Urine sed) [#/Area] 0-1 [HPF] 0-4 [facility] Automated leukocytes count i n urine sediment (number/area)Ordered By: Marvin Cutler on 01-04-2024 WBC Auto (Urine sed) [#/Area] 0-1 [HPF] 0-4 [facility] Automated monocyte %Ordered By: Marvin Cutler on 01-04-2024 Monocytes/100 WBC (Bld) 8.5 % Normal . [facility] Comment on above: Performed By: #### E AMANDA, CMP, REDRAW VITD, CBC #### [facility] [address] Automated neutrophil %Ordere d By: Marvin Cutler on 01-04-2024 Neutrophils/100 WBC (Bld) 60.7 % Normal . [facility] Comment on above: Performed By: #### E AMANDA, CMP, REDRAW VITD, CBC #### [facility] [address] Automated urine color determ inationOrdered By: Marvin Cutler on 01-04-2024 Color (U) Yellow Normal Yellow [facility] Comment on above: Order Comment: Name Collection Type:: Clean-Voided Midstream Performed By: #### U HCG, URDS, ADDONUAPLUS #### [facility] [address] Barbiturates [Presence] in U rine by Screen methodOrdered By: Marvin Cutler on 01-04-2024 Barbiturates Screen Ql (U) Negative Negative [facility] Benzodiazepines Screen Ql (U )Ordered By: Marvin Cutler on 01-04-2024 Benzodiazepines Ql (U) Negative Negative [facility] Benzoylecgonine [Presence] i n Urine by Screen methodOrdered By: Marvin Cutler on 01-04-2024 Benzoylecgonine Screen Ql (U) Negative Negative [facility] Bilirubin Test strip Ql (U)O rdered By: Marvin Cutler on 01-04-2024 Bilirubin Ql (U) Negative Negative [facility] Bilirubin.total [Mass/volume ] in Serum or PlasmaOrdered By: Marvin Cutler on 01-04-2024 Bilirubin [Mass/Vol] 0.3 mg/dL Normal 0.3-1.0 [facility] Comment on above: Performed By: #### E STEVEN PATEL, REDRAW VITD, CBC #### [facility] [address] [place] [address] [place] Calcium [Mass/volume] in Ser um or PlasmaOrdered By: Marvin Cutler on 01-04-2024 Calcium [Mass/Vol] 9.2 mg/dL Normal 8.6-10.3 [facility] Comment on above: Performed By: #### E STEVEN PATEL, REDRAW VITD, CBC #### [facility] [address] [place] [address] [place] Cannabinoids [Presence] in U rine by Screen methodOrdered By: Marvin Cutler on 01-04-2024 Cannabinoids Screen Ql (U) Positive Negative [facility] Comment on above: These are unconfirme d results and should not be used for legal purposes. Drug Cut-Off Concentration: AMPH 1000 ng/mL ARELY 200 ng/mL LATHA 200 ng/mL COCM 300 ng/mL OP 300 ng/mL PCP 25 ng/mL THC 20 ng/mL Carbon dioxide, total [Moles /volume] in Serum or PlasmaOrdered By: Marvin Cutler on 01-04-2024 CO2 [Moles/Vol] 26.9 mmol/L Normal 21.0-31.0 [facility] Comment on above: Performed By: #### E STEVEN PATEL, REDRAW VITD, CBC #### [facility] [address] [place] [id number] [place] Chloride [Moles/volume] in S jimmy or PlasmaOrdered By: Marvin Cutler on 01-04-2024 Chloride [Moles/Vol] 103 mmol/L Normal 98-107 [facility] Comment on above: Performed By: #### E AMANDA, CMP, REDRAW VITD, CBC #### [address] Complete Blood Count Auto Di ffon 01-04-2024 Mean Corpuscular HGB Conc 32.2 g/dL Normal 32.0-35.0 [facility] Comment on above: Performed By: #### E AMANDA, CMP, REDRAW VITD, CBC #### [address] Monocytes/100 WBC (Bld) 17.98 % Normal 0.00-20.00 [facility] Comment on above: Performed By: #### E AMANDA, CMP, REDRAW VITD, CBC #### [address] NRBC% 0.0 /100{WBC} Normal 0-0.5 [facility] Comment on above: Performed By: #### E AMANDA, CMP, REDRAW VITD, CBC #### [address] Comprehensive Metabolic Pane kenn 01-04-2024 Albumin [Mass/Vol] 4.5 g/dL Normal 3.5-5.7 [facility] Comment on above: Performed By: #### E AMANDA, CMP, REDRAW VITD, CBC #### [address] Creatinine Clr Calc Pharmacy 156.65 Normal [facility] Comment on above: Result Comment: PERF ORMED BY: [place] [address] PATHOLOGIST CREDIT INTERN HENRIQUE BHARDWAJ M.D. Performed By: #### E AMANDA, CMP, REDRAW VITD, CBC #### [address] GFR/1.73 sq M.predicted MDRD (S/P/Bld) [Vol rate/Area] mL/min/{1.73_m2} Normal [facility] Comment on above: Performed By: #### E AMANDA, CMP, REDRAW VITD, CBC #### [facility] [address] [place] [address] [place] Creatinine [Mass/volume] in Serum or PlasmaOrdered By: Marvin Cutler on 01-04-2024 Creatinine [Mass/Vol] 0.56 mg/dL Low 0.60-1.20 [facility] Comment on above: Performed By: #### E AMANDA, CMP, REDRAW VITD, CBC #### [facility] [address] [place] [address] [place] Dipstick and Microscopicon 0 01-04-2024 Appearance (U) Clear Normal Clear [facility] [facility] Comment on above: Order Comment: Name Collection Type:: Clean-Voided Midstream Performed By: #### U HCG, URDS, ADDONUAPLUS #### [facility] [address] [place] [address] [place] Bacteria,Urine 1+ High None Seen [facility] Comment on above: Order Comment: Name Collection Type:: Clean-Voided Midstream Performed By: #### U HCG, URDS, ADDONUAPLUS #### [facility] [address] [place] [address] [place] Bilirubin,Urine Negative Normal Negative [facility] Comment on above: Order Comment: Name Collection Type:: Clean-Voided Midstream Performed By: #### U HCG, URDS, ADDONUAPLUS #### [facility] [address] [place] [address] [place] Glucose Ql (U) Normal Normal Normal [facility] Comment on above: Order Comment: Name Collection Type:: Clean-Voided Midstream Performed By: #### U HCG, URDS, ADDONUAPLUS #### [facility] [address] [place] [address] [place] Hyaline Casts,Urine 0-8 Normal 0-8 [facility] Comment on above: Order Comment: Name Collection Type:: Clean-Voided Midstream Performed By: #### U HCG, URDS, ADDONUAPLUS #### [facility] [address] [place] [address] [place] Ketones Ql (U) 3+ High Negative [facility] Comment on above: Order Comment: Name Collection Type:: Clean-Voided Midstream Performed By: #### U HCG, URDS, ADDONUAPLUS #### [address] Leukocyte esterase Test strip Ql (U) Negative Normal Negative [facility] Comment on above: Order Comment: Name Collection Type:: Clean-Voided Midstream Performed By: #### U HCG, URDS, ADDONUAPLUS #### [place] [address] [place] Nitrite,Urine Negative Normal Negative [facility] Comment on above: Order Comment: Name Collection Type:: Clean-Voided Midstream Performed By: #### U HCG, URDS, ADDONUAPLUS #### [address] Occult Blood,Urine Negative Normal Negative [facility] Comment on above: Order Comment: Name Collection Type:: Clean-Voided Midstream Performed By: #### U HCG, URDS, ADDONUAPLUS #### [place] [address] [place] Protein,Urine Trace High Negative [facility] Comment on above: Order Comment: Name Collection Type:: Clean-Voided Midstream Performed By: #### U HCG, URDS, ADDONUAPLUS #### [place] [address] [place] RBC LM.HPF (Urine sed) [#/Area] 0 /[HPF] Normal 0-4 [facility] Comment on above: Order Comment: Name Collection Type:: Clean-Voided Midstream Performed By: #### U HCG, URDS, ADDONUAPLUS #### [place] [address] [place] Specificy Brea,Urine 1.036 High 1.001-1.030 [facility] Comment on above: Order Comment: Name Collection Type:: Clean-Voided Midstream Performed By: #### U HCG, URDS, ADDONUAPLUS #### [place] [address] [place] Squamous Epithelial Cell,Urine 5-9 High 0-2 [facility] Comment on above: Order Comment: Name Collection Type:: Clean-Voided Midstream Performed By: #### U HCG, URDS, ADDONUAPLUS #### [address] Urobilinogen,Urine Normal Normal Normal [facility] Comment on above: Order Comment: Name Collection Type:: Clean-Voided Midstream Performed By: #### U HCG, URDS, ADDONUAPLUS #### [address] WBC LM.HPF (Urine sed) [#/Area] 0 /[HPF] Normal 0-4 [facility] Comment on above: Order Comment: Name Collection Type:: Clean-Voided Midstream Performed By: #### U HCG, URDS, ADDONUAPLUS #### [address] Drug Screen,Urineon 01-04-20 Amphetamine Screen,Urine Negative Normal Negative [facility] Comment on above: Performed By: #### U HCG, URDS, ADDONUAPLUS #### [address] Barbiturate Screen,Urine Negative Normal Negative [facility] Comment on above: Performed By: #### U HCG, URDS, ADDONUAPLUS #### [address] Benzodiazepines Screen,Urine Negative Normal Negative [facility] Comment on above: Performed By: #### U HCG, URDS, ADDONUAPLUS #### [address] Cannabinoid Screen,Urine Positive High Negative [facility] Comment on above: Result Comment: Thes e are unconfirmed results and should not be used for legal purposes. Drug Cut-Off Concentration: AMPH 1000 ng/mL ARELY 200 ng/mL LATHA 200 ng/mL COCM 300 ng/mL OP 300 ng/mL PCP 25 ng/mL THC 20 ng/mL PERFORMED BY: [place] [address] PATHOLOGIST CREDIT INTERN HENRIQUE BHARDWAJ M.D. Performed By: #### U HCG, URDS, ADDONUAPLUS #### [address] Cocaine Screen,Urine Negative Normal Negative [facility] Comment on above: Performed By: #### U HCG, URDS, ADDONUAPLUS #### [address] Opiate Screen,Urine Negative Normal Negative [facility] Comment on above: Performed By: #### U HCG, URDS, ADDONUAPLUS #### [address] Phencyclidine Screen,Urine Negative Normal Negative [facility] Comment on above: Performed By: #### U HCG, URDS, ADDONUAPLUS #### [address] Erythrocyte distribution wid th [Ratio] by Automated countOrdered By: Marvin Cutler on 01-04-2024 Erythrocyte distribution width (RBC) [Ratio] 16.6 % High 11.9-15.3 [facility] Comment on above: Performed By: #### E AMANDA, CMP, REDRAW VITD, CBC #### [address] Erythrocytes [#/volume] in B lood by Automated countOrdered By: Marvin Cutler on 01-04-2024 RBC (Bld) [#/Vol] 4.45 10*6/uL Normal 3.60-5.00 [facility] Comment on above: Performed By: #### E AMANDA, CMP, REDRAW VITD, CBC #### [address] Ethanol [Mass/volume] in Ser um or PlasmaOrdered By: Marvin Cutler on 01-04-2024 Ethanol [Mass/Vol] mg/dL Normal [facility] Comment on above: Performed By: #### E AMANDA, CMP, REDRAW VITD, CBC #### [address] Ethanol [Mass/Vol] TNP [facility] Comment on above: Test not performed Ethyl Alcohol Profileon Percent Ethanol Not performed Normal [facility] Comment on above: Result Comment: PERF ORMED BY: [place] [address] PATHOLOGIST CREDIT INTERN HENRIQUE BHARDWAJ M.D. Performed By: #### [place] PATEL CMP, REDRAW VITNathaly, CBC #### [facility] [address] [place] [address] [place] Glucose [Mass/volume] in Ser um or PlasmaOrdered By: Marvin Cutler on 01-04-2024 Glucose [Mass/Vol] 116 mg/dL High 70-100 [facility] Comment on above: ADA recommended refe rence rangeRandom Glucose Reference Range is dependent on time and content of last meal. Glucose of more than 200 mg/dL in a nonstressed, ambulatory subject supports the diagnosis of Diabetes Mellitus. Result Comment: [facility] Glucose Reference Range is dependent on time and content of last meal. Glucose of more than 200 mg/dL in a nonstressed, ambulatory subject supports the diagnosis of Diabetes Mellitus. ADA recommended reference range Performed By: #### [place] PATEL CMP, REDRAW VITD, CBC #### [facility] [address] [place] [address] [place] HCG ( test) IA.rapi d Ql (U)Ordered By: Marvin Cutler on 01-04-2024 HCG ( test) Ql (U) Negative [facility] HCG,Urineon 01-04-2024 Beta HCG ( test) Ql (U) Negative Normal [facility] Comment on above: Order Comment: Name Collection Type:: Clean-Voided Midstream Result Comment: PERF ORMED BY: [place] [address] PATHOLOGIST CREDIT INTERN HENRIQUE BHARDWAJ M.D. Performed By: #### U HCG, URDS, ADDONUAPLUS #### [address] [address] [place] Hematocrit [Volume Fraction] of Blood by Automated countOrdered By: Marvin Cutler on 01-04-2024 Hematocrit (Bld) [Volume fraction] 36.3 % Normal 34.0-46.4 [facility] Comment on above: Performed By: #### E STEVEN PATEL, REDRAW VITD, CBC #### [facility] [address] Hemoglobin [Mass/volume] in BloodOrdered By: Marvin Cutler on 01-04-2024 Hemoglobin (Bld) [Mass/Vol] 11.7 g/dL Low 11.8-15.4 [facility] Comment on above: Performed By: #### E STEVEN PATEL, REDRAW VITD, CBC #### [facility] [address] Ketones Auto test strip (U) [Mass/Vol]Ordered By: Marvin Cutler on 01-04-2024 Ketones (U) [Mass/Vol] 3+ Negative [facility] - UrinalysisOrder ed By: Marvin Cutler on 01-04-2024 Hyaline casts LM Ql (Urine sed) 0-8 [LPF] 0-8 [facility] Leukocytes [#/volume] correc ariana for nucleated erythrocytes in Blood by Automated counOrdered By: Marvin Cutler on 01-04-2024 WBC corrected for nucl RBC Auto (Bld) [#/Vol] 7.7 10*3/uL 3.8-11.6 [facility] Leukocytes [#/volume] in Blo od by Automated countOrdered By: Marvin Cutler on 01-04-2024 WBC (Bld) [#/Vol] 7.7 10*3/uL Normal 3.8-11.6 [facility] Comment on above: Performed By: #### E STEVEN PATEL, REDRAW VITD, CBC #### [facility] [address] [place] [address] [place] Lymphocytes [#/volume] in Bl ood by Automated countOrdered By: Marvin Cutler on 01-04-2024 Lymphocytes (Bld) [#/Vol] 2.3 10*3/uL Normal 1.00-4.8 [facility] Comment on above: Performed By: #### E AMANDA, CMP, REDRAW VITD, CBC #### [facility] [address] [place] [address] Lymphocytes/100 leukocytes i n Blood by Automated countOrdered By: Marvin Cutler on 01-04-2024 Lymphocytes/100 WBC (Bld) 30.0 % Normal . [facility] Comment on above: Performed By: #### E AMANDA, CMP, REDRAW VITD, CBC #### [facility] [address] [place] [address] MCH [Entitic mass] by Automa ariana countOrdered By: Marvin Cutler on 01-04-2024 MCH (RBC) [Entitic mass] 26.3 pg Normal 24.7-34.3 [facility] Comment on above: Performed By: #### E AMANDA, CMP, REDRAW VITD, CBC #### [address] MCHC Auto (RBC) [Mass/Vol]Or dered By: Marvin Cutler on 01-04-2024 MCHC (RBC) [Mass/Vol] 32.2 g/dL 32.0-35.0 [facility] MCV [Entitic volume] by Auto mated countOrdered By: Marvin Cutler on 01-04-2024 MCV (RBC) [Entitic vol] 81.6 fL Normal 80-100 [facility] Comment on above: Performed By: #### E AMANDA, CMP, REDRAW VITD, CBC #### [facility] [address] [place] [address] Monocyte distribution width [Entitic volume] in Blood by AutomatedOrdered By: Marvin Cutler on 01-04-2024 Monocyte distribution width Auto (Bld) [Entitic vol] 17.98 % 0.00-20.00 [facility] Neutrophils [#/volume] in Bl ood by Automated countOrdered By: Marvin Cutler on 01-04-2024 Neutrophils (Bld) [#/Vol] 4.7 10*3/uL Normal 1.8-7.7 [facility] Comment on above: Performed By: #### E AMANDA, CMP, REDRAW VITD, CBC #### [facility] [address] [place] [address] [place] Nitrite Test strip Ql (U)Ord ered By: Marvin Cutler on 01-04-2024 Nitrite Ql (U) Negative Negative [facility] No Panel InformationOrdered By: Marvin Cutler on 01-04-2024 Estimated GFR (CKD-EPI) > 60.0 mL/Min [facility] Creatinine Clearance (Chem 156.65 [facility] Nucleated erythrocytes [Pres ence] in Blood by Automated countOrdered By: Marvin Cutler on 01-04-2024 Nucleated RBC Auto Ql (Bld) 0.0 /100{WBC} 0-0.5 [facility] Opiates [Presence] in Urine by Screen methodOrdered By: Marvin Cutler on 01-04-2024 Opiates Screen Ql (U) Negative Negative [facility] Phencyclidine Screen Ql (U)O rdered By: Marvin Cutler on 01-04-2024 Phencyclidine Ql (U) Negative Negative [facility] Platelet mean volume [Entiti c volume] in Blood by Automated countOrdered By: Marvin Cutler on 01-04-2024 Platelet mean volume (Bld) [Entitic vol] 7.8 fL Normal 6.3-10.7 [facility] Comment on above: Performed By: #### E STEVEN PATEL, REDRAW VITD, CBC #### [facility] [address] [place] [id number] [place] Platelets [#/volume] in Bloo d by Automated countOrdered By: Marvin Cutler on 01-04-2024 Platelets (Bld) [#/Vol] 307 10*3/uL Normal 150-450 [facility] Comment on above: Performed By: #### E STEVEN PATEL, REDRAW VITD, CBC #### [facility] [address] [place] [address] [place] Potassium [Moles/volume] in Serum or PlasmaOrdered By: Marvin Cutler on 01-04-2024 Potassium [Moles/Vol] 3.2 mmol/L Low 3.5-5.1 [facility] Comment on above: Performed By: #### E STEVEN PATEL, REDRAW VITD, CBC #### [address] Protein Auto test strip (U) [Mass/Vol]Ordered By: Marvin Cutler on 01-04-2024 Protein (U) [Mass/Vol] Trace mg/dL Negative F [facility] Protein [Mass/volume] in Ser um or PlasmaOrdered By: Marvin Cutler on 01-04-2024 Protein [Mass/Vol] 7.2 g/dL Normal 6.4-8.9 [facility] Comment on above: Performed By: #### E STEVEN PATEL, REDRAW VITD, CBC #### [address] Serum globulin measurement b y calculation (mass/volume)Ordered By: Marvin Cutler on 01-04-2024 Globulin (S) [Mass/Vol] 2.7 g/dL Normal F [facility] Comment on above: Performed By: #### E STEVEN PATEL, REDRAW VITD, CBC #### [address] Serum or plasma albumin/glob ulin mass ratioOrdered By: Marvin Cutler on 01-04-2024 Albumin/Globulin [Mass ratio] 1.7 {ratio} Normal [facility] Comment on above: Performed By: #### E STEVEN PATEL, REDRAW VITD, CBC #### [address] Serum or plasma anion gap de terminationOrdered By: Marvin Cutler on 01-04-2024 Anion gap [Moles/Vol] 11.3 mmol/L Normal 6.0-15.0 [facility] Comment on above: Performed By: #### E STEVEN PATEL, REDRAW VITD, CBC #### [address] Sodium [Moles/volume] in Ser um or PlasmaOrdered By: Marvin Cutler on 01-04-2024 Sodium [Moles/Vol] 138 mmol/L Normal 136-145 [facility] Comment on above: Performed By: #### E AMANDA, STEVEN, REDRAW VITD, CBC #### [facility] [address] [place] [address] [place] Specific gravity Auto test s trip (U) [Rel density]Ordered By: Marvin Cutler on 01-04-2024 Specific gravity (U) [Rel density] 1.036 1.001-1.030 [facility] Squamous epithelial cells de tection in urine sediment by light microscopyOrdered By: Marvin Cutler on 01-04-2024 Epithelial cells.squamous LM Ql (Urine sed) 5-9 [HPF] 0-2 [facility] Urea nitrogen [Mass/volume] in Serum or PlasmaOrdered By: Marvin Cutler on 01-04-2024 Urea nitrogen [Mass/Vol] 10 mg/dL Normal 7-25 [facility] Comment on above: Performed By: #### E AMANDA, CMP, REDRAW VITD, CBC #### [facility] [address] Urine bacteria detection by automated methodOrdered By: Marvin Cutler on 01-04-2024 Bacteria Auto Ql (U) 1+ [HPF] None Seen [facility] Urine clarity by refractomet ry automatedOrdered By: Marvin Cutler on 01-04-2024 Clarity Refractometry automated (U) Clear Clear [facility] Urine glucose measurement by automated test strip (mass/volume)Ordered By: Marvin Cutler on 01-04-2024 Glucose Auto test strip (U) [Mass/Vol] Normal mg/dL Normal [facility] Urine hemoglobin detection b y automated test stripOrdered By: Marvin Cutler on 01-04-2024 Hemoglobin Auto test strip Ql (U) Negative Negative [facility] Urine leukocyte esterase det ection by automated test stripOrdered By: Marvin Cutler on 01-04-2024 Leukocyte esterase Auto test strip Ql (U) Negative Negative [facility] Urine pH measurement by auto mated test stripOrdered By: Marvin Cutler on 01-04-2024 pH (U) 6.0 [pH] Normal 5.0-9.0 [facility] Comment on above: Order Comment: Name Collection Type:: Clean-Voided Midstream Performed By: #### U HCG, URDS, ADDONUAPLUS #### [facility] [address] Urobilinogen Auto test strip (U) [Mass/Vol]Ordered By: Marvin Cutler on 01-04-2024 Urobilinogen (U) [Mass/Vol] Normal mg/dL Normal [facility] HEP B SURFACE ANTIGEN SCREEN on 12-17-2022 HBsAg Screen Negative Normal Negative [facility] Comment on above: Performed By: #### H BSANS #### [facility] [address] [place] [address] [address] Dawn Guzman HEPATITIS C VIRUS AB W/ REFL EX QUANTon 12-17-2022 HCV AB Non-Reactive Normal Non Reactive [facility] Comment on above: Performed By: #### H CVPCRR #### [facility] [address] [place] [address] Dr. Dawn Guzman Interpretation: Comment Normal [facility] Comment on above: Result Comment: Not infected with HCV unless early or acute infection is suspected (which may be delayed in an immunocompromised individual), or other evidence exists to indicate HCV infection. Performed By: #### H CVPCRR #### [facility] [address] [address] [address] Dawn Guzman HIV 1 AND 2 WITH REFLEXon HIV Screen 4th Generation wRfx Non-Reactive Normal Non Reactive [facility] Comment on above: Result Comment: HIV Negative HIV-1/HIV-2 antibodies and HIV-1 p24 antigen were NOT detected. There is no laboratory evidence of HIV infection. Performed By: #### H IV12 #### [facility] [address] [address] [address] Dawn Guzman RPR QUANTon 12-17-2022 Rapid Plasma Reagin, Quant Non-Reactive Normal NonRea<1:1 [facility] Comment on above: Result Comment: Plea se Note: This test does not meet current guidelines for screening and diagnosis of syphilis. This test is intended for following treatment response in patients being treated for syphilis infection. To screen for syphilis infection, a reflex cascade that includes both RPR and a treponema-specific assay should be utilized, such as Treponema pallidum (Syphilis) Screening [place] (305979) or Rapid Plasma Reagin (RPR) Test With Reflex to Quantitative RPR and Confirmatory Treponema pallidum Antibodies (699099). Performed By: #### R PRQ #### [facility] [address] [place] [address] Dr. Dawn Guzman RUBELLA AB IGGon 12-17-2022 Rubella Antibodies, IgG 8.22 index Normal Immune >0.99 [facility] Comment on above: Result Comment: Non- immune <0.90 Equivocal 0.90 - 0.99 Immune >0.99 Performed By: #### R UBIGG #### [facility] [address] [place] [address] Dr. Dawn Guzman BOX TEST SENT OUTon 12-17-19 23 SENT TO REF LAB 12/16/2022 Normal [facility] Comment on above: Performed By: #### B OX #### [facility] [address] [place] [address] Dr. Dawn Guzman CBC AUTO DIFFon 12-16-2022 BASO # 0.0 103/ul Normal 0.0-0.1 [facility] Comment on above: Performed By: #### C BC #### [facility] [address] [place] [address] Dr. Dawn Guzman Basophils/100 WBC (Bld) 0.3 % Normal 0.2-2.0 [facility] Comment on above: Performed By: #### C BC #### [facility] [address] [place] [address] Dr. Dwan Guzman EO # 0.1 103/ul Normal 0.0-0.7 [facility] Comment on above: Performed By: #### C BC #### [facility] [address] [place] [address] Dr. Dawn Guzman Eosinophils/100 WBC (Bld) 0.8 % Critically low 0.9-7.0 [facility] Comment on above: Performed By: #### C BC #### [facility] [address] [place] [address] Dr. Dawn Guzman Erythrocyte distribution width (RBC) [Ratio] 14.5 % Normal 11.0-15.0 [facility] Comment on above: Performed By: #### C BC #### [facility] [address] [place] [address] Dr. Dawn Guzman Hematocrit (Bld) [Volume fraction] 37.0 % Normal 36.0-48.0 [facility] Comment on above: Performed By: #### C BC #### [facility] [address] [place] [address] Dr. Dawn Guzman Hemoglobin (Bld) [Mass/Vol] 12.1 g/dL Normal 12.0-16.0 [facility] Comment on above: Performed By: #### C BC #### [facility] [address] [place] [address] Dr. Dawn Guzman IG # 0.03 10e3/ul Normal 0.00-0.03 [facility] Comment on above: Performed By: #### C BC #### [facility] [address] [place] [address] Dr. Dawn Guzman IG % 0.3 % Normal 0.0-0.5 [facility] Comment on above: Performed By: #### C BC #### [facility] [address] [place] [address] Dr. Dawn Guzman LYMPH # 2.5 103/ul Normal 1.2-3.8 [facility] Comment on above: Performed By: #### C BC #### [facility] [address] [place] [address] Dr. Dawn Guzman Lymphocytes/100 WBC (Bld) 23.9 % Normal 20.5-60.0 [facility] Comment on above: Performed By: #### C BC #### [facility] [address] [place] [address] Dr. Dawn Guzman MANUAL DIFF REQ NO Normal [facility] Comment on above: Performed By: #### C BC #### [facility] [address] [place] [address] Dr. Dawn Guzman MCH (RBC) [Entitic mass] 27.2 pg Normal 26.7-34.0 [facility] Comment on above: Performed By: #### C BC #### [facility] [address] [address] [address] Dawn Guzman MCHC (RBC) [Mass/Vol] 32.7 g/dL Normal 29.9-35.2 [facility] Comment on above: Performed By: #### C BC #### [facility] [address] [place] [address] [address] Dawn Guzman MCV (RBC) [Entitic vol] 83.1 fL Normal 81.0-99.0 [facility] Comment on above: Performed By: #### C BC #### [facility] [address] [place] [address] Dr. Dawn Guzman MONO # 0.7 103/ul Normal 0.3-0.8 [facility] Comment on above: Performed By: #### C BC #### [facility] [address] [place] [address] Dr. Dawn Guzman Monocytes/100 WBC (Bld) 6.8 % Normal 1.7-12.0 [facility] Comment on above: Performed By: #### C BC #### [facility] [address] [place] [address] Dr. Dawn Guzman NEUT # 7.2 103/ul Critically high 1.4-6.5 [facility] Comment on above: Performed By: #### C BC #### [facility] [address] [place] [address] Dr. Dawn Guzman Neutrophils/100 WBC (Bld) 67.9 % Normal 43.0-75.0 [facility] Comment on above: Performed By: #### C BC #### [facility] [address] [place] [address] Dr. Dawn Guzman Platelet mean volume (Bld) [Entitic vol] 8.7 fL Critically low 9.5-13.5 [facility] Comment on above: Performed By: #### C BC #### [facility] [address] [place] [address] Dr. Dawn Guzman PLT 319 103/ul Normal 150-450 [facility] Comment on above: Performed By: #### C BC #### [facility] [address] [address] [address] Dawn Guzman RBC 4.45 106/ul Normal 4.20-5.40 [facility] Comment on above: Performed By: #### C BC #### [facility] [address] [address] [address] Dawn Guzman WBC 10.6 103/ul Normal 4.0-11.0 [facility] Comment on above: Performed By: #### C BC #### [facility] [address] [address] [address] Dawn Guzmna CULTURE URINEon 12-16-2022 CULTURE URINE Culture Observations: MODERATE GROWTH OF MIXED GENITAL RAMESH. NO POTENTIAL PATHOGENS SEEN. Normal [facility] Comment on above: Performed By: #### B OX #### [facility] [address] [place] [address] Dr. Dawn Guzman GLYCOHEMOGLOBIN A1Con 2022 ADA RECOMMENDATION SEE BELOW Normal [facility] Comment on above: Result Comment: ADA RECOMMENDED LIMIT 4.0 - 6.0 ADA THERAPEUTIC TARGET < 7.0 ACTION SUGGESTED > 7.0 Performed By: #### A 1C #### [facility] [address] [place] [address] Dr. Dawn Guzman Glucose [Mass/Vol] 117 mg/dL Normal [facility] Comment on above: Performed By: #### A 1C #### [facility] [address] [place] [address] Dr. Dawn Guzman HbA1c (Bld) [Mass fraction] 5.7 % Normal 4.5-6.2 [facility] Comment on above: Performed By: #### A 1C #### [facility] [address] [place] [address] Dr. Dawn Guzman TSHon 12-16-2022 TSH 0.050 uIU/mL Critically low 0.358-3.740 [facility] Comment on above: Performed By: #### B OX #### [facility] [address] [place] [address] Dr. Dawn Guzman TYPE AND SCREENon 12-16-2022 TYPE AND SCREEN Negative Normal [facility] Comment on above: Performed By: #### T NS #### [facility] [address] [address] [address] Dawn Guzman US PREG TVon 12-16-2022 US PREG TV EXAMINATION: US PREG TV HISTORY: Missed period COMPARISON: No relevant comparison available. FINDINGS: GESTATIONAL SAC: Present and normal appearing. YOLK SAC: Present and normal appearing. POLE: Present and normal appearing. CARDIAC: Present. UTERUS: Normal size and appearance. OVARIES: Right: Not seen. Left: Not seen. CERVIX: 4.3 cm in length and closed. CUL-DE-SAC: Normal. OTHER: None. AGE BY LMP: 9 weeks 6 days ABDIRIZAK BY LMP: 07/15/2023 AGE BY US CRL: 9 weeks 1 day ABDIRIZAK BY US CRL: 07/20/2023 IMPRESSION: 1. Single live intrauterine . Electronically authenticated by: MELVIN LUGO Date: 2022-12-16 08:56 Normal [facility] Provider Letteron 11-11-2022 Provider Letter November 11, 2022 SHADIA JAVED [address] [place] [address] SHADIA JAVED 1995 Dear Shadia Javed_ , We have been trying to reach you with no success. It is important that you return our call regarding your referral from Dr. Pedro upon receiving this letter. Also, at the time of your call, please provide us with your current information. Thank you for your prompt attention to this matter. Sincerely, General Surgery [place] [phone] [facility] PREG QUANT HCGon 11-07-2022 HCG QUANT 35 mIU/mL Normal [facility] Comment on above: Performed By: #### P REGQNT #### [facility] [address] [place] [address] Dr. Dawn Guzman HCG RANGE SEE BELOW Normal [facility] Comment on above: Result Comment: 5-50 0.2-1 WEEK 50-500 1-2 WEEKS 100-5,000 2-3 WEEKS 500-10,000 3-4 WEEKS 1,000-50,000 4-5 WEEKS 10,000-100,000 5-6 WEEKS 15,000-200,000 6-8 WEEKS 10,000-100,000 2-3 MONTHS Performed By: #### P REGQNT #### [facility] [address] [place] [address] Dr. Dawn Guzman Physician Referralon 023 Physician Referral [id number] [facility] Vital Signs Date Time Vital Sign Value Performing Clinician Carlota ramon 01-08-2024 18:14-0400 Body height 157.48 cm DO Marvin Keister Work Phone: [facility] 01-08-2024 18:14-0400 Body temperature 98.8 [degF] DO Marvin Keister Work Phone: [facility] 01-08-2024 18:14-0400 Body weight 96.15 kg DO Marvin Keister Work Phone: [facility] 01-08-2024 18:14-0400 Diastolic blood pressure 88 mm[Hg] DO Mravin Keister Work Phone: [facility] 01-08-2024 18:14-0400 Heart rate 70 /min DO Marvin Keister Work Phone: [facility] 01-08-2024 18:14-0400 Respiratory rate 18 /min DO Marvin Keister Work Phone: [facility] 01-08-2024 18:14-0400 SaO2% (BldA) [Mass fraction] 99 % DO Marvin Keister Work Phone: [facility] 01-08-2024 18:14-0400 Systolic blood pressure 132 mm[Hg] DO Marvin Keister Work Phone: [facility] 01-04-2024 01:39-0400 Diastolic blood pressure 68 mm[Hg] DO Marvin Keister Work Phone: [facility] 01-04-2024 01:39-0400 Heart rate 82 /min DO Marvin Kemike Work Phone: [facility] 01-04-2024 01:39-0400 Respiratory rate 18 /min DO Marvin Cutler Work Phone: [facility] 01-04-2024 01:39-0400 SaO2% (BldA) [Mass fraction] 100 % DO Marvin Birchister Work Phone: [facility] 01-04-2024 01:39-0400 Systolic blood pressure 131 mm[Hg] DO Marvin Cutler Work Phone: [facility] 01-03-2024 23:16-0400 Body temperature 97.7 [degF] DO Marvin Cutler Work Phone: [facility] 01-03-2024 23:13-0400 Body height 157.48 cm DO Marvin Cutler Work Phone: [facility] 01-03-2024 23:13-0400 Body weight 90.71 kg DO Marvin Cutler Work Phone: [facility] 09-11-2023 10:44-0500 Body height 157.5 cm Holly Cortez APRN-SOFTWARE ENGINEER INTERN Work Phone: [facility] 09-11-2023 10:44-0500 Body mass index (BMI) [Ratio] 40.64 kg/m2 Holly Cortez SPIRAL MACHINE OPERATOR-SOFTWARE ENGINEER INTERN Work Phone: [facility] 09-11-2023 10:44-0500 Body weight 100.79 kg Holly Cortez SPIRAL MACHINE OPERATOR-SOFTWARE ENGINEER INTERN Work Phone: [facility] 09-11-2023 10:44-0500 Diastolic blood pressure 77 mm[Hg] Holly Cortez SPIRAL MACHINE OPERATOR-SOFTWARE ENGINEER INTERN Work Phone: [facility] 09-11-2023 10:44-0500 Heart rate 62 /min Holly Cortez SPIRAL MACHINE OPERATOR-SOFTWARE ENGINEER INTERN Work Phone: [facility] 09-11-2023 10:44-0500 Systolic blood pressure 134 mm[Hg] Holly Cortez SPIRAL MACHINE OPERATOR-SOFTWARE ENGINEER INTERN Work Phone: [facility] Encounters Encounter Date Encounter Type Care Provider Facility Start: 01-09-2024 End: 01-12-2024 Evaluation and management of inpatient DO Marvin Cutler Work Phone: [facility]-[address] [place] [address] Work Phone: Start: 01-08-2024 ambulatory Meng Islas acility:[facility] Start: 01-03-2024 End: 01-04-2024 Emergency department patient visit DO Marvin Cutler Work Phone: [facility]-Emergency Room Work Phone: Start: 09-11-2023 End: 09-11-[address] [facility] Start: 09-11-2023 End: 09-11-2023 Office outpatient new 30 minutes Holly Cortez SPIRAL MACHINE OPERATOR-SOFTWARE ENGINEER INTERN Work Phone: [facility] Comment on above: Hemorrhoids, unspeci fied hemorrhoid type (Primary Dx); Skin tags, anus or rectum; Body mass index (BMI) 40.0-44.9, adult ([facility]) Start: 08-17-2023 End: 08-17-2023 ambulatory DISHA LAURA Not Available Start: 07-27-2023 End: 07-27-2023 ambulatory DISHA LAURA Not Available Start: 07-27-2023 End: 07-27-2023 ambulatory DISHA LAURA Not Available Start: 07-15-2023 End: 07-15-2023 ambulatory DISHA LAURA Not Available Start: 07-15-2023 End: 07-15-2023 ambulatory DISHA LAURA Not Available Start: 12-16-2022 End: 12-17-[address] ROBINA MANCINI . Facility:[facility] Start: 12-16-2022 End: 12-17-[address] ROBINA MANICNI . Facility:[facility] Start: 12-04-2022 End: 12-04-[address] IDALMIS PEDRO . Facility:[facility] Start: 11-07-2022 End: 11-08-[address] IDALMIS PEDRO . Facility:[facility] Start: 11-07-2022 ambulatory Facility:[facility] Start: 03-21-[address] IDALMIS PEDRO . Facili ty:[facility] Procedures Date Procedure Procedure Detail Performing Clinician Start: 01-08-2024 CT of head without contrast DO Marvin Cutler Work Phone: Plan of Treatment Date Care Activity Detail Author Start: 12-22-2026 DTaP,Tdap and Td Vaccines (8 - Td or Tdap) DTaP,Tdap and Td Vaccines (8 - Td or Tdap) [facility] Start: 09-11-2024 Adult BMI Screening Adult BMI Screen ing [facility] Start: 09-11-2024 Tobacco Screening Tobacco Screening [facility] Start: 01-04-2024 [facility] Start: 05-01-2023 Influenza vaccination Influenza Vacc ine [facility] Start: 2016 Screening for malign ant neoplasm of cervix Pap Smear [facility] Start: 2013 Adult BMI Follow Up Plan Adult BMI Follow Up Plan [facility] Start: 2007 Depression Screening Depression Scre ening [facility] Start: 1995 Tobacco Counseling Tobacco Counselin [facility] Patient Education Dep ression (DC) [facility] Work Phone: Patient referral [facility] Work Phone: Immunizations Immunization Date Immunization Notes Care Provider Rc ames 07-05-2009 influenza virus vaccine, unspecified formulation Holly Cortez SPIRAL MACHINE OPERATOR-SOFTWARE ENGINEER INTERN Work Phone: [facility] Payers Date Payer Category Payer Medicaid [id number] 2022 Medicaid [employer] MEDICAID [facility]LY [facility] MEDICAID [id number] 2022-Present [address] [place] [address] [id number] 1995 Unknown [id number] 1995 Unknown [id number] 1995 Unknown [id number] 1995 Unknown [id number] 1995 Unknown [id number] 1995 Unknown [id number] 1995 Unknown [id number] 1995 Unknown [id number] 1995 Unknown [id number] 1959 Self-pay Medicaid [employer] [id number] Unknown [id number] Unknown [id number] Unknown [id number] Social History Date Type Detail Facility [facility] Start: 01-04-2024 End: 01-08-2024 Tobacco smoking status AKIS Smoker (finding) [facility] Start: 1995 Sex Assigned At Female F [facility] Start: 02-08-2021 [facility] History of tobacco use Cigarette Smoker P [facility] Start: 02-08-2021 Tobacco use and exposure Smokeless tobacco non-user [facility] Start: 09-11-2023 Alcohol intake Current drinke r of alcohol (finding) [facility] Start: 10-11-2020 End: 09-11-2023 History of Social function [facility] Start: 10-11-2020 End: 09-11-2023 Tobacco use panel [facility] Housing Instability Unknown [facility] Start: 09-11-2023 Alcohol Comment Socially [facility] Start: 10-22-2022 [facility] Start: 04-03-2023 Gender identity Identifies as female gender (finding) [facility] Start: 04-03-2023 Sexual orientation Heterosexual (fin ding) [facility] History of Present illness Narrative 09-11-2023 Holly Cortez, SPIRAL MACHINE OPERATOR-SOFTWARE ENGINEER INTERN - 09/11/2023 10:30 AM EST Note Date & Type Note Facility 09-11-2023 History of Present illness Narrative Images from the original note were not included. Chief Complaint: Hemorrhoids History of Present Illness Shadia Lock is a 27 y.o. female who presents to the office for hemorrhoids. She states she has had them for a while. Associated symptoms include intermittent hematochezia. She recently had a baby on July 08. Symptoms were worse when she was . She denies any rectal pain or tearing sensation. She denies any constipation. She reports diarrhea. She states she sits on the toilet for long periods of time on her phone. She has been trying to eat healthier recently. Review of Systems Constitutional: Negative for fever and unexpected weight change. HENT: Negative for trouble swallowing. Respiratory: Negative for shortness of breath. Cardiovascular: Negative for chest pain and palpitations. Gastrointestinal: Positive for diarrhea and blood in stool. Negative for nausea, vomiting, abdominal pain, constipation and black tarry stool. Genitourinary: Negative for dysuria and difficulty urinating. Musculoskeletal: Negative for joint swelling and gait problem. Skin: Negative for rash and wound. Allergic/Immunologic: Negative for immunocompromised state. Neurological: Negative for dizziness, weakness and light-headedness. Hematological: Does not bruise/bleed easily. Psychiatric/Behavioral: Negative for behavioral problems and confusion. Past Medical History: Diagnosis Date Abnormal ultrasound Anemia Anxiety Bipolar disorder ([facility]) Depression Obesity affecting Tobacco use in Past Surgical History: Procedure Laterality Date SECTION TUBAL LIGATION No Known Allergies Current Outpatient Medications: citalopram (CeleXA) 40 mg tablet, Take 1 tablet (40 mg total) by mouth in the morning., Disp: , Rfl: ondansetron (ZOFRAN) 4 mg tablet, Take 1 tablet (4 mg total) by mouth every 8 (eight) hours as needed for nausea or vomiting., Disp: , Rfl: Social History Socioeconomic History Marital status: Spouse name: Not on file Number of children: Not on file Years of education: Not on file Highest education level: Not on file Occupational History Not on file Tobacco Use Smoking status: Every Day Types: Cigarettes Smokeless tobacco: Never Vaping Use Vaping Use: Never used Substance and Sexual Activity Alcohol use: Yes Comment: Socially Drug use: Yes Types: Marijuana Sexual activity: Yes Partners: Male control/protection: Surgical Other Topics Concern Not on file Social History Narrative Not on file Social Determinants of Health Financial Resource Strain: Not on file Food Insecurity: No Food Insecurity (09/11/2023) Hunger Screening Food Insecurity - Worry: Never True Food Insecurity - Inability: Never True Transportation Needs: Not on file Physical Activity: Not on file Stress: Not on file Social Connections: Not on file Interpersonal Safety: Not on file Family History Problem Relation Age of Onset Thyroid Issues Mother Heart attack Mother Heart disease Father Stent Placement Cancer Father Heart disease Paternal Aunt Heart disease Paternal Grandfather Objective Physical Exam Constitutional: Appearance: Normal appearance. She is obese. HENT: Head: Normocephalic and atraumatic. Mouth/Throat: Mouth: Mucous membranes are moist. Eyes: Pupils: Pupils are equal, round, and reactive to light. Cardiovascular: Rate and Rhythm: Normal rate. Pulmonary: Effort: Pulmonary effort is normal. No respiratory distress. Abdominal: General: There is no distension. Palpations: Abdomen is soft. Genitourinary: Rectum: No mass, tenderness or anal fissure. Normal anal tone. Comments: Skin tags likely due to old hemorrhoids. No gross blood. No anal fissure. No pain. Musculoskeletal: General: Normal range of motion. Cervical back: Normal range of motion. Skin: General: Skin is warm and dry. Neurological: Mental Status: She is alert and oriented to person, place, and time. Mental status is at baseline. Vital Signs: Blood pressure 134/77, pulse 62, height 157.5 cm (5' 2 ), weight 100.8 kg (222 lb 3.2 oz), last menstrual period 10/08/2022, unknown if currently . Respiratory Source: No data recorded Admission Weight: Weight: 100.8 kg (222 lb 3.2 oz) Labs Lab Results Component Value Date WBC 10.2 (A) 12/24/2020 HGB 10.8 (A) 12/24/2020 HCT 34 (A) 12/24/2020 PLT 254 12/24/2020 Lab Results Component Value Date BUN 7.0 12/24/2020 CREATININE 0.58 12/24/2020 No results found for: AMYLASE No results found for: LIPASE Lab Results Component Value Date ALT 18 12/24/2020 AST 17 12/24/2020 No results found for: INR , PROTIME Assessment Skin tags likely due to old hemorrhoids 2 months Obesity with a BMI of 40.64 Plan 64 oz water daily. High-fiber diet. Do not sit on the toilet for long periods of time. Weight loss. Sitz baths 3 times a day during flares. Patient was provided with an informational handout. She will follow-up as needed. Evaluation included: Preparing to see the patient (e.g., review of tests) Obtaining and/or reviewing separately obtained history Performing a medically appropriate examination and/or evaluation Counseling and educating the patient/family/caregiver Referring and communicating with other health childcare aide Hemorrhoids, unspecified hemorrhoid type [K64.9] FARTUN ZAVALETA [facility] [place] This note was created with the assistance of a speech recognition program. While intending to generate a timely document that accurately reflects the content of the visit, no guarantee can be provided that every grammatical or spelling mistake has been or will be identified or corrected. Thank you for your understanding. FARTUN Zavaleta 09/11/23 1115 documented in this encounter [facility] Evaluation note Note Date & Type Note Facility Evaluation note No assessment information availa ble [facility] Work Phone: Evaluation note Note Date & Type Note Facility Evaluation note Diagnosis Hemorrhoids, unspecified hemorrhoid type- Primary Skin tags, anus or rectum Residual hemorrhoidal skin tags Body mass index (BMI) 40.0-44.9, adult (CMS-HCC) documented in this encounter [facility] Hospital Discharge instructions Note Date & Type Note Facility Hospital Discharge instructions Additional Instructions Follow-up as instructed in your safety plan. [facility] Work Phone: Instructions Attachments Note Date & Type Note Facility Instructions The following attachments cannot be sent through Care Everywhere.Hemorrhoids (Czech)documented in this encounter [facility] Summary Purpose Family History No Family History Records FoundNo Family History Records FoundNo Family History Records FoundNo Family History Records FoundNo Family History Records FoundNo Family History Records Found Advance Directives Advance Directive Response Recorded Date/ Time Advance Directives No July 1:06pm Chief Complaint and Reason for Visit Chief Complaint MHP Chief Complaint MHP forgetful Additional Source Comments INFORMATION SOURCE (unrecogn ized section and content) DATE CREATED AUTHOR 11/12/2022 [facility] DATE CREATED AUTHOR AUTHOR'S ORGANIZ ATION 12/21/2022 [facility] DATE CREATED AUTHOR AUTHOR'S ORGANIZ ATION 07/27/2023 [facility] DATE CREATED AUTHOR AUTHOR'S ORGANIZ ATION 09/13/2023 [facility] DATE CREATED AUTHOR AUTHOR'S ORGANIZ ATION 03/03/2024 [facility] DATE CREATED AUTHOR AUTHOR'S ORGANIZ ATION 06/03/2024 [facility] Care Teams (unrecognized sec tion and content) Team Status: Active Member Role Status Dates Idalmis Pedro MD Primary Care Provider Active Team Status: Inactive Member Role Status Dates Marvin Cutler DO Emergency Provider Active Start: January 03, 2024 End: January 04, 2024 Idalmis Pedro MD Primary Care Provider Active Start: January 03, 2024 End: January 04, 2024 Team Status: Active Member Role Status Dates Idalmis Pedro MD Primary Care Provider Active Start: January 09, 2024 Won Harris PA-C Emergency Provider Active Start: January 09, 2024 Meng Ross MD Admit Provide r, Attending Provider Active Start: January 09, 2024 Manager Library Relationship Specialty Start Date End Date Idalmis Pedro MD [address] [place] [address] PCP - General Family Medicine 02/08/21 Goals (unrecognized section and content) Goals may be documented in a n alternate sectionGoals may be documented in an alternate sectionNot on filedocumented as of this encounter Reason for Visit (unrecogniz ed section and content) Reason Comments Hemorrhoids Hemorrhoids, referre d by Dr. Mancini FOR RECORDS PERTAINING TO PATIENTS WHO ARE OR HAVE BEEN ENROLLED IN A CHEMICAL DEPENDENCY/SUBSTANCEABUSE PROGRAM, SOME INFORMATION MAY BE OMITTED. This clinical summary was aggregated from multiple sources. Caution should be exercised in using it in the provision of clinical care. This summary normalizes information from multiple sources, and as a consequence, information in this document may materially change the coding, format and clinical context of patient data. In addition, data may be omitted in some cases. CLINICAL DECISIONS SHOULD BE BASED ON THE PRIMARY CLINICAL RECORDS. [employer] provides no warranty or guarantee of the accuracy or completeness of information in this document.
== END 2025-04-14 15:46 | disposition home or self-care (01) ==
LOC: US 15:45
PROVIDERS: PCP Family Medicine; Visit Provider Family Medicine
DX: N93.8 Other specified abnormal uterine and vaginal bleeding (principal)
CPT/HCPCS: 76830